=== PATIENT | female | born 1975 ===

== ENCOUNTER 2020-03-13 12:33 | Outpatient (REF) | payer OTHER, SELFPAY | END 2020-03-13 12:34 | disposition home or self-care (01) | LOC: HO.HMGCLDS 12:33 | PROVIDERS: PCP Internal Medicine; Visit Provider Internal Medicine | DX: Z20.828 Contact with and (suspected) exposure to other viral communicable diseases (principal) | CPT/HCPCS: 87635 ==

== ENCOUNTER 2020-03-25 14:33 | Outpatient (REF) | payer OTHER, SELFPAY ==
--- NOTE | 2020-03-25 | MM_ITS ---
EXAMINATION: MM DIAGNOSTIC DIGITAL BREAST TOMOSYNTHESIS, BILATERAL CLINICAL INFORMATION: Probable benign tightly grouped calcifications anterior central 3:00 left breast initially noted at baseline exam. Due for yearly. The lifetime risk of breast cancer based on the Tyrer-Cuzick Model is 8%. COMPARISON: Mammography: 03/19/2019, 09/08/2018, 03/03/2018, 02/21/2018 (baseline, BI-RADS 0). TECHNIQUE: Digital breast tomosynthesis is performed in both the craniocaudal and mediolateral oblique views along with computer-aided detection (CAD). Synthesized 2D images are generated from the tomosynthesis. Additional magnification left CC and magnification left ML views are obtained. FINDINGS: There are scattered areas of fibroglandular density (ACR BI-RADS breast composition Category b). Breast tissue composition borders on heterogeneously dense. There is no interval mass or architectural abnormality. No abnormal calcifications. The grouped benign calcifications anterior central 3:00 left breast are stable and now considered benign. There are scattered punctate calcifications in each breast which are benign as well. The axilla and skin contours are unremarkable. Results are provided to the patient at time of visit by the technologist. MM/MM tomosynthesis diagnostic BI IMPRESSION: No mammographic evidence of malignancy. Left breast calcifications for follow-up are now considered benign. ASSESSMENT: BI-RADS 2: Benign RECOMMENDATION: Routine annual mammography screening. This patient's information was entered into a reminder system with a target due date for their next mammogram.
== END 2020-03-25 14:34 | disposition home or self-care (01) ==
LOC: HO.MAMMO 14:33
PROVIDERS: Visit Provider Internal Medicine
DX: R92.1 Mammographic calcification found on diagnostic imaging of breast (principal)
CPT/HCPCS: 77062; 77066

== ENCOUNTER 2020-09-18 08:38 | Outpatient (REF) | payer OTHER, SELFPAY ==
[2020-09-18 15:19] LABS: CT PCR NOT DETECTED (Not Detect.); NG PCR NOT DETECTED (Not Detect.)
[2020-09-19 08:52] LABS: BV Int Neg Control Negative (Negative); BV Int Pos Control Positive (Positive)
[2020-09-22 19:22] LABS: HPV mRNA E6/E7 rflx Not Detected (Not Detected)
== END 2020-09-18 08:39 | disposition home or self-care (01) ==
LOC: HO.LAB 08:38
PROVIDERS: PCP Internal Medicine; Visit Provider Obstetrics & Gynecology
DX: Z01.419 Encounter for gynecological examination (general) (routine) without abnormal findings (principal); Z11.51 Encounter for screening for human papillomavirus (HPV); Z11.3 Encounter for screening for infections with a predominantly sexual mode of transmission; N92.1 Excessive and frequent menstruation with irregular cycle; N93.0 Postcoital and contact bleeding; R32 Unspecified urinary incontinence; B37.3 Candidiasis of vulva and vagina
CPT/HCPCS: 87480; 87491; 87510; 87591; 87624; 87660; 88142

== ENCOUNTER 2020-09-19 09:33 | Outpatient (REF) | payer OTHER, SELFPAY ==
[2020-09-19 10:40] LABS: Hematocrit 36.2 % (37-47); Hemoglobin 11.6 g/dl (12.0-16.0); Mean Corpuscular Hemoglobin 27.2 pg (27.0-33.0); Mean Platelet Volume 10.5 fL (9.4-12.3); Platelet Count 295 X10*3/uL (160-400); Red Blood Count 4.26 X10*6/uL (4.20-5.50); Red Cell Distribution Width 13.6 % (11.0-16.0); White Blood Count 6.3 X10*3/uL (4.8-10.8)
[2020-09-19 11:13] LABS: HCG Quantitative < 2 mIU/mL; Thyroid Stimulating Hormone 1.12 uIU/mL (0.32-4.0)
== END 2020-09-19 09:34 | disposition home or self-care (01) ==
LOC: HO.LAB 09:33
PROVIDERS: PCP Internal Medicine; Visit Provider Obstetrics & Gynecology
DX: N92.1 Excessive and frequent menstruation with irregular cycle (principal)
CPT/HCPCS: 36415; 84443; 84702; 85027

== ENCOUNTER 2020-09-29 13:13 | Outpatient (REF) | payer OTHER, SELFPAY ==
--- NOTE | ~2020-09-29 | US_ITS ---
EXAMINATION: PELVIC ULTRASOUND CLINICAL INFORMATION: Specimen frequent menstruation with irregular cycle COMPARISON: Previous exam most recent June 2016 TECHNIQUE: Transabdominal and transvaginal pelvic ultrasound was performed. Transvaginal exam was performed for better visualization of the uterus and ovaries. FINDINGS: The uterus is anteverted and measures 9.1 x 4.9 x 5.5 cm in dimension. There is a small hypoechoic lesion in the right lower uterine body near the endometrium measuring 0.6 x 0.4 x 0.8 cm suggestive of a small fibroid. No other focal uterine lesion is seen. Endometrial thickness is normal measuring 0.3 cm. There are nabothian cysts in the cervix. The right ovary is normal-appearing and measures 2.6 x 1.3 x 1.9 cm. The left ovary is not seen. There is no fluid in the pelvis. US/US transvaginal IMPRESSION: Small right uterine body fibroid. Normal thickness endometrium. Left ovary not seen.
--- NOTE | ~2020-09-29 | US_ITS ---
EXAMINATION: PELVIC ULTRASOUND CLINICAL INFORMATION: Specimen frequent menstruation with irregular cycle COMPARISON: Previous exam most recent June 2016 TECHNIQUE: Transabdominal and transvaginal pelvic ultrasound was performed. Transvaginal exam was performed for better visualization of the uterus and ovaries. FINDINGS: The uterus is anteverted and measures 9.1 x 4.9 x 5.5 cm in dimension. There is a small hypoechoic lesion in the right lower uterine body near the endometrium measuring 0.6 x 0.4 x 0.8 cm suggestive of a small fibroid. No other focal uterine lesion is seen. Endometrial thickness is normal measuring 0.3 cm. There are nabothian cysts in the cervix. The right ovary is normal-appearing and measures 2.6 x 1.3 x 1.9 cm. The left ovary is not seen. There is no fluid in the pelvis. US/US pelvic complete IMPRESSION: Small right uterine body fibroid. Normal thickness endometrium. Left ovary not seen.
== END 2020-09-29 13:14 | disposition home or self-care (01) ==
LOC: HO.US 13:13
PROVIDERS: PCP Internal Medicine; Visit Provider Obstetrics & Gynecology
DX: N92.1 Excessive and frequent menstruation with irregular cycle (principal)
CPT/HCPCS: 76830; 76856

== ENCOUNTER 2020-10-02 13:40 | Outpatient (REF) | payer OTHER, SELFPAY | END 2020-10-02 13:41 | disposition home or self-care (01) | LOC: HO.LAB 13:40 | PROVIDERS: PCP Internal Medicine; Visit Provider Obstetrics & Gynecology | DX: N92.1 Excessive and frequent menstruation with irregular cycle (principal) | CPT/HCPCS: 58100; 81025; 88305 ==

== ENCOUNTER → 2020-10-07 11:33 | Outpatient (BNVA) | payer OTHER, SELFPAY | PROVIDERS: PCP Internal Medicine; Visit Provider Obstetrics & Gynecology ==

== ENCOUNTER → 2020-11-20 15:34 | Outpatient (BNVA) | payer OTHER, SELFPAY | PROVIDERS: PCP Internal Medicine; Visit Provider Obstetrics & Gynecology | DX: Z30.430 Encounter for insertion of intrauterine contraceptive device (principal); N92.1 Excessive and frequent menstruation with irregular cycle | CPT/HCPCS: 58300 ==

== ENCOUNTER 2020-12-18 13:46 | Outpatient (REF) | payer OTHER, SELFPAY ==
[2020-12-19 10:19] LABS: BV Int Neg Control Negative (Negative); BV Int Pos Control Positive (Positive)
[2020-12-19 11:47] LABS: CT PCR NOT DETECTED (Not Detect.); NG PCR NOT DETECTED (Not Detect.)
== END 2020-12-18 13:47 | disposition home or self-care (01) ==
LOC: HO.LAB 13:46
PROVIDERS: PCP Internal Medicine; Visit Provider Obstetrics & Gynecology
DX: Z30.431 Encounter for routine checking of intrauterine contraceptive device (principal); B96.89 Other specified bacterial agents as the cause of diseases classified elsewhere; N76.0 Acute vaginitis
CPT/HCPCS: 87480; 87491; 87510; 87591; 87660; 99212

== ENCOUNTER 2020-12-31 14:33 | Outpatient (REF) | payer OTHER, SELFPAY | END 2020-12-31 14:34 | disposition home or self-care (01) | LOC: HO.LNP 14:33 | PROVIDERS: PCP Internal Medicine | DX: R32 Unspecified urinary incontinence (principal); R31.9 Hematuria, unspecified | CPT/HCPCS: 51798; 87086; 99202; 99212 ==

== ENCOUNTER → 2021-01-13 15:28 | Outpatient (BNVA) | payer OTHER, SELFPAY | PROVIDERS: PCP Internal Medicine ==

== ENCOUNTER 2021-05-01 09:27 | Emergency (ER) | payer OTHER, SELFPAY ==
--- NOTE | ~2021-05-01 | CT_ITS ---
EXAMINATION: CT HEAD WITHOUT CONTRAST CLINICAL INFORMATION: Severe migraine with photophobia COMPARISON: None TECHNIQUE: Contiguous axial imaging was performed from the skull base to vertex without intravenous administration of contrast. This CT examination was performed using dose optimization techniques as appropriate, variously including the following: *Automated exposure control *Adjustment of mA and/or kV according to patient size (this includes techniques or standardized protocols for targeted exams where dose is matched to indication/reason for exam; i.e. extremities or head) *Use of iterative reconstruction technique DLP: 748 mGy-cm FINDINGS: There is no evidence of acute intracranial hemorrhage or territorial infarction. No abnormal mass effect or midline shift is seen. Crabtree to white matter differentiation is well preserved. No extra-axial fluid collections are identified. The ventricles are normal in size. There is no abnormal attenuation within the brain parenchyma. The osseous structures and soft tissues are normal. There is mild mucoperiosteal thickening bilateral maxillary sinuses. Rest the paranasal sinuses and mastoid air cells are well-aerated. CT/CT head/brain wo con IMPRESSION: No acute intracranial process seen
[2021-05-01 10:43] VITALS: BP 146/73; PULSE 73; RESP 16; TEMP 36.8; O2SAT 98; BMI 36.3
--- NOTE | 2021-05-01 11:16 | ED_ITS ---
HPI - Headache General Chief Complaint: Headache Stated Complaint: migraine Time Seen by Provider: 05/01/21 11:14 Source: patient Mode of arrival: ambulatory Limitations: no limitations History of Present Illness HPI Narrative: 46-year-old female past medical history significant for obesity, tension-type headache, anxiety, depression presents to the emergency department with complaints of a migraine, light sensitivity, and decreased appetite X 3 days. Patient tells me that this headache has been progressively worsening over the past 3 days, states that started in the occipital portion of her head but has moved to the front. she tells me she is prescribed sumatriptan which she has been taking around the clock, and it has not been helping. She tells me that this feels like her typical migraine however she is very worried because she recently found out that her mom has a brain tumor, and they mention that might be hereditary. She also mentions that she is under lot of stress, she is taking care of a sick family member at home. She reports associated nausea. But she has not vomited. She denies chest pain, shortness of breath, fevers, chills, vomiting, diarrhea, abdominal pain, dizziness, vision changes, weakness. MD elicited complaint: headache and migraine Pertinent past history: migraines Onset (ago): day(s) (Three) Onset description: gradually Location: frontal Severity: moderate Pain scale (0-10): 10 Quality & Timing: throbbing Exacerbating factors: light and other (Food) Relieving factors: nothing Associated symptoms: nausea, photophobia and sensitivity to sound Treatments prior to arrival: other (Sumatriptan) Related Data Home Medications Medication Instructions Recorded Confirmed cetirizine 10 mg tablet (Zyrtec) 10 mg PO DAILY PRN 10/07/20 02/17/21 levonorgestrel 20 mcg/24 hours (7 INTRAUTERINE 12/18/20 02/17/21 yrs) 52 mg intrauterine device (Mirena) Previous Rx's Medication Instructions Recorded bupropion HCl 150 mg 24 hr tablet, 150 mg PO QAM 90 Days #90 tab 02/17/21 extended release sumatriptan succinate 25 mg tablet 25 mg PO Q2-4H PRN 30 Days #9 tab 02/17/21 metronidazole 500 mg tablet 500 mg PO Q12H 7 Days #14 tab 03/13/21 cyclobenzaprine 10 mg tablet 10 mg PO BEDTIME PRN #7 tab 05/01/21 diphenhydramine HCl 25 mg capsule 25 mg PO BEDTIME PRN #14 cap 05/01/21 (Benadryl) metoclopramide HCl 10 mg tablet 10 mg PO Q6H PRN #14 tab 05/01/21 (Reglan) Allergies Allergy/AdvReac Type Severity Reaction Status Date / Time No Known Allergies Allergy Unknown UNKNOWN Verified 03/13/21 09:41 Review of Systems Review of Systems: Constitutional : No Weight loss, No Fever, No Chills, No Fatigue, No Malaise ENT/Mouth : No sore throat, No Rhinorrhea Eyes: No Eye Pain, No Swelling, No Redness Cardiovascular : No Chest Pain, No SOB, No Dyspnea on Exertion, No Orthopnea, No Edema, No Palpitations Respiratory : No Cough, No Sputum, No Wheezing Gastrointestinal : + Nausea, No Vomiting, No Diarrhea, No Constipation, No abdominal Pain, No Hematochezia, No Melena Genitourinary : No Dysuria, No Urinary Frequency, No Hematuria, Musculoskeletal : No joint pain, No Myalgias, No Joint Swelling Skin : No Skin Lesions, No rash Neuro : No Weakness, No Numbness, No Dizziness, + Headache All other systems reviewed and are negative Yes all other systems are reviewed and are negative [facility] Past Medical History Attestation statement: The following information was validated with the patient. Source: old records reviewed and nursing notes reviewed Medical History Allergic rhinitis Class 2 obesity with body mass index (BMI) of 36.0 to 36.9 in adult Depression with anxiety GEORGES (generalized anxiety disorder) Mild recurrent major depression Tension headache Urge and stress incontinence Surgical History History of gastric surgery History of laparoscopic cholecystectomy History of surgery History of tubal ligation Family History Family History Father Hypertension Overweight Stroke Prediabetes Enlarged heart Mother Osteoporosis Maternal Grandmother Stroke Diabetes Paternal Grandfather Prostate cancer Family/Other Substance use disorder Mental health disorder Social History Social History Housing: Apartment Alcohol intake: never Patient Tobacco Use Status: Never used Tobacco e-Cigarette/Vaping Use: Never Used Second Hand Smoke Exposure: No Use of substances other than those prescribed or required for medical reasons: No Advance Directives: No Advance Directives Information Provided: Yes service: No Current occupational status: employed Current occupational exposures/hazards: No Physical Exam Vital Signs: Vital Signs: Last Vital Signs Temp 98.2 F 05/01/21 10:43 Pulse 78 05/01/21 12:02 Resp 18 05/01/21 12:02 BP 142/90 H 05/01/21 12:02 Pulse Ox 98 05/01/21 12:02 BMI result Body Mass Index 36.3 Vital signs are stable, patient noted to be slightly hypertensive. Appearance: Alert.? Oriented X3.? No acute distress.? Head: Normocephalic, atraumatic, no step-offs or deformities Eyes: Pupils equal, round and reactive to light. Extraocular movements intact, no nystagmus or pain. ENT: Pharynx normal.? Neck: Normal inspection.? Neck supple.? CVS: Normal heart rate and rhythm.? Pulses normal.? Respiratory: No respiratory distress.? Breath sounds normal.? Abdomen: Soft and nontender.? Skin: Skin warm and dry.? Normal skin color.? Normal skin turgor.? Extremities: No lower extremity edema.? No calf ttp. 5/5 strength to bilateral upper and lower extremities Back: No midline tenderness, no C-spine tenderness, full range of motion, no CVA tenderness bilaterally Neuro: Oriented X 3.? No motor deficit.? No sensory deficit. Normal [id number], sepg-fl-qwog, hand circuit recorder. Course Reevaluation(s) Reevaluation #1: Labs show no acute infection, no anemia no electrolyte abnormalities. Urine is not concerning for urinary tract infection. CT of the head/brain negative. At this time patient's most likely diagnosis is tension type headache. She has noted significant improvement with fluids, Reglan, Benadryl and Toradol. At this time plan is to discharge patient home as she is feeling much better. I will discharge her on Reglan, Benadryl, and have advised her to take Excedrin [id number] as needed for migraines. She should follow-up with her PCP. And I have told her to return to the emergency department with new or worsening symptoms. Time: 12:34 MDM - Headache MDM Narrative Medical decision making narrative: [id number] YO F pmhx obesity, tension-type headache, anxiety, depression presents to the emergency department with complaints of a migraine, photophobia, and anorexia X3 days despite taking her normal headache medications sumatriptan. Upon physical examination patient appears well, she is lying on the stretcher in a dark room with her eyes closed. S1-S2 appreciated they have murmurs. Lungs are clear to auscultation. Abdomen soft nontender nondistended. No focal neuro deficits. Normal exjhoe-hk-mydr, mdtq-zv-lvel hand circuit recorder. Patient is ambulating with a steady gait, no ataxia. At this time this appears to be in normal tension type headache, patient tells me she frequently gets these, patient is under lot of stress, and this is consistent with her history and physical examination. Patient's physical examination, and history are not consistent with meningitis However, I will rule out intracranial pathologies, ICH. Plan at this time is to obtain basic labs, COVID, magnesium, urine, urine pregn tasneem, CT of the cervical spine, head/brain. She will be medicated for comfort. Lab Data Result diagrams: 05/01/21 11:46 12 11:46 Labs: Lab Results 05/01/21 12 12 Range/Units 11:46 11:46 11:46 WBC 8.7 (4.8-10.8) X10*3/uL RBC 4.63 (4.20-5.50) X10*6/uL Hgb 12.3 (12.0-16.0) g/dl Hct 38.9 (37.0-47.0) % MCV 84.0 (80.0-98.0) fL MCH 26.6 L (27.0-33.0) pg MCHC 31.6 (31.0-35.0) g/dl RDW 14.7 (11.0-16.0) % Plt Count 342 (160-400) X10*3/uL MPV 9.9 (9.4-12.3) fL Immature Gran % (Auto) 0.2 (0.0-0.4) % Neut % (Auto) 59.9 (45-73) % Lymph % (Auto) 32.8 (20-40) % [place] % (Auto) 5.7 (2-11) % Eos % (Auto) 1.1 (0-4) % Baso % (Auto) 0.3 (0-2) % Lymph # (Auto) 2.9 (1.2-4.9) X10*3/uL [place] # (Auto) 0.5 (0.1-1.2) X10*3/uL Eos # (Auto) 0.1 (0.0-0.4) X10*3/uL Baso # (Auto) 0.0 (0.0-0.2) X10*3/uL Abs Immat Gran (auto) 0.02 (0.00-0.03) X10*3/uL Absolute Neuts (auto) 5.2 (2.0-8.3) x10*3/uL Absolute Nucleated RBC 0.000 (0.0-0.012) X10*3/uL Nucleated RBC % (auto) 0.0 (0.0-0.2) /100WBC Sodium 139 (135-145) mmol/L Potassium 4.1 (3.3-5.1) mmol/L Chloride 107 (96-108) mmol/L Carbon Dioxide 24 (22-29) mmol/L Anion Gap 12 (12-20) BUN 12 (9-16) mg/dL Creatinine 0.77 (0.5-1.4) mg/dL Estim Creat Clear Calc 101.0 Estimated GFR > 60 Random Glucose 91 (60-115) mg/dL Calcium 9.2 (8.4-10.2) mg/dL Magnesium 2.1 (1.6-2.6) mg/dL Total Bilirubin 0.3 (0.0-1.0) mg/dL AST 15 (5-31) U/L ALT 15 (0-31) U/L Alkaline Phosphatase 93 (39-117) U/L Total Protein 7.5 (6.5-8.0) g/dL Albumin 4.2 (3.5-5.0) g/dL Urine Test (NEGATIVE) COVID-19 (TEETEE) Negative (Negative) COVID-19 Clin Com See Note 12/03/21 Range/Units 11:51 WBC (4.8-10.8) X10*3/uL RBC (4.20-5.50) X10*6/uL Hgb (12.0-16.0) g/dl Hct (37.0-47.0) % MCV (80.0-98.0) fL MCH (27.0-33.0) pg MCHC (31.0-35.0) g/dl RDW (11.0-16.0) % Plt Count (160-400) X10*3/uL MPV (9.4-12.3) fL Immature Gran % (Auto) (0.0-0.4) % Neut % (Auto) (45-73) % Lymph % (Auto) (20-40) % Oldham % (Auto) (2-11) % Eos % (Auto) (0-4) % Baso % (Auto) (0-2) % Lymph # (Auto) (1.2-4.9) X10*3/uL Oldham # (Auto) (0.1-1.2) X10*3/uL Eos # (Auto) (0.0-0.4) X10*3/uL Baso # (Auto) (0.0-0.2) X10*3/uL Abs Immat Gran (auto) (0.00-0.03) X10*3/uL Absolute Neuts (auto) (2.0-8.3) x10*3/uL Absolute Nucleated RBC (0.0-0.012) X10*3/uL Nucleated RBC % (auto) (0.0-0.2) /100WBC Sodium (135-145) mmol/L Potassium (3.3-5.1) mmol/L Chloride (96-108) mmol/L Carbon Dioxide (22-29) mmol/L Anion Gap (12-20) BUN (9-16) mg/dL Creatinine (0.5-1.4) mg/dL Estim Creat Clear Calc Estimated GFR Random Glucose (60-115) mg/dL Calcium (8.4-10.2) mg/dL Magnesium (1.6-2.6) mg/dL Total Bilirubin (0.0-1.0) mg/dL AST (5-31) U/L ALT (0-31) U/L Alkaline Phosphatase (39-117) U/L Total Protein (6.5-8.0) g/dL Albumin (3.5-5.0) g/dL Urine Test NEGATIVE (NEGATIVE) COVID-19 (TEETEE) (Negative) COVID-19 Clin Com Critical Care Time Critical Care Time Critical Care Time: No Discharge Plan Discharge Clinical Impression: Tension headache, Migraine Patient Disposition: Home, Self-Care Instructions: Migraine Headache (ED), Tension Headache (ED) Additional Instructions: Take your medications as prescribed. Follow-up with your primary care provider this week. Return to the emergency department with new or worsening symptoms. In case of emergency call 911 Prescriptions: New metoclopramide HCl [Reglan] 10 mg tablet 10 mg PO Q6H PRN (Reason: nausea and vomiting) Qty: 14 RF: 0 diphenhydramine HCl [Benadryl] 25 mg capsule 25 mg PO BEDTIME PRN (Reason: nausea and vomiting) Qty: 14 RF: 0 cyclobenzaprine 10 mg tablet 10 mg PO BEDTIME PRN (Reason: muscle spasm) Qty: 7 RF: 0 No Action sumatriptan succinate 25 mg tablet 25 mg PO Q2-4H PRN (Reason: migraine headache) 30 Days Qty: 9 RF: 2 bupropion HCl 150 mg tablet extended release 24 hr 150 mg PO QAM 90 Days Qty: 90 RF: 0 metronidazole 500 mg tablet 500 mg PO Q12H 7 Days Qty: 14 RF: 0 Mirena 20 mcg/24 hours (6 yrs) 52 mg intrauterine device intrauterine RF: 0 cetirizine [Zyrtec] 10 mg tablet 10 mg PO DAILY PRNRF: 0 Referrals: Darby Joseph MD [Primary Care Provider] - 2 days Stand Alone Forms: Work/School Release
[2021-05-01] MEDS: diphenhydrAMINE HCL 50 MG/ML VIAL IVPUSH (11:57)
[2021-05-01] MEDS: Ketorolac Tromethamine 15 MG/ML VIAL 30 MG IVPUSH (11:58)
[2021-05-01 12:00] LABS: MANUAL DIFF FLAG NO
[2021-05-01] MEDS: Metoclopramide HCl 10 MG/2 ML VIAL IVPUSH (12:00)
[2021-05-01] MEDS: 0.9 % Sodium Chloride 1,000 ML 999 ML IV (12:01)
[2021-05-01 12:02] VITALS: BP 142/90; PULSE 78; RESP 18; O2SAT 98
[2021-05-01 12:04] LABS: Basophils Percent Auto 0.3 % (0-2); Eosinophils Absolute Auto 0.1 X10*3/uL (0.0-0.4); Eosinophils Percent Auto 1.1 % (0-4); Hematocrit 38.9 % (37.0-47.0); Hemoglobin 12.3 g/dl (12.0-16.0); Imm Gran Abs Auto 0.02 X10*3/uL (0.00-0.03); Imm Gran Pct Auto 0.2 % (0.0-0.4); Lymphocytes Absolute Auto 2.9 X10*3/uL (1.2-4.9); Lymphocytes Percent Auto 32.8 % (20-40); Mean Corpuscular HGB Conc 31.6 g/dl (31.0-35.0); Mean Corpuscular Hemoglobin 26.6 pg (27.0-33.0); Mean Platelet Volume 9.9 fL (9.4-12.3); Monocytes Absolute Auto 0.5 X10*3/uL (0.1-1.2); Monocytes Percent Auto 5.7 % (2-11); Neutrophils Absolute Auto 5.2 x10*3/uL (2.0-8.3); Neutrophils Percent Auto 59.9 % (45-73); Platelet Count 342 X10*3/uL (160-400); Red Blood Count 4.63 X10*6/uL (4.20-5.50); Red Cell Distribution Width 14.7 % (11.0-16.0); White Blood Count 8.7 X10*3/uL (4.8-10.8)
[2021-05-01 12:15] LABS: Alanine Aminotransferase 15 U/L (0-31); Albumin Level 4.2 g/dL (3.5-5.0); Alkaline Phosphatase 93 U/L (39-117); Anion Gap 12 (12-20); Aspartate Amino Transferase 15 U/L (5-31); Bilirubin Total 0.3 mg/dL (0.0-1.0); Blood Urea Nitrogen 12 mg/dL (9-16); Calcium 9.2 mg/dL (8.4-10.2); Carbon Dioxide 24 mmol/L (22-29); Chloride 107 mmol/L (96-108); Estimated Glomerular Filt Rate > 60; Glucose Random 91 mg/dL (60-115); Magnesium 2.1 mg/dL (1.6-2.6); Potassium 4.1 mmol/L (3.3-5.1); Sodium 139 mmol/L (135-145); Total Protein 7.5 g/dL (6.5-8.0)
[2021-05-01 12:21] LABS: COVID-19 Test Negative (Negative); IDNOW Serial# 9DD0AD1C
[2021-05-01 12:21] LABS: UPreg QC Valid YES; Urine Pregnancy NEGATIVE (NEGATIVE)
[2021-05-01 12:24] LABS: Appearance Urine CLEAR; Color Urine YELLOW; Glucose Urine UA NEG (NEG); Leukocyte Esterase Urine TRACE (NEG); Nitrite Urine NEG (NEG); UACC Culture Trigger YES; Urine Blood NEG (NEG); Urine Ketones NEG (NEG); Urine Protein NEG (NEG-TRACE)
[2021-05-01 12:56] VITALS: BP 121/68; PULSE 74
[2021-05-01 13:13] LABS: RBC Urine 0-2 /HPF (0); WBC Urine 0-2 /HPF (0-4)
[2021-05-01 13:14] LABS: Squamous Epithelial Cell Urine 1+ /LPF
== END 2021-05-01 13:01 | disposition home or self-care (01) ==
PROVIDERS: Physician Assistant; Emergency Provider Emergency Medicine; PCP Internal Medicine
DX: G44.209 Tension-type headache, unspecified, not intractable (principal); G43.009 Migraine without aura, not intractable, without status migrainosus; Z20.822 Contact with and (suspected) exposure to COVID-19
CPT/HCPCS: 36415; 70450; 80053; 81001; 81003; 81025; 83735; 85025; 87086; 87635; 96361; 96374; 96375; 99285; J1200; J1885; J2765

== ENCOUNTER 2021-10-29 09:36 | Inpatient (IN) | payer OTHER, SELFPAY ==
--- NOTE | ~2021-10-29 | XR_ITS ---
EXAMINATION: XR CHEST CLINICAL INFORMATION: Pain COMPARISON: 04/10/2017 TECHNIQUE: Frontal view of the chest was obtained. FINDINGS: Cardiac leads overlie the chest. The lungs are well expanded. There is no focal consolidation, edema, or effusion. No pneumothorax. The cardiomediastinal silhouette is within normal limits. No acute osseous abnormality. XR/XR chest 1V IMPRESSION: Clear lungs.
[2021-10-29 09:37] VITALS: BP 156/83; PULSE 88; RESP 18; TEMP 36.6; O2SAT 97; BMI 35.0
--- NOTE | 2021-10-29 09:40 | ECG_ITS ---
Test Reason : cp Blood Pressure : / mmHG Vent. Rate : 087 BPM Atrial Rate : 087 BPM P-R Int : 156 ms QRS Dur : 078 ms QT Int : 358 ms P-R-T Axes : 036 018 030 degrees QTc Int : 430 ms Normal sinus rhythm Normal ECG When compared to the previous EKG of No significant changes seen Referred By: Generic ED Physician Electronically Signed By:HARPREET PENA MD
[2021-10-29 09:52] LABS: Hematocrit 40.3 % (37.0-47.0); Hemoglobin 12.9 g/dl (12.0-16.0); Mean Corpuscular Hemoglobin 26.9 pg (27.0-33.0); Mean Platelet Volume 9.6 fL (9.4-12.3); Platelet Count 290 X10*3/uL (160-400); Red Cell Distribution Width 13.7 % (11.0-16.0); White Blood Count 7.4 X10*3/uL (4.8-10.8)
--- NOTE | 2021-10-29 10:14 | ED_ITS ---
HPI - Chest Pain General Chief Complaint: Chest Pain Stated Complaint: chest pain high bp Time Seen by Provider: 10/29/21 10:12 Source: patient Mode of arrival: ambulatory Limitations: no limitations History of Present Illness HPI narrative: did recent chest and arms at gym, no OCPs, started last night, also dealing with a migraine MD complaint: chest pain (migraine) Onset (ago): day(s) (last night) Timing of current episode: constant Prior episodes: No Onset: during rest Pain location: left chest Pain radiation: none Severity: mild Quality: aching Relieving factors: nothing Exacerbating factors: palpation and movement Associated symptoms: other (also dealing with a migraine currently) Treatment prior to arrival: none Related Data Previous Rx's Medication Instructions Recorded topiramate 25 mg tablet 25 mg PO BID 90 Days #180 tab 08/25/21 sumatriptan succinate 25 mg tablet 25 mg PO Q2-4H PRN 30 Days #9 tab 09/15/21 bupropion HCl 150 mg 24 hr tablet, 150 mg PO QAM 90 Days #90 tab 10/19/21 extended release Allergies Allergy/AdvReac Type Severity Reaction Status Date / Time No Known Allergies Allergy Unknown UNKNOWN Verified 08/25/21 17:15 Review of Systems Review of Systems: Constitutional : No Weight loss, No Fever, No Chills ENT/Mouth : No sore throat, No Rhinorrhea Eyes: No Eye Pain, No Swelling Cardiovascular : pos Chest Pain, no SOB, no Dyspnea on Exertion, No Orthopnea, No Edema, No Palpitations Respiratory : No Cough, No Sputum Gastrointestinal : pos Nausea, No Vomiting, No Diarrhea, No abdominal Pain, No Hematochezia, No Melena Genitourinary : No Dysuria, No Urinary Frequency Musculoskeletal : No joint pain, No Myalgias, No Joint Swelling Skin : No Skin Lesions, No rash Neuro : No Weakness, No Numbness, No Dizziness, pos Headache Psych : No Anxiety/Panic, No Depression Heme/Lymph: No Bruising, No Lymphadenopathy Endocrine : No Polyuria, No Polydipsia All other systems reviewed and are negative [facility] Past Medical History Attestation statement: The following information was validated with the patient. Medical History Allergic rhinitis Class 2 obesity with body mass index (BMI) of 36.0 to 36.9 in adult Depression with anxiety GEORGES (generalized anxiety disorder) Migraines Mild recurrent major depression Tension headache Urge and stress incontinence Surgical History History of gastric surgery History of laparoscopic cholecystectomy History of surgery History of tubal ligation Family History Family History Father Hypertension Overweight Stroke Prediabetes Enlarged heart Mother Osteoporosis Maternal Grandmother Stroke Diabetes Paternal Grandfather Prostate cancer Family/Other Substance use disorder Mental health disorder Social History Social History Housing: Apartment Alcohol intake: never Patient Tobacco Use Status: Never used Tobacco e-Cigarette/Vaping Use: Never Used Second Hand Smoke Exposure: No Advance Directives: No Advance Directives Information Provided: No service: No Current occupational status: employed Current occupational exposures/hazards: No Physical Exam Vital Signs: Vital Signs: Last Vital Signs Temp 97.8 F 10/29/21 09:37 Pulse 62 10/29/21 14:30 Resp 19 10/29/21 14:30 BP 145/95 H 10/29/21 14:30 Pulse Ox 100 10/29/21 14:30 BMI result Body Mass Index 35.0 Appearance: Alert. Oriented X3. No acute distress. Eyes: Pupils equal, round and reactive to light. ENT: Pharynx normal. Neck: Normal inspection. Neck supple. CVS: Normal heart rate and rhythm. Pulses normal. Chest: ttp along left pectoralis reproduces pain Respiratory: No respiratory distress. Breath sounds normal. Abdomen: Soft and nontender. Skin: Skin warm and dry. Normal skin color. Normal skin turgor. Extremities: No lower extremity edema. No calf ttp Neuro: Oriented X 3. No motor deficit. No sensory deficit. Course Course Course Narrative: CPK elevated 3L of IVF ordered, will repeat CPK increasing CPK - put on rate of NS and admit MDM - Chest Pain MDM Narrative Medical decision making narrative: 46 yo female with hx of migraines, anxiety, depression here with c/o migraine typical for her as well as c/o L sided chest wall pain after doing arms and chest at gym yesterday - her BP is high but she has a headache. Doubt [employer] infection as this is typical for her. She is not toxic, no fevers, normal neuro exam. no AC therapy. She has no signs of DVT, no OCPs use - PERC negative. EKG, troponin x 1, migraine cocktail. CPK ordered given muscles aches post lifting workout. Dispo per results and findings. Lab Data Result diagrams: 10/29/21 09:47 10/29/21 09:47 Labs: Lab Results 10/29/21 10/29/21 10/29/21 Range/Units 09:47 09:47 09:47 WBC 7.4 (4.8-10.8) X10*3/uL RBC 4.80 (4.20-5.50) X10*6/uL Hgb 12.9 (12.0-16.0) g/dl Hct 40.3 (37.0-47.0) % MCV 84.0 (80.0-98.0) fL MCH 26.9 L (27.0-33.0) pg MCHC 32.0 (31.0-35.0) g/dl RDW 13.7 (11.0-16.0) % Plt Count 290 (160-400) X10*3/uL MPV 9.6 (9.4-12.3) fL Absolute Nucleated RBC 0.000 (0.0-0.012) X10*3/uL Nucleated RBC % (auto) 0.0 (0.0-0.2) /100WBC Sodium 139 (135-145) mmol/L Potassium 4.4 (3.3-5.1) mmol/L Chloride 107 (96-108) mmol/L Carbon Dioxide 25 (22-29) mmol/L Anion Gap 11 L (12-20) BUN 10 (9-16) mg/dL Creatinine 0.83 (0.5-1.4) mg/dL Estim Creat Clear Calc 92.0 Estimated GFR > 60 Random Glucose 86 (60-115) mg/dL Calcium 9.6 (8.4-10.2) mg/dL Total Creatine Kinase 2976 H (26-140) U/L Troponin I High Sens < 3.5 (<3.5-17.0) ng/L COVID-19 (TEETEE) (Negative) COVID-19 Clin Com 10/29/21 10/29/21 Range/Units 13:19 14:30 WBC (4.8-10.8) X10*3/uL RBC (4.20-5.50) X10*6/uL Hgb (12.0-16.0) g/dl Hct (37.0-47.0) % MCV (80.0-98.0) fL MCH (27.0-33.0) pg MCHC (31.0-35.0) g/dl RDW (11.0-16.0) % Plt Count (160-400) X10*3/uL MPV (9.4-12.3) fL Absolute Nucleated RBC (0.0-0.012) X10*3/uL Nucleated RBC % (auto) (0.0-0.2) /100WBC Sodium (135-145) mmol/L Potassium (3.3-5.1) mmol/L Chloride (96-108) mmol/L Carbon Dioxide (22-29) mmol/L Anion Gap (12-20) BUN (9-16) mg/dL Creatinine (0.5-1.4) mg/dL Estim Creat Clear Calc Estimated GFR Random Glucose (60-115) mg/dL Calcium (8.4-10.2) mg/dL Total Creatine Kinase 3394 H (26-140) U/L Troponin I High Sens (<3.5-17.0) ng/L COVID-19 (TEETEE) Negative (Negative) COVID-19 Clin Com See Note ECG Data ECG #1: Attestation: I personally reviewed and interpreted this ECG as follows: ECG interpretation date: 10/29/21 ECG interpretation time: : Interpretation: Rate: 87 Rhythm: NSR Kramer: normal Normal P waves. Normal CARL. Normal QRS complex. ST T wave : normal no PHUONG qTC: normal prior studies: no acute ischemia The study has been interpreted contemporaneously by me. . Critical Care Time Critical Care Time Critical Care Time: Yes Total Critical Care Time: 35 Attestation: 3L of IVF, IVF continuous, repeat labs - admission for rhabdomyloysis I attest to this time spent taking care of the patient Discharge Plan Discharge Clinical Impression: Atypical chest pain, Migraines Rhabdomyolysis Qualifiers: Rhabdomyolysis type: non-traumatic Qualified Code(s): M62.82 - Rhabdomyolysis Patient Disposition: Admitted As Inpatient
[2021-10-29 10:22] VITALS: PULSE 68
[2021-10-29 10:23] LABS: Anion Gap 11 (12-20); Blood Urea Nitrogen 10 mg/dL (9-16); Calcium 9.6 mg/dL (8.4-10.2); Carbon Dioxide 25 mmol/L (22-29); Chloride 107 mmol/L (96-108); Estimated Glomerular Filt Rate > 60; Glucose Random 86 mg/dL (60-115); Potassium 4.4 mmol/L (3.3-5.1); Sodium 139 mmol/L (135-145); Troponin-I High Sensitivity < 3.5 ng/L (<3.5-17.0)
[2021-10-29] MEDS: 0.9 % Sodium Chloride 1,000 ML 999 ML IV ×3 (10:45→12:06)
[2021-10-29] MEDS: Ketorolac Tromethamine 30 MG/ML VIAL IVPUSH (10:45)
[2021-10-29 13:14] VITALS: BP 147/95; PULSE 63; RESP 16; O2SAT 100
--- NOTE | 2021-10-29 14:18 | PHA.MEDREC ---
Pharmacy Consult ? Medication Reconciliation Pharmacy has completed the medication reconciliation. Patient reported all medications. Elizabeth Mckeon, MiloD
[2021-10-29 14:30] VITALS: BP 145/95; PULSE 62; RESP 19; O2SAT 100
--- NOTE | 2021-10-29 14:31 | PC.NURSE ---
nad, skin wpd, states pain is improved, awaiting hospitalist,
[2021-10-29] MEDS: 0.9 % Sodium Chloride 1,000 ML 200 ML IVCONT ×2 (14:32→19:06)
[2021-10-29 14:51] LABS: COVID-19 Test Negative (Negative)
--- NOTE | 2021-10-29 15:23 | PM.IMHP ---
History of Present Illness Date of Service: 10/29/21 Chief Complaint: chest discomfort 46 year-old woman with history of gastric sleeve and migraine headaches who started a intensive weightlifting/strength-training program 3x weekly 1 month ago including extensive pectoral muscle workouts. Yesterday morning, she developed vague chest discomfort that is non-radiating, non-exertional, and moderate in intensity. No associated dyspnea or diaphoresis. Worse with pressing on her chest wall/rib cage. Not worsened by activity. She also complains of throbbing headache without nausea or vomiting. Chest pain has improved considerably. She denies cocaine, stimulant, or performance-enhancing drug use. In the ED, she was found to have CPK of 2976; 3394 on repeat. Hs-Tn-I was <3.5. Serum creatinine 0.83. She was 3L of IV NS as well as ketorolac and metoclopramide for migraine. Review of Systems Review of Systems: Yes all other systems are reviewed and are negative [facility] Medical History Allergic rhinitis Class 2 obesity with body mass index (BMI) of 36.0 to 36.9 in adult Depression with anxiety GEORGES (generalized anxiety disorder) Migraines Mild recurrent major depression Tension headache Urge and stress incontinence Family History Father Hypertension Overweight Stroke Prediabetes Enlarged heart Mother Osteoporosis Maternal Grandmother Stroke Diabetes Paternal Grandfather Prostate cancer Family/Other Substance use disorder Mental health disorder Surgical History History of gastric surgery History of laparoscopic cholecystectomy History of surgery History of tubal ligation Social History Housing: Apartment Alcohol intake: never Patient Tobacco Use Status: Never used Tobacco e-Cigarette/Vaping Use: Never Used Second Hand Smoke Exposure: No Advance Directives: No Advance Directives Information Provided: No service: No Current occupational status: employed Current occupational exposures/hazards: No Meds Allergies Allergy/AdvReac Type Severity Reaction Status Date / Time No Known Allergies Allergy Unknown UNKNOWN Verified 08/25/21 17:15 Active Medications: Current Medications Acetaminophen (Acetaminophen 325 Mg Tablet) 650 mg PO Q6H PRN PRN Reason: Pain, Mild (Pain Scale 1-3) Bupropion HCl (Bupropion Hcl Xl 150 Mg Tab.Er.24h) 150 mg PO QAM ZAC Enoxaparin Sodium (Enoxaparin Sodium 40 Mg/0.4 Ml Syringe) 40 mg SUBCUT Q24H ZAC Sodium Chloride (Ns) 1,000 mls @ 200 mls/hr IVCONT .Q5H ZAC Last Admin: 10/29/21 14:32 Dose: 200 mls/hr Documented by: Sodium Chloride (Ns) 1,000 mls @ 125 mls/hr IVCONT .Q8H ZAC Ondansetron HCl (Ondansetron Hcl 4 Mg/2 Ml Vial) 4 mg IVPUSH Q8H PRN PRN Reason: Nausea and Vomiting Pharmacy Consult (Consult Rx Perform Med Rec) 1 each MISCELLANE ONCE PRN PRN Reason: Consult order Sodium Chloride (0.9 % Sodium Chloride Flush 3 Ml Syringe) 3 ml IVFLUSH QSHIFT ZAC Sumatriptan Succinate (Sumatriptan Succinate 25 Mg Tablet) 25 mg PO Q2-4H PRN PRN Reason: migraine headache Topiramate (Topiramate 25 Mg Tablet) 25 mg PO BID [facility] Physical Exam Vital Signs and Narrative: Vital Signs: Last Vital Signs Temp 97.8 F 10/29/21 09:37 Pulse 62 10/29/21 14:30 Resp 19 10/29/21 14:30 BP 145/95 H 10/29/21 14:30 Pulse Ox 100 10/29/21 14:30 BMI result Body Mass Index 35.0 Gen: in no acute distress HEENT: sclera anicteric, moist mucus membranes Neck: supple Lungs: clear to auscultation bilaterally Heart: regular rate and rhythm, no murmurs, reproducible chest wall tenderness Abd: soft, non-tender, non-distended Ext: no edema Skin: warm/well-perfused Neuro: alert and oriented x3, no focal findings Psych: appropriate affect Results Labs CBC and Chem 7: 10/29/21 09:47 10/29/21 09:47 Labs: Laboratory Results - last 24 hr 10/29/21 10/29/21 10/29/21 09:47 09:47 09:47 MCV 84.0 MCH 26.9 L MCHC 32.0 RDW 13.7 Plt Count 290 MPV 9.6 Absolute Nucleated RBC 0.000 Nucleated RBC % (auto) 0.0 Anion Gap 11 L Estim Creat Clear Calc 92.0 Estimated GFR > 60 Random Glucose 86 Calcium 9.6 Total Creatine Kinase 2976 H Troponin I High Sens < 3.5 COVID-19 ([facility]) COVID-19 Clin Com 10/29/21 10/29/21 13:19 14:30 MCV MCH MCHC RDW Plt Count MPV Absolute Nucleated RBC Nucleated RBC % (auto) Anion Gap Estim Creat Clear Calc Estimated GFR Random Glucose Calcium Total Creatine Kinase 3394 H Troponin I High Sens COVID-19 ([facility]) Negative COVID-19 Clin Com See Note Imaging Radiologist's Impressions: Impressions Chest X-Ray 10/29/21 10:57 IMPRESSION: Clear lungs. Assessment and Plan (1) Rhabdomyolysis: Status: Acute Plan 46 year-old woman presenting with musculoskeletal chest pain after starting a strength training program 1 month ago and found to have rhabdomyolysis without renal injury. # exercise-induced rhabdomyolysis - admit to M/S, give IV normal saline, trend CPK and monitor BMP, send Utox # atypical chest pain - likely MSK, give prn APAP + lidocaine patch # migraine BRASWELL - continue topiramate + prn sumatriptan chronic issues: # mood disorder: continue bupropion # VTE ppx: LMWH # code: full I anticipate that the patient will stay at least 2 midnights in hospital due to the above reasons. It is not reasonable or safe to care for them in a less acute setting. Quality Stroke Does the patient have a stroke diagnosis?: No VTE Prior VTE?: No VTE Risk Level:: Medical - moderate - high VTE Device Contraindication: N/A - Device Ordered VTE Drug Contraindication: N/A - Med Ordered
[2021-10-29] MEDS: Enoxaparin Sodium 40 MG/0.4 ML SYRINGE SUBCUT (15:42)
[2021-10-29 16:32] VITALS: BP 130/79; PULSE 73; RESP 20; TEMP 36.9; O2SAT 99
[2021-10-29 18:10] LABS: Appearance Urine CLEAR; Color Urine YELLOW; Glucose Urine UA NEG (NEG); Leukocyte Esterase Urine NEG (NEG); Nitrite Urine NEG (NEG); PH 6.5 (5.0-8.0); Specific Gravity - Urine 1.015 (1.005-1.025); Urine Blood NEG (NEG); Urine Ketones NEG (NEG); Urine Protein NEG (NEG-TRACE)
[2021-10-29 18:46] LABS: Amphetamine Screen Urine Not Detected (Not Detect); Barbiturates, Urine Not Detected (Not Detect); Benzodiazepines Screen Urine Not Detected (Not Detect); Cannabinoid Screen Urine Not Detected (Not Detect); Cocaine Screen Urine Not Detected (Not Detect); Fentanyl, urine Not Detected (Not Detect); Opiate Screen Urine Not Detected (Not Detect); Phencyclidine Screen Urine Not Detected (Not Detect)
[2021-10-29] MEDS: Topiramate 25 MG TABLET PO (20:35)
[2021-10-30] MEDS: 0.9 % Sodium Chloride 1,000 ML 200 ML IVCONT ×5 (00:32→22:04)
[2021-10-30 05:12] VITALS: BP 123/81; PULSE 71; RESP 18; O2SAT 98
[2021-10-30 07:17] LABS: Anion Gap 9 (12-20); Blood Urea Nitrogen 9 mg/dL (9-16); Calcium 8.5 mg/dL (8.4-10.2); Carbon Dioxide 20 mmol/L (22-29); Chloride 112 mmol/L (96-108); Creatinine Clr Calc Pharmacy 107.5; Estimated Glomerular Filt Rate > 60; Glucose Random 97 mg/dL (60-115); Potassium 4.3 mmol/L (3.3-5.1); Sodium 137 mmol/L (135-145)
[2021-10-30] MEDS: Topiramate 25 MG TABLET PO ×2 (09:38→20:58)
[2021-10-30] MEDS: buPROPion HCl XL 150 MG TAB.ER.24H PO (09:38)
--- NOTE | 2021-10-30 13:47 | MHC.CM.PN ---
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
[2021-10-30 16:00] VITALS: BP 150/80; PULSE 82; RESP 16; TEMP 36.6; O2SAT 98
[2021-10-30] MEDS: Enoxaparin Sodium 40 MG/0.4 ML SYRINGE SUBCUT (17:16)
--- NOTE | 2021-10-30 19:19 | PC.NURSE ---
Took report from Ira to assume care of Pt, Pt resting comfortably with family at bedside, all Pt needs met at this time, call allen in reach, this RN continues to monitor.
[2021-10-30 20:47] VITALS: BMI 34.9
[2021-10-30 21:04] VITALS: BP 149/89; PULSE 88; RESP 18; O2SAT 97
[2021-10-30 23:13] VITALS: BP 132/81; PULSE 73; RESP 18; TEMP 36.3; O2SAT 100
[2021-10-31] MEDS: 0.9 % Sodium Chloride 1,000 ML 200 ML IVCONT ×2 (02:37→06:16)
[2021-10-31 04:00] VITALS: TEMP 36.1; O2SAT 100
[2021-10-31 07:20] VITALS: BP 129/78; PULSE 66; RESP 20; TEMP 36.2; O2SAT 99
[2021-10-31] MEDS: buPROPion HCl XL 150 MG TAB.ER.24H PO (08:41)
[2021-10-31] MEDS: Topiramate 25 MG TABLET PO (08:41)
--- NOTE | 2021-10-31 09:59 | PM.DS ---
DS: Providers Provider Date of Service: 10/31/21 Date of admission: 10/29/21 15:18 Primary care physician: Darby Bishop MD DS: Diagnosis Discharge Diagnosis (1) Rhabdomyolysis: Status: Acute (2) Rhabdomyolysis: Status: Acute DS: Summary Hospital Course Hospital Course: Chief Complaint: chest discomfort 46 year-old woman with history of gastric sleeve and migraine headaches who started a intensive weightlifting/strength-training program 3x weekly 1 month ago including extensive pectoral muscle workouts.? Yesterday morning, she developed vague chest discomfort that is non-radiating, non-exertional, and moderate in intensity.? No associated dyspnea or diaphoresis.? Worse with pressing on her chest wall/rib cage.? Not worsened by activity.? She also complains of throbbing headache without nausea or vomiting.? Chest pain has improved considerably.? She denies cocaine, stimulant, or performance-enhancing drug use. In the ED, she was found to have CPK of 2976; 3394 on repeat.? Hs-Tn-I was <3.5.? Serum creatinine 0.83.? She was 3L of IV NS as well as ketorolac and metoclopramide for migraine. Hospital course: Patient was admitted with atypical chest pain likely related to chest pain and found to have elevated CPK level raising concern of rhabdomylosis related to exercise. Troponin was normal. Initial CPK was in 1999s and peaked at around 4600 and is coming down. She is advised to drink plenty of fluid and avoid exercise for a week, and when exercising should drink pleny of water. Time Spent with Patient Time attestation: Total time spent providing and/or coordinating discharge services: Discharge coordination time: Greater than 30 minutes Quality: Safe Use of Opioids Does Pt have an Active Cancer Diagnosis on the Problem List?: No Quality: Stroke Does the patient have a stroke diagnosis?: No Physical Exam Vital Signs: Vital Signs: Last Vital Signs Temp 97.2 F 10/31/21 07:20 Pulse 66 10/31/21 07:20 Resp 20 10/31/21 07:20 BP 129/78 10/31/21 07:20 Pulse Ox 99 10/31/21 07:20 BMI result Body Mass Index 34.9 DS: Data Data Completed and Pending Labs on day of discharge: Laboratory Results - last 24 hr 10/30/21 10/31/21 14:12 08:02 Total Creatine Kinase 4609 H 4359 H Discharge Plan Discharge Anticipated Discharge Date/Time: 10/31/21 09:57 Patient Disposition: Home, Self-Care Discharge Diagnosis: chest pain, rhabdomylosis Referrals: Darby Joseph MD [Primary Care Provider] - 1 Week Discharge Medications: Continued sumatriptan succinate 25 mg tablet 25 mg PO Q2-4H PRN (Reason: migraine headache) 30 Days Qty: 9 2RF Rx Instructions: do not exceed 8 doses per 24 hrs bupropion HCl 150 mg tablet extended release 24 hr 150 mg PO QAM 90 Days Qty: 90 0RF topiramate 25 mg tablet 25 mg PO BID 90 Days Qty: 180 1RF Discharge Orders: Discharge Order (Routine); Ordered 10/31/21 Ordered By: Gutierrez Zapien Diet: advance to usual diet Activity on Discharge: As tolerated Stand Alone Forms: Patient Portal Discharge page Other Ambulatory Orders: Creatine Kinase Total (Routine) Timeframe: [id number] Facility: [facility] - Location: Laboratory Ordered By: Gutierrez Zapien Care Plan Goals: Full recovery from rhabdomylosis Health Concerns: rhabdomylosis Plan of Treatment: Drink plenty of water, avoid exercise for 1 week Assessment: as above
--- NOTE | 2021-10-31 10:24 | MHC.CM.PN ---
PT TO DC HOME TODAY WITH NO SERVICES SHE WILL TRANSPORT HERSELF, CAR IS IN LOT
[2021-10-31 10:29] LABS: Anion Gap 10 (12-20); Blood Urea Nitrogen 6 mg/dL (9-16); Calcium 8.4 mg/dL (8.4-10.2); Carbon Dioxide 21 mmol/L (22-29); Chloride 112 mmol/L (96-108); Creatinine Clr Calc Pharmacy 104.4; Estimated Glomerular Filt Rate > 60; Glucose Random 109 mg/dL (60-115); Potassium 4.1 mmol/L (3.3-5.1); Sodium 139 mmol/L (135-145)
== END 2021-10-31 11:58 | disposition home or self-care (01) | DRG 351 ==
LOC: HO.ED 14:03 → HO.EDOVER 15:23 → HO.IMC 10-30 17:56
PROVIDERS: Admitting Provider Family Medicine; Emergency Provider Emergency Medicine; PCP Internal Medicine; Visit Provider Internal Medicine
DX: M62.82 Rhabdomyolysis (principal); F32.9 Major depressive disorder, single episode, unspecified; F41.1 Generalized anxiety disorder; G43.909 Migraine, unspecified, not intractable, without status migrainosus; Z20.822 Contact with and (suspected) exposure to COVID-19; Z98.84 Bariatric surgery status; Z98.51 Tubal ligation status; Z79.899 Other long term (current) drug therapy
CPT/HCPCS: 36415; 71045; 80048; 80307; 81003; 82550; 84484; 85027; 87635; 93005; 96361; 96374; 96375; 99284; 99285; J1650; J1885

== ENCOUNTER 2021-11-25 14:25 | Outpatient (REF) | payer OTHER, SELFPAY ==
--- NOTE | ~2021-11-25 | MM_ITS ---
EXAMINATION: MM SCREENING DIGITAL BREAST TOMOSYNTHESIS, BILATERAL CLINICAL INFORMATION: Screening. Asymptomatic. The lifetime risk of breast cancer based on the Tyrer-Cuzick Model is 8%. COMPARISON: Mammography: 03/25/2020, 03/19/2019, 09/08/2018, 03/03/2018, 02/21/2018 (baseline). TECHNIQUE: Digital breast tomosynthesis is performed in both the craniocaudal and mediolateral oblique views along with computer-aided detection (CAD). Synthesized 2D images are generated from the tomosynthesis. FINDINGS: The breasts are heterogeneously dense, which may obscure small masses (ACR BI-RADS breast composition Category c). There are no significant masses, abnormal calcifications, or other abnormalities. Breast tissue composition borders on average fibroglandular. There is no developing density or interval architectural abnormality. The axilla and skin contours are unremarkable. MM/MM tomosynthesis screening BI IMPRESSION: No mammographic evidence of malignancy. ASSESSMENT: BI-RADS 1: Negative RECOMMENDATION: Routine annual mammography screening. This patient's information was entered into a reminder system with a target due date for their next mammogram.
== END 2021-11-25 14:26 | disposition home or self-care (01) ==
LOC: HO.MAMMO 14:25
PROVIDERS: Visit Provider Internal Medicine
DX: Z12.31 Encounter for screening mammogram for malignant neoplasm of breast (principal)
CPT/HCPCS: 77063; 77067

== ENCOUNTER 2022-12-10 09:58 | Outpatient (AMB) | payer OTHER, SELFPAY ==
[2022-12-10 10:03] VITALS: BP 120/82; PULSE 93; O2SAT 97; BMI 35.1
--- NOTE | 2022-12-10 10:03 | MHC.PC.OV ---
Vital Signs 12/10/22 10:03 Height 5 ft 3 in Weight 198 lb 6 oz BMI 35.1 BP 120/82 Blood Pressure Location Lt brachial Position Sitting Pulse 93 Pulse Source Pulse Oximeter Pulse Oximetry (%) 97 Oxygen Delivery Method Room Air Intake Visit Reasons: Annual [employer] Director Required: No Accompanied by: Self / Same As Patient Allergies No Known Allergies Allergy (Unknown, Verified 12/10/22 10:18) UNKNOWN Medication List - Last Reconciled 12/10/22 by MARIAN Ashford topiramate 25 mg PO BID 90 days Tobacco use date assessed: 12/10/22 Dental Screening Dental Screen Date: 12/10/22 Did you have a dental visit in the last 12 months?: No Did you have a dental problem in the last 6 months where you did not have access to dental care?: No Was dental information given to patient?: No HPI HPI Comments History of Present Illness Details This is a 47-year-old female with mild recurrent major depression, generalized anxiety disorder, urinary incontinence and migraines. Patient Dr. Velazco last seen in April for telehealth appointment. Patient presents today for physical exam. Patient denies any chest pain, palpitations, shortness of breath and syncope. Patient reports she titrated herself off her bupropion as she fell it was not working for her. Patient does continue to have positive PHQ-9 offered referral to counseling however she declines at this time. Denies SI/HI. Mammogram: 11/25/21, appointment scheduled for this month Colonoscopy: [facility] 2 years ago HX gastritis, negative 10 yr follow up Eye exam: Recommended Pap smear: Patients states due, will call to schedule. [facility] Medical History Allergic rhinitis Class 2 obesity with body mass index (BMI) of 36.0 to 36.9 in adult Depression with anxiety GEORGES (generalized anxiety disorder) Migraines Mild recurrent major depression Tension headache Urge and stress incontinence Surgical History History of gastric surgery History of laparoscopic cholecystectomy History of surgery History of tubal ligation Family History (Updated 12/10/22 @ 10:21 by MARIAN Ashford) Father Hypertension Overweight Stroke Prediabetes Enlarged heart Mother Osteoporosis Hemangiopericytic meningioma Maternal Grandmother Stroke Diabetes Paternal Grandfather Prostate cancer Family/Other Substance use disorder Mental health disorder Social History (Updated 12/10/22 @ 10:21 by MARIAN Ashford) Household Members: Children Housing: Apartment Alcohol intake: current Alcohol intake frequency: a few times a month Patient Tobacco Use Status: Never used Tobacco e-Cigarette/Vaping Use: Never Used Second Hand Smoke Exposure: No service: No Current occupational status: employed Current occupational exposures/hazards: No Cognitive needs: No Hearing needs: No Vision needs: No Female Reproductive History Menstrual Age of Menarche: 14 Questionnaire PHQ-9 Over the last 2 weeks, how often have you been bothered by any of the following problems? 1. Little interest or pleasure in doing things: several days 2. Feeling down, depressed, or hopeless: nearly every day 3. Trouble falling or staying asleep, or sleeping too much: several days 4. Feeling tired or having little energy: more than half the days 5. Poor appetite or overeating: more than half the days 6. Feeling bad about yourself - or that you are a failure or have let yourself or your family down: not at all 7. Trouble concentrating on things, such as reading the newspaper or watching television: not at all 8. Moving or speaking so slowly that other people could have noticed. Or the opposite - being so fidgety or restless that you have been moving around a lot more than usual: not at all 9. Thoughts that you would be better off or of hurting yourself in some way: not at all Total score: 9 Depression Screening Interpretation: Positive Depression Screening Follow-up: Existing condition and In treatment 66862 - PHQ-9 Billing: Yes Source: Developed by Drs. Cm Jarquin, Pamela Hood, Fuad Arriola and colleagues, with an educational patricia from [employer]. Thrive Questionnaire Date Thrive assessed: 12/10/22 I am a: Patient What is your living situation today?: I have a steady place to live Within the past 12 months, did the food you bought not last and you didn't have the money to get more?: Never true Within the past 12 months, did you worry whether your food would run out before you got money to buy more?: Never true Do you have trouble paying for medicines?: No Do you have trouble getting transportation to medical appointments?: No Do you have trouble paying your heating and electricity bill?: No Do you have trouble taking care of your child, family member or friend?: No Do you have trouble with day-to-day activities such as bathing, preparing meals, shopping, managing finances, etc.?: No Are you currently unemployed and looking for a job?: No Are you interested in more education?: No Please select the resources that you would like help with: None Currently or been in a relationship where the following occur: no concerns reported AUDIT C Alcohol Use Questionnaire (AUDIT-C) 1. How often do you have a drink containing alcohol?: Never Total Score: 0 Score Reviewed/Action Taken: Yes GEORGES-7 AMB Questionnaire GEORGES-7 Date GEORGES - 7 assessed: 12/10/22 Feeling nervous, anxious, or on edge: 0 = Not at all Not being able to stop or control worryin = Not at all Worrying too much about different things: 0 = Not at all Trouble relaxin = Not at all Being so restless that it is hard to sit still: 0 = Not at all Becoming easily annoyed or irritable: 0 = Not at all Feeling afraid as if something awful might happen: 0 = Not at all Total GEORGES-7 score (0-4 normal; 5-9 mild; 10-14 moderate; 15-21 severe): 0 Source: Developed by Drs. Cm Jarquin, Pamela Hood, Fuad Arriola and colleagues, with an educational patricia from [employer]. GEORGES-7 Assessment Billing GEORGES-7 Assessment Tool: GEORGES-7 Assessment 09510 Review of Systems Const Denies chills, Denies fatigue, Denies fever(s) and Denies poor appetite Eyes Denies no additional complaints ENT Reports Normal hearing present Card Denies chest pain, Denies syncope, Denies rapid heart rate and Denies dyspnea Resp Denies cough and Denies dyspnea GI Denies change in stool character, Denies constipation, Denies diarrhea, Denies nausea and Denies vomiting Denies urinary frequency, Denies dysuria and Denies urinary urgency Neuro Reports Normal hearing present, Denies confusion and Denies syncope Psych Denies confusion Endo Denies fatigue Physical exam (Primary Care) Vital Signs: Last Vital Signs Pulse 93 12/10/22 10:03 BP 120/82 12/10/22 10:03 Pulse Ox 97 12/10/22 10:03 Oxygen Delivery Method Room Air 12/10/22 10:03 BMI result Body Mass Index 35.1 Tobacco/Smoking Status: Tobacco use Status Tobacco use date assessed 12/10/22 12/10/22 10:09 Patient Tobacco Use Status Never used Tobacco 12/10/22 10:21 e-Cigarette/Vaping Use Never Used 12/10/22 10:21 PHQ-9: PHQ-9 Score PHQ-9: Total score 9 12/10/22 10:27 Depression Screening Interpretation: Positive Depression Screening Follow-up: Existing condition and In treatment Thrive Assessment: Date of Thrive Assessment Date Thrive assessed 12/10/22 12/10/22 10:09 Currently or been in a relationship where the following occur: no concerns reported Const General: No confusion Orientation/consciousness: No confusion HENMT Head: Yes normocephalic and Yes atraumatic Ears: external ears normal and TM's normal bilaterally General nose exam: Normal external nose present and Normal nasal mucous membranes and turbinates present Face and sinus: Yes normal facial exam and Yes sinuses nontender Mouth: moist mucous membranes Throat: Yes tonsils normal Eyes Conjunctivae: conjunctivae normal Sclerae: sclerae normal Pupils: Equal, round and reactive pupils present and Pupils normal by confrontation EOM: EOMs intact bilaterally Direct Ophthalmoscopy: normal light reflex Neck Neck: Yes no lymphadenopathy and Yes supple Thyroid: Thyroid normal Chest Chest palpation & inspection: normal inspection of the chest Resp Effort & Inspection: normal respiratory effort Auscultation: clear to auscultation bilaterally, no crackles, no rhonchi and no wheezes Cardio Rate: regular rate Rhythm: regular rhythm Peripheral pulses: radial pulses present and dorsalis pedis present GI Inspection: Yes normal to inspection Palpation (GI): Soft to palpation, nontender and No hepatosplenomegaly present Auscultation: normoactive bowel sounds Skin General skin exam: no rashes or lesions noted Neuro General: No confusion Cranial nerves: Yes Equal, round and reactive pupils present and Yes Normal hearing present Cognition (Neuro): normal cognition Gait exam (Neuro): Normal gait present Motor exam (neuro): 5/5 motor strength present throughout Deep tendon reflexes (DTR's): Right brachioradialis reflex intensity grade: 2+, Left brachioradialis reflex intensity grade: 2+, Right patellar reflex intensity grade: 2+ and Left patellar reflex intensity grade: 2+ Extrem General: No edema Assessment and Plan Assessment & Plan (1) Physical exam: Code(s): Z00.00 - Encounter for general adult medical examination without abnormal findings Plan: Fasting blood work ordered. Follow-up in 1 year (2) Migraines: Code(s): G43.909 - Migraine, unspecified, not intractable, without status migrainosus Plan: Continue on topiramate 25 mg b.i.d.. Patient denies any recent migraines. (3) Depression with anxiety: Code(s): F41.8 - Other specified anxiety disorders Plan: Decline referral to counseling or the need for medication this time. (4) Class 2 obesity with body mass index (BMI) of 36.0 to 36.9 in adult: Code(s): E66.9 - Obesity, unspecified; Z68.36 - Body mass index [BMI] 36.0-36.9, adult Qualifiers: Obesity type: due to excess calories Serious obesity comorbidity presence: without serious comorbidity Qualified Code(s): E66.09 - Other obesity due to excess calories; Z68.36 - Body mass index [BMI] 36.0-36.9, adult Plan: Patient states currently going to the gym and following a healthy to reduce BMI. Positive reinforcement given patient to continue diet and exercising to reduce BMI. Plan Follow-up in 1 year. Orders: Orders Comprehensive [place]. Panel Fast Today Z13.1 - Encounter for screening for diabetes mellitus Lipid Panel Today Z13.220 - Encounter for screening for lipoid disorders TSH reflex Free T4 Today Z13.29 - Encounter for screening for other suspected endocrine disorder Vitamin D 25-OH Total Today Z13.21 - Encounter for screening for nutritional disorder Complete Blood Count Auto Diff Today Z13.0 - Encounter for screening for diseases of the blood and blood-forming organs and certain disorders involving the immune mechanism Coding Level of Care Code Est Pt Prev Care 40-64y([id number]) Diagnoses Physical exam Z00.00 Migraines G43.909 Depression with anxiety F41.8 Class 2 obesity with body mass index (BMI) of 36.0 to 36.9 in adult E66.09; Z68.36 Obesity type: due to excess calories Serious obesity comorbidity presence: without serious comorbidity Additional Codes GEORGES-7 Assessment Billing - GEORGES-7 Assessment Tool: GEORGES-7 Assessment [id number] ([id number])
== END 2022-12-10 10:34 | disposition home or self-care (01) ==
PROVIDERS: PCP Internal Medicine; Visit Provider Nurse Practitioner Family
DX: Z00.00 Encounter for general adult medical examination without abnormal findings (principal); Z68.36 Body mass index [BMI] 36.0-36.9, adult; E66.09 Other obesity due to excess calories; G43.909 Migraine, unspecified, not intractable, without status migrainosus; F41.8 Other specified anxiety disorders; Z13.30 Encounter for screening examination for mental health and behavioral disorders, unspecified
CPT/HCPCS: 99396

== ENCOUNTER 2023-01-07 10:00 | Outpatient (REF) | payer OTHER, SELFPAY ==
--- NOTE | ~2023-01-07 | MM_ITS ---
EXAMINATION: MM SCREENING DIGITAL BREAST TOMOSYNTHESIS, BILATERAL CLINICAL INFORMATION: Screening. Asymptomatic. COMPARISON: Mammography: This study is compared with prior exams dating back to TECHNIQUE: Digital breast tomosynthesis is performed in both the craniocaudal and mediolateral oblique views along with computer-aided detection (CAD). Synthesized 2D images are generated from the tomosynthesis. FINDINGS: The breasts are heterogeneously dense, which may obscure small masses (ACR BI-RADS breast composition Category c). There are no significant masses, abnormal calcifications, or other abnormalities. MM/MM tomosynthesis screening BI IMPRESSION: No mammographic evidence of malignancy. ASSESSMENT: BI-RADS BI-RADS 1 - Negative RECOMMENDATION: Routine annual mammography screening. 1 year F/U This examination should not preclude the clinical evaluation of a suspicious palpable abnormality. This patient's information was entered into a reminder system with a target due date for their next mammogram.
== END 2023-01-07 10:01 | disposition home or self-care (01) ==
LOC: HO.MAMMO 10:00
PROVIDERS: Visit Provider Internal Medicine
DX: Z12.31 Encounter for screening mammogram for malignant neoplasm of breast (principal)
CPT/HCPCS: 77063; 77067

== ENCOUNTER → 2023-01-07 10:15 | Outpatient (BNV) | payer OTHER, SELFPAY | PROVIDERS: Visit Provider Radiology Diagnostic Radiology | DX: Z12.31 Encounter for screening mammogram for malignant neoplasm of breast (principal) | CPT/HCPCS: 77063; 77067 ==

== ENCOUNTER 2023-02-16 16:11 | Outpatient (REF) | payer OTHER, SELFPAY ==
[2023-02-16 17:39] LABS: Appearance Urine Clear; Color Urine Yellow; Glucose Urine UA Negative (Negative); Leukocyte Esterase Urine Small (1+) (Negative); Nitrite Urine Negative (Negative); PH 6.5 (5.0-9.0); Specific Gravity - Urine <= 1.005 (1.005-1.025); UMIC TRIGGER UACC YES; Urine Blood Negative (Negative); Urine Ketones Negative (Negative); Urine Protein Negative (Neg-Trace)
[2023-02-16 17:53] LABS: Bacteria Urine None Seen (None Seen); Hyaline Casts Urine 0-2 /LPF (0-2); RBC Urine 0-2 /HPF (0-2); Squamous Epithelial Cell Urine 0-2 /HPF (0-2); UACC Culture Trigger YES; WBC Urine 0-5 /HPF (0-5)
== END 2023-02-16 16:12 | disposition home or self-care (01) ==
LOC: HO.LAB 16:11
PROVIDERS: PCP Internal Medicine; Visit Provider Internal Medicine
DX: R39.9 Unspecified symptoms and signs involving the genitourinary system (principal)
CPT/HCPCS: 81001; 87086

== ENCOUNTER 2023-02-18 10:48 | Outpatient (REF) | payer OTHER, SELFPAY ==
[2023-02-18 11:23] LABS: MANUAL DIFF FLAG NO
[2023-02-18 11:45] LABS: Basophils Percent Auto 0.3 % (0-2); Eosinophils Absolute Auto 0.1 X10*3/uL (0.0-0.4); Hematocrit 42.6 % (37.0-47.0); Hemoglobin 14.2 g/dl (12.0-16.0); Imm Gran Abs Auto 0.02 X10*3/uL (0.00-0.03); Imm Gran Pct Auto 0.3 % (0.0-0.4); Lymphocytes Absolute Auto 2.6 X10*3/uL (1.2-4.9); Lymphocytes Percent Auto 37.3 % (20-40); Mean Corpuscular HGB Conc 33.3 g/dl (31.0-35.0); Mean Corpuscular Hemoglobin 28.6 pg (27.0-33.0); Mean Corpuscular Volume 85.9 fL (80.0-98.0); Mean Platelet Volume 10.1 fL (9.4-12.3); Monocytes Absolute Auto 0.4 X10*3/uL (0.1-1.2); Monocytes Percent Auto 6.4 % (2-11); Neutrophils Absolute Auto 3.8 x10*3/uL (2.0-8.3); Neutrophils Percent Auto 54.7 % (45-73); Platelet Count 324 X10*3/uL (160-400); Red Blood Count 4.96 X10*6/uL (4.20-5.50); Red Cell Distribution Width 12.5 % (11.0-16.0); White Blood Count 6.9 X10*3/uL (4.8-10.8)
[2023-02-18 12:40] LABS: Alanine Aminotransferase 11 U/L (0-31); Albumin Level 4.3 g/dL (3.5-5.0); Alkaline Phosphatase 87 U/L (39-117); Anion Gap 10 (12-20); Aspartate Amino Transferase 16 U/L (5-31); Bilirubin Total 0.5 mg/dL (0.0-1.0); Blood Urea Nitrogen 9 mg/dL (9-16); Calcium 9.6 mg/dL (8.4-10.2); Carbon Dioxide 26 mmol/L (22-29); Chloride 108 mmol/L (96-108); Cholesterol 187 mg/dL (<200); Estimated Glomerular Filt Rate > 60; Glucose Fasting 101 mg/dL (60-99); HDL Cholesterol 47 mg/dL (>40); LDL Cholesterol Calculated 124 mg/dL (<100); Potassium 4.2 mmol/L (3.3-5.1); Sodium 140 mmol/L (135-145); TSH reflex Free T4 0.91 uIU/mL (0.32-4.0); Total Protein 7.8 g/dL (6.5-8.0); Triglycerides 81 mg/dL (<150); Vitamin D 25-OH Total 56.5 ng/mL (>30)
== END 2023-02-18 10:49 | disposition home or self-care (01) ==
LOC: HO.LAB 10:48
PROVIDERS: PCP Internal Medicine; Visit Provider Nurse Practitioner Family
DX: Z13.0 Encounter for screening for diseases of the blood and blood-forming organs and certain disorders involving the immune mechanism (principal); Z13.1 Encounter for screening for diabetes mellitus; Z13.220 Encounter for screening for lipoid disorders; Z13.29 Encounter for screening for other suspected endocrine disorder; Z13.21 Encounter for screening for nutritional disorder
CPT/HCPCS: 36415; 80053; 80061; 82306; 84443; 85025

== ENCOUNTER 2023-12-13 14:13 | Outpatient (AMB) | payer BC, SELFPAY ==
--- NOTE | 2023-12-13 14:22 | A.OFFPC_ITS ---
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 Required: No Accompanied by: Self / Same As Patient Allergies No Known Allergies Allergy (Unknown, Verified 12/13/23 14:40) UNKNOWN Medication List - Last Reconciled 12/13/23 by Darby Bishop MD tirzepatide (weight loss) (Zepbound) 7.5 mg subcut QWEEK Tobacco use date assessed: 12/13/23 Dental Screening Dental Screen Date: 12/13/23 Did you have a dental visit in the last 12 months?: Yes Did you have a dental problem in the last 6 months where you did not have access to dental care?: No Was dental information given to patient?: Patient has dentist HPI HPI Comments History of Present Illness Details This is a 48-year-old female that comes for her physical exam. Pap smear done 2020. Colonoscopy less than 10 years ago was normal as per patient. Mammogram done 2022 was normal. No acute complaints. [facility]MERLY [facility] Medical History (Updated 12/13/23 @ 16:23 by Darby Bishop MD) Migraines Mild recurrent major depression GEORGES (generalized anxiety disorder) Class 2 obesity with body mass index (BMI) of 36.0 to 36.9 in adult Tension headache Urge and stress incontinence Depression with anxiety Allergic rhinitis Surgical History History of surgery History of gastric surgery History of laparoscopic cholecystectomy History of tubal ligation Family History (Updated 12/13/23 @ 14:46 by Darby Bishop MD) Father Hypertension Overweight Stroke Enlarged heart Diabetes mellitus CKD stage 3 due to type 2 diabetes mellitus Mother Osteoporosis Hemangiopericytic meningioma Maternal Grandmother Stroke Diabetes mellitus Paternal Grandfather Prostate cancer Family/Other Substance use disorder Mental health disorder Social History Household Members: Children Housing: Apartment Alcohol intake: current Alcohol intake frequency: a few times a month Patient Tobacco Use Status: Never used Tobacco e-Cigarette/Vaping Use: Never Used Second Hand Smoke Exposure: No service: No Current occupational status: employed Current occupational exposures/hazards: No Cognitive needs: No Hearing needs: No Vision needs: No Female Reproductive History Menstrual Age of Menarche: 14 Questionnaire PHQ-9 Over the last 2 weeks, how often have you been bothered by any of the following problems? 1. Little interest or pleasure in doing things: not at all 2. Feeling down, depressed, or hopeless: not at all 3. Trouble falling or staying asleep, or sleeping too much: not at all 4. Feeling tired or having little energy: not at all 5. Poor appetite or overeating: not at all 6. Feeling bad about yourself - or that you are a failure or have let yourself or your family down: not at all 7. Trouble concentrating on things, such as reading the newspaper or watching television: not at all 8. Moving or speaking so slowly that other people could have noticed. Or the opposite - being so fidgety or restless that you have been moving around a lot more than usual: not at all 9. Thoughts that you would be better off or of hurting yourself in some way: not at all Total score: 0 Depression Screening Interpretation: Negative Depression Screening Done: Yes 54039 - PHQ-9 Billing: Yes Source: Developed by Drs. Cm Jarquin, Pamela Hood, Fuad Arriola and colleagues, with an educational patricia from [employer]. Thrive Questionnaire Date Thrive assessed: 12/13/23 I am a: Patient What is your living situation today?: I have a steady place to live Within the past 12 months, did the food you bought not last and you didn't have the money to get more?: Never true Within the past 12 months, did you worry whether your food would run out before you got money to buy more?: Never true Do you have trouble paying for medicines?: No Do you have trouble getting transportation to medical appointments?: No Do you have trouble paying your heating and electricity bill?: No Do you have trouble taking care of your child, family member or friend?: No Do you have trouble with day-to-day activities such as bathing, preparing meals, shopping, managing finances, etc.?: No Are you currently unemployed and looking for a job?: No Are you interested in more education?: No Please select the resources that you would like help with: None Currently or been in a relationship where the following occur: No concerns reported THRIVE Score: 0 AUDIT C Alcohol Use Questionnaire (AUDIT-C) 1. How often do you have a drink containing alcohol?: Monthly or less 2. How many drinks containing alcohol do you have on a typical day when you are drinking?: 1 or 2 3. How often do you have six or more drinks on one occasion?: Never Total Score: 1 Score Reviewed/Action Taken: No GEORGES-7 AMB Questionnaire GEORGES-7 Date GEORGES - 7 assessed: 12/13/23 Feeling nervous, anxious, or on edge: 1 = Several days Not being able to stop or control worryin = Not at all Worrying too much about different things: 0 = Not at all Trouble relaxin = Not at all Being so restless that it is hard to sit still: 0 = Not at all Becoming easily annoyed or irritable: 0 = Not at all Feeling afraid as if something awful might happen: 0 = Not at all Total GEORGES-7 score (0-4 normal; 5-9 mild; 10-14 moderate; 15-21 severe): 1 Source: Developed by Drs. Cm Jarquin, Pamela Hood, Fuad Arriola and colleagues, with an educational patricia from [employer]. GEORGES-7 Assessment Billing GEORGES-7 Assessment Tool: GEORGES-7 Assessment 17319 Review of Systems Const All systems reviewed & are unremarkable except as noted in HPI and below Card Denies chest pain at rest, Denies chest pain with activity, Denies edema, Denies irregular heart rhythm, Denies claudication, Denies dyspnea, Denies dyspnea on exertion, Denies orthopnea, Denies paroxysmal nocturnal dyspnea and Denies slow heart rate Resp Denies cough, Denies dyspnea and Denies dyspnea on exertion Physical exam (Primary Care) Vital Signs: Last Vital Signs BP 130/80 12/13/23 14:23 BMI result Body Mass Index 32.6 BMI Assessment/Plan discussion: High BMI High, discussed plan: lifestyle, weight reduction, dietary and physical activity Tobacco/Smoking Status: Tobacco use Status Tobacco use date assessed 12/13/23 12/13/23 14:29 Patient Tobacco Use Status Never used Tobacco 12/13/23 14:29 e-Cigarette/Vaping Use Never Used 12/13/23 14:29 PHQ-9: PHQ-9 Score PHQ-9: Total score 0 12/13/23 14:43 Depression Screening Interpretation: Negative Thrive Assessment: Date of Thrive Assessment Date Thrive assessed 12/13/23 12/13/23 14:29 Currently or been in a relationship where the following occur: No concerns reported HENOR Head: Yes normal to inspection, Yes normocephalic and Yes atraumatic Ears: external ears normal Eyes General: appearance normal, both eyes and all related structures Eyelids: Yes eyelids normal Conjunctivae: conjunctivae normal Neck Neck: Yes normal visual inspection and Yes supple Resp Effort & Inspection: normal respiratory effort Auscultation: clear to auscultation bilaterally Cardio Jugular venous distension: no JVD Rate: regular rate Rhythm: regular rhythm Heart sounds: S1 normal heart sound present and S2 normal heart sound present GI Inspection: Yes normal to inspection Palpation (GI): Soft to palpation and nontender Auscultation: normal bowel sounds Skin General skin exam: no rashes or lesions noted Neuro General: no focal motor deficits Extrem General: Yes full ROM Psych Appearance: grossly normal Assessment and Plan Assessment & Plan (1) Physical exam: Code(s): Z00.00 - Encounter for general adult medical examination without abnormal findings Plan: Repeat in a year. Orders: Orders Lipid Panel Today Z00.00 - Encounter for general adult medical examination without abnormal findings Comprehensive [place]. Panel Fast Today Z00.00 - Encounter for general adult medical examination without abnormal findings Coding Level of Care Code Est Pt Prev Care 40-64y(59902) Diagnoses Physical exam Z00.00 Additional Codes GEORGES-7 Assessment Billing - GEORGES-7 Assessment Tool: GEORGES-7 Assessment 51517 ([id number]) Time Spent (min) 30
[2023-12-13 14:23] VITALS: BP 130/80; BMI 32.6
== END 2023-12-13 14:54 | disposition home or self-care (01) ==
PROVIDERS: PCP Internal Medicine; Visit Provider Internal Medicine
DX: Z00.00 Encounter for general adult medical examination without abnormal findings (principal)
CPT/HCPCS: 99396

== ENCOUNTER 2023-12-15 14:12 | Outpatient (REF) | payer BC, SELFPAY | END 2023-12-15 14:13 | disposition home or self-care (01) | LOC: HO.LNP 14:12 | PROVIDERS: PCP Internal Medicine; Visit Provider Advanced Practice Midwife | DX: Z13.89 Encounter for screening for other disorder (principal) ==

== ENCOUNTER 2023-12-15 14:12 | Outpatient (AMB) | payer BC, SELFPAY ==
--- NOTE | 2023-12-15 14:15 | MHC.OFFVIS ---
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 Doing well with no concerns: some pelvic pain and bleeding with the Mirena. Also has issues w/sleep. She tries to eat healthy and stays active with exercise. Regular monthly menses. Currently is sexually active. She denies vaginal itching and irritation. STI screening offered; she accepts. Denies family history of breast, ovarian or colon cancer. Last pap smear 2020, negative. Mammogram: 2022. [facility] Medical History Migraines Mild recurrent major depression GEORGES (generalized anxiety disorder) Class 2 obesity with body mass index (BMI) of 36.0 to 36.9 in adult Tension headache Urge and stress incontinence Depression with anxiety Allergic rhinitis Surgical History History of surgery History of gastric surgery History of laparoscopic cholecystectomy History of tubal ligation Family History Father Hypertension Overweight Stroke Enlarged heart Diabetes mellitus CKD stage 3 due to type 2 diabetes mellitus Mother Osteoporosis Hemangiopericytic meningioma Maternal Grandmother Stroke Diabetes mellitus Paternal Grandfather Prostate cancer Family/Other Substance use disorder Mental health disorder Social History Household Members: Children Housing: Apartment Alcohol intake: current Alcohol intake frequency: a few times a month Patient Tobacco Use Status: Never used Tobacco e-Cigarette/Vaping Use: Never Used Second Hand Smoke Exposure: No service: No Current occupational status: employed Current occupational exposures/hazards: No Cognitive needs: No Hearing needs: No Vision needs: No Female Reproductive History Menstrual Age of Menarche: 14 Date of last menstrual period: 12/08/23 control method: progestin IUCD (Mirena 11/20/20) and permanent sterilization Permanent Sterilization: BTL Total pregnancies: 2 Full term: 2 Number of Living Children: 2 Date of last pap smear: 09/18/20 (neg pap and hpv) Date of Mammogram: 01/07/23 (Birad 1) Review of Systems Const All systems reviewed & are unremarkable except as noted in HPI and below Reports as per HPI Eyes Reports no additional complaints ENT Reports no additional complaints Card Reports no additional complaints Resp Reports no additional complaints GI Reports as per HPI and Reports no additional complaints Reports as per HPI Musc Reports no additional complaints Skin/Breast Reports as per HPI Neuro Reports no additional complaints Psych Reports no additional complaints Endo Reports no additional complaints Devendra/Lymph Reports no additional complaints Aller/Immun Reports no additional complaints Physical Exam Vital Signs: Last Vital Signs BP 100/60 12/15/23 14:16 BMI result Body Mass Index 32.4 Const General: cooperative, healthy appearing, no acute distress, well developed and alert Orientation/consciousness: patient oriented x3 HEENT Head: Yes normal to inspection Eyes General: appearance normal, both eyes and all related structures Neck Neck: Yes normal visual inspection Thyroid: Thyroid normal Chest Chest palpation & inspection: normal inspection of the chest and other (no puckering, dimpling, peau de orange, retraction, discharge, masses) Breast/axilla inspection: normal inspection of the breasts Breast/axilla palpation: normal palpation of the breasts Resp Effort & Inspection: normal respiratory effort GI Inspection: Yes normal to inspection Palpation (GI): Soft to palpation Rectal Exam - Female: deferred General: Yes bladder normal to palpation External Female Exam: normal external appearance and normal appearance of the urethra Speculum Exam - Vagina: normal appearance of the vagina, normal palpation and normal vaginal discharge Speculum Exam - Cervix: normal appearance of the cervix, normal palpation and Other cervical findings present (IUD strings present at the os) Bimanual exam- vagina & uterus: normal bimanual exam, normal palpation, uterine size normal, bladder normal to palpation, normal palpation and non-tender Bimanual Exam- Adnexa, other: no masses Skin General skin exam: no rashes or lesions noted Rashes: no rashes Neuro General: patient oriented x3 Cognition (Neuro): normal cognition Extrem General: Yes normal to inspection Psych Attitude: cooperative Thought process: Normal thought process present Assessment & Plan Assessment & Plan (1) Encounter for well woman exam with routine gynecological exam: Code(s): Z01.419 - Encounter for gynecological examination (general) (routine) without abnormal findings Category: Medical (2) Pelvic pain: Code(s): R10.2 - Pelvic and perineal pain Category: Medical Plan Discussed: Current recommendations for pap smears per ASCCP guidelines. Breast awareness and periodic breast exams. Maintain a healthy lifestyle including a well balanced diet and routine exercise. Use condoms for STI and prevention. Mammogram yearly. Perimenopausal changes. Follow up with primary care regarding sleep issues, counseled regarding sleep hygiene practices. Plan pelvic ultrasound and follow up in person for test results. Patient verbalizes understanding and agrees to the plan of care. She was given opportunity to ask questions and all questions were answered to the best of my ability. 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 This note is constructed using voice recognition software. While every effort has been made to ensure accuracy, director of assessing errors may have been included. Orders: Orders US pelvic and transvaginal Today R10.2 - Pelvic and perineal pain, Z30.431 - Encounter for routine checking of intrauterine contraceptive device CT NG by PCR Today N92.1 - Excessive and frequent menstruation with irregular cycle, R10.2 - Pelvic and perineal pain, Z97.5 - Presence of (intrauterine) contraceptive device Bacterial Vaginosis Panel Today N92.1 - Excessive and frequent menstruation with irregular cycle, R10.2 - Pelvic and perineal pain, Z97.5 - Presence of (intrauterine) contraceptive device Coding Level of Care Code Est Pt Prev Care 40-64y(18387) Diagnoses Encounter for well woman exam with routine gynecological exam Z01.419 Pelvic pain R10.2
[2023-12-15 14:16] VITALS: BP 100/60; BMI 32.4
== END 2023-12-15 14:53 | disposition home or self-care (01) ==
PROVIDERS: PCP Internal Medicine; Visit Provider Advanced Practice Midwife
DX: Z01.419 Encounter for gynecological examination (general) (routine) without abnormal findings (principal); R10.2 Pelvic and perineal pain
CPT/HCPCS: 99396

== ENCOUNTER 2023-12-15 14:49 | Outpatient (REF) | payer BC, SELFPAY ==
[2023-12-16 09:48] LABS: Bacterial Vaginosis PCR POSITIVE (Negative); Candida Group PCR NOT DETECTED (Not Detect); Candida glab krusei PCR NOT DETECTED (Not Detect); Trichomonas vaginalis PCR NOT DETECTED (Not Detect)
[2023-12-16 10:00] LABS: CT PCR NOT DETECTED (Not Detect.); NG PCR NOT DETECTED (Not Detect.)
== END 2023-12-15 14:50 | disposition home or self-care (01) ==
LOC: HO.LAB 14:49
PROVIDERS: Visit Provider Advanced Practice Midwife
DX: R10.2 Pelvic and perineal pain (principal); N92.1 Excessive and frequent menstruation with irregular cycle; Z97.5 Presence of (intrauterine) contraceptive device
CPT/HCPCS: 0352U; 87491; 87591

== ENCOUNTER 2023-12-22 11:24 | Outpatient (REF) | payer BC, SELFPAY ==
--- NOTE | ~2023-12-22 | US_ITS ---
EXAMINATION: US PELVIS CLINICAL INFORMATION: Pelvic and perineal pain. COMPARISON: Pelvic ultrasound from 09/29/2020. TECHNIQUE: Ultrasound of the pelvis is performed using both transabdominal and transvaginal transducers along with Doppler. Transvaginal imaging is performed due to inadequate visualization transabdominally. FINDINGS: The anteflexed, anteverted uterus measures approximately 9 x 4.5 x 5.5 cm (cervix to fundus x x AP transverse dimension). The myometrial echotexture is normal. No leiomyomas are seen on today's examination. The endometrium measures up to 0.4 cm AP. No endometrial fluid. The contraceptive device appears to be rotated with the body of the device in more horizontal orientation as shown on a 3D transverse image (image 102). The left ovary is not identified. The right ovary is 3 x 2.6 x 2.7 cm, 11 mL. No ovarian mass or torsion. The largest follicle within the right ovary is 2.3 cm. No pelvic free fluid. US/US pelvic and transvaginal IMPRESSION: * No acute sonographic abnormalities in the pelvis. No pelvic free fluid. * The IUD appears to be rotated and penetrating into the uterine myometrium.
== END 2023-12-22 11:25 | disposition home or self-care (01) ==
LOC: HO.US 11:24
PROVIDERS: PCP Internal Medicine; Visit Provider Advanced Practice Midwife
DX: Z30.433 Encounter for removal and reinsertion of intrauterine contraceptive device (principal); R10.2 Pelvic and perineal pain
CPT/HCPCS: 58300; 58301; 76830; 76856; 81025; J7298

== ENCOUNTER 2023-12-22 15:20 | Outpatient (AMB) | payer BC, SELFPAY ==
--- NOTE | 2023-12-22 15:30 | MHC.OFFVIS ---
Vital Signs 12/22/23 15:38 Height 5 ft 3 in Weight 182 lb 15.739 oz BMI 32.4 Intake Visit Reasons: iud removal and insertion per dr. garcia Allergies No Known Allergies Allergy (Unknown, Verified 12/15/23 14:16) UNKNOWN HPI Comments Details: Presenting after ultrasound showed multiple position of IUD, for Mirena IUD removal and your Mirena IUD insertion [facility]LY [facility] Medical History Migraines Mild recurrent major depression GEORGES (generalized anxiety disorder) Class 2 obesity with body mass index (BMI) of 36.0 to 36.9 in adult Tension headache Urge and stress incontinence Depression with anxiety Allergic rhinitis Surgical History History of surgery History of gastric surgery History of laparoscopic cholecystectomy History of tubal ligation Family History Father Hypertension Overweight Stroke Enlarged heart Diabetes mellitus CKD stage 3 due to type 2 diabetes mellitus Mother Osteoporosis Hemangiopericytic meningioma Maternal Grandmother Stroke Diabetes mellitus Paternal Grandfather Prostate cancer Family/Other Substance use disorder Mental health disorder Social History Household Members: Children Housing: Apartment Alcohol intake: current Alcohol intake frequency: a few times a month Patient Tobacco Use Status: Never used Tobacco e-Cigarette/Vaping Use: Never Used Second Hand Smoke Exposure: No service: No Current occupational status: employed Current occupational exposures/hazards: No Cognitive needs: No Hearing needs: No Vision needs: No Female Reproductive History Menstrual Age of Menarche: 14 Review of Systems Const All systems reviewed & are unremarkable except as noted in HPI and below Physical Exam Vital Signs: BMI result Body Mass Index 32.4 General: Yes no CVA tenderness External Female Exam: normal external appearance and normal appearance of the urethra Speculum Exam - Vagina: normal appearance of the vagina, normal palpation, no lesions and no masses Speculum Exam - Cervix: normal appearance of the cervix, normal palpation, no lesions, no masses and nontender Bimanual exam- vagina & uterus: normal bimanual exam, normal palpation, uterine size normal, normal palpation, uterine shape normal, No Cervical tenderness present and non-tender Bimanual Exam- Adnexa, other: normal adnexae Back/Spine/Pelvis Back: no CVA tenderness Office Procedures IUD Insert/Removal Details Details: The patient is presenting for IUD removal and IUD reinsertion. Her last menstrual period was within the last 5 days, Urine test was done in the office and was negative; All the contraindications were excluded. The following possible complications were discussed with the patient: Intrauterine , Ectopic , Sepsis, Pelvic Infection, Irregular Bleeding and Amenorrhea, Perforation, Expulsion, Ovarian Cysts, Breast Cancer. The following adverse effects were discussed with the patient: alteration of menstrual bleeding pattern, including: unscheduled uterine bleeding decreased uterine bleeding increased scheduled uterine bleeding female genital tract bleeding ,amenorrhea , genital discharge , vulvovaginitis , breast pain , benign ovarian cyst and associated complications , dysmenorrhea , Gastrointestinal disorders abdominal/pelvic pain, headache/migraine , back pain , acne , depression Alternative options were discussed with the patient including but not limited: control pills, patch, NuvaRing, Depo-medroxyprogesterone acetate, Nexplanon, copper IUD, sterilization, vasectomy, others The procedure was explained in detail to patient , at the end patient signed the informed consent obtained. Alternative options were discussed with the patient The patient signed the consent and agreed with the plan; all questions answered. Urine test was done in the office and was negative Preop dx: Requesting IUD removal and Reinsertion Op: IUD removal and Mirena insertion Post op dx: same EBL= 10 cc Procedure: The patient was put in the dorsal lithotomy position a speculum was inserted in the vagina the IUD thread identified. Using a Lizzie clamp the thread was grasped and the IUD pulled out with no complications. A no touch technique was used throughout the procedure. A speculum was placed into vagina and cervix was cleaned with betadine). A tenaculum was placed. A plastic sound was advanced through the external and internal os until it reached the fundus of the uterus, the depth was 8 cm. The sound was then withdrawn. The IUD was loaded in a sterile manner and advanced into position. The string was visualized and cut to 3 cm. Tenaculum site hemostatic. All instruments removed from vagina. Patient tolerated the procedure well. NO complications were noted. Patient was instructed to call for fever over 100.4, significant pain unrelieved by Motrin, IUD expulsion, heavy bleeding, or abnormal discharge. In addition, the following clinical considerations were discussed with the patient to call for removal: A stroke or heart attack ,Very severe or migraine headaches ,Unexplained fever ,Yellowing of the skin or whites of the eyes, as these may be signs of serious liver problems , or suspected , Pelvic pain or pain during sex ,HIV positive seroconversion in herself or her partner , Possible exposure to sexually transmitted infections Unusual vaginal discharge or genital sores , severe vaginal bleeding or bleeding that lasts a long time, or if she misses a menstrual period, Inability to feel Mirena's threads Counseled the patient that the IUD does not protect against STI's, recommended use of condoms for the first 7 days post insertion and explained to the patient that condoms are recommended for patients at risk for sexually transmitted infections. Follow up appointment made for 4 weeks following insertion. Date of removal in no more than five years for DUB treatment and 8 years for contraception from today?s date was d/w patient. This note was generated with a voice recognition program. Some errors may have been overlooked during the review of this note. Sometimes these errors may affect the content or meaning of a given sentence. 40509-FDK Insertion 81308-VDA Removal Procedure code (CPT) selection complete Office Meds Mirena 21 mcg/24 hr (up to 8 years) 52 mg intrauterine device Performing Provider: Alvarez Garcia MD [place] [facility] [place] [facility] Documented (not given) by: Alvarez Garcia MD on 12/22/23 15:47 Dose Route Admin Location Dispensed Lot Number Expiration Date [facility] [place] Manager Legal 1 device intrauterine ea Assessment & Plan Assessment & Plan (1) Malpositioned IUD: Code(s): T83.32XA - Displacement of intrauterine contraceptive device, initial encounter Category: Medical Plan: Discussed with the patient the malposition of the IUD by ultrasound, recommended removal and reinsertion. (2) Remove/insert IUD: Code(s): Z30.433 - Encounter for removal and reinsertion of intrauterine contraceptive device Category: Medical Plan: UPT done in the office was negative. Mirena IUD removed and new IUD reinserted. See procedure note Orders: Orders AMB IUD Insertion/Removal - Practice Supplied Today Z30.433 - Encounter for removal and reinsertion of intrauterine contraceptive device Medications: New Mirena (levonorgestrel) 1 device intrauterine ONCE 1 ea 0RF IUD insertion NS Z30.433 - Encounter for removal and reinsertion of intrauterine contraceptive device Coding Level of Care Code Procedure Only Diagnoses Malpositioned IUD T83.32XA Remove/insert IUD Z30.433 CPT Codes Details - CPT: 81651-WPL Insertion ([id number]) Details - CPT: 63277-BYB Removal ([id number])
[2023-12-22 15:38] VITALS: BMI 32.4
== END 2023-12-22 15:49 | disposition home or self-care (01) ==
LOC: HO.HWS 15:20
PROVIDERS: PCP Internal Medicine; Visit Provider Obstetrics & Gynecology
DX: Z30.433 Encounter for removal and reinsertion of intrauterine contraceptive device (principal); Z32.02 Encounter for pregnancy test, result negative; R10.2 Pelvic and perineal pain; T83.32XA Displacement of intrauterine contraceptive device, initial encounter
CPT/HCPCS: 58300; 58301

== ENCOUNTER 2023-12-22 16:14 | Outpatient (REF) | payer BC, SELFPAY ==
[2023-12-22 18:15] LABS: CT PCR NOT DETECTED (Not Detect.); NG PCR NOT DETECTED (Not Detect.)
== END 2023-12-22 16:15 | disposition home or self-care (01) ==
LOC: HO.LNP 16:14
PROVIDERS: Visit Provider Obstetrics & Gynecology
DX: R10.2 Pelvic and perineal pain (principal)
CPT/HCPCS: 87491; 87591

== ENCOUNTER 2024-01-16 08:23 | Outpatient (REF) | payer BC, SELFPAY ==
--- NOTE | ~2024-01-16 | MM_ITS ---
EXAMINATION: MM SCREENING DIGITAL BREAST TOMOSYNTHESIS, BILATERAL CLINICAL INFORMATION: Screening. Asymptomatic. COMPARISON: Mammography: This study is compared with prior exams dating back to 2019. TECHNIQUE: Digital breast tomosynthesis is performed in both the craniocaudal and mediolateral oblique views along with computer-aided detection (CAD). Synthesized 2D images are generated from the tomosynthesis. FINDINGS: The breasts are heterogeneously dense, which may obscure small masses (ACR BI-RADS breast composition Category c). There are no significant masses, abnormal calcifications, or other abnormalities. MM/MM tomosynthesis screening BI IMPRESSION: No mammographic evidence of malignancy. ASSESSMENT: BI-RADS BI-RADS 1 - Negative RECOMMENDATION: Routine annual mammography screening. 1 year F/U This examination should not preclude the clinical evaluation of a suspicious palpable abnormality. This patient's information was entered into a reminder system with a target due date for their next mammogram. Electronically signed by: Kina Pham MD 02/13/2024 09:53 AM EDT
[2024-01-16 09:12] LABS: Alanine Aminotransferase 7 U/L (0-31); Alkaline Phosphatase 82 U/L (39-117); Anion Gap 10 (12-20); Aspartate Amino Transferase 13 U/L (5-31); Bilirubin Total 0.7 mg/dL (0.0-1.0); Blood Urea Nitrogen 12 mg/dL (9-16); Calcium 9.2 mg/dL (8.4-10.2); Carbon Dioxide 27 mmol/L (22-29); Chloride 106 mmol/L (96-108); Cholesterol 172 mg/dL (<200); Estimated Glomerular Filt Rate > 60; Glucose Fasting 90 mg/dL (60-99); HDL Cholesterol 36 mg/dL (>40); LDL Cholesterol Calculated 121 mg/dL (<100); Potassium 3.7 mmol/L (3.3-5.1); Sodium 139 mmol/L (135-145); Total Protein 7.2 g/dL (6.5-8.0); Triglycerides 75 mg/dL (<150)
== END 2024-01-16 08:24 | disposition home or self-care (01) ==
LOC: HO.MAMMO 08:23
PROVIDERS: PCP Internal Medicine; Visit Provider Internal Medicine
DX: Z00.00 Encounter for general adult medical examination without abnormal findings (principal); Z12.31 Encounter for screening mammogram for malignant neoplasm of breast
CPT/HCPCS: 36415; 77063; 77067; 80053; 80061

== ENCOUNTER → 2024-01-16 10:00 | Outpatient (BNV) | payer BC, SELFPAY | PROVIDERS: PCP Internal Medicine; Visit Provider Radiology Diagnostic Radiology | DX: Z12.31 Encounter for screening mammogram for malignant neoplasm of breast (principal) | CPT/HCPCS: 77063; 77067 ==

== ENCOUNTER 2024-02-16 14:32 | Outpatient (AMB) | payer BC, SELFPAY ==
--- NOTE | 2024-02-16 14:33 | A.OFFVIS_ITS ---
Vital Signs 02/16/24 14:38 Height 5 ft 3 in Weight 182 lb 15.739 oz BMI 32.4 Intake Visit Reasons: IUD Check Machine Sorter Required: No Information Interpreted: non-clinical & clinical House Registry Rn: House Registry Rn Present (Brittany LIZAMA) Accompanied by: Self / Same As Patient Allergies No Known Allergies Allergy (Unknown, Verified 02/16/24 14:39) UNKNOWN Is last menstrual period known: No (mirena) HPI Comments Details: The patient is presenting for IUD check after 1 st period following IUD insertion. The patient has no complaints periods are normal, not painful, and flow is very light. [facility] Medical History Migraines Mild recurrent major depression GEORGES (generalized anxiety disorder) Class 2 obesity with body mass index (BMI) of 36.0 to 36.9 in adult Tension headache Urge and stress incontinence Depression with anxiety Allergic rhinitis Surgical History History of surgery History of gastric surgery History of laparoscopic cholecystectomy History of tubal ligation Family History Father Hypertension Overweight Stroke Enlarged heart Diabetes mellitus CKD stage 3 due to type 2 diabetes mellitus Mother Osteoporosis Hemangiopericytic meningioma Maternal Grandmother Stroke Diabetes mellitus Paternal Grandfather Prostate cancer Family/Other Substance use disorder Mental health disorder Social History Household Members: Children Housing: Apartment Alcohol intake: current Alcohol intake frequency: a few times a month Patient Tobacco Use Status: Never used Tobacco e-Cigarette/Vaping Use: Never Used Second Hand Smoke Exposure: No service: No Current occupational status: employed Current occupational exposures/hazards: No Cognitive needs: No Hearing needs: No Vision needs: No Female Reproductive History Menstrual Age of Menarche: 14 control method: progestin IUCD and permanent sterilization Review of Systems Const All systems reviewed & are unremarkable except as noted in HPI and below Physical Exam Vital Signs: BMI result Body Mass Index 32.4 General: Yes no CVA tenderness External Female Exam: normal external appearance and normal appearance of the urethra Speculum Exam - Vagina: normal appearance of the vagina, normal palpation, no lesions and no masses Speculum Exam - Cervix: normal appearance of the cervix, normal palpation, no lesions, no masses, nontender and Other cervical findings present (IUD thread in place) Bimanual exam- vagina & uterus: normal bimanual exam, normal palpation, uterine size normal, normal palpation, uterine shape normal, No Cervical tenderness present and non-tender Bimanual Exam- Adnexa, other: normal adnexae Back/Spine/Pelvis Back: no CVA tenderness Results AMB Test Urine AMB Test Urine Negative Last Edit by Brittany Barney CMA on 14:41 Results Reviewed Results Reviewed: Laboratory Last Values Tst Clinic Negative 02/16/24 14:41 Assessment & Plan Assessment & Plan (1) IUD check up: Code(s): Z30.431 - Encounter for routine checking of intrauterine contraceptive device Category: Medical Plan: UPT done in the office was negative. Discussed with the patient the finding on physical exam, IUD string in place, the patient was reassured. Instructions given to patient to call in case of temperature above 100.4, severe cramping/pelvic pain, abnormal discharge or abnormal uterine bleeding or if she misses her menstrual cycle. Otherwise follow-up at her annual exam appointment. All questions answered, the patient verbalized understanding. Orders: Orders AMB HCG Urine Test Today Z32.02 - Encounter for test, result negative Coding Level of Care Code Est Pt Level 3 (19717) Diagnoses IUD check up Z30.431
[2024-02-16 14:38] VITALS: BMI 32.4
== END 2024-02-16 14:47 | disposition home or self-care (01) ==
PROVIDERS: PCP Internal Medicine; Visit Provider Obstetrics & Gynecology
DX: Z30.431 Encounter for routine checking of intrauterine contraceptive device (principal); Z32.02 Encounter for pregnancy test, result negative
CPT/HCPCS: 99213

== ENCOUNTER → 2024-02-16 14:32 | Outpatient (BNVA) | payer BC, SELFPAY | PROVIDERS: PCP Internal Medicine; Visit Provider Obstetrics & Gynecology | DX: Z30.431 Encounter for routine checking of intrauterine contraceptive device (principal) | CPT/HCPCS: 81025 ==

== ENCOUNTER 2024-04-20 11:04 | Outpatient (AMB) | payer BC, SELFPAY ==
--- NOTE | 2024-04-20 11:25 | A.OFFVIS_ITS ---
Intake Visit Reasons: IUD discomfort Soap Drier Tender: Soap Drier Tender Present (Elisabeth) Accompanied by: Self / Same As Patient Allergies No Known Allergies Allergy (Unknown, Verified 04/20/24 11:26) UNKNOWN HPI Comments Details: Presenting complaining pelvic pain over the last 2 weeks associated with vaginal discharge no foul odor or itching no urinary or GI symptoms, no fever or chills PFSH Medical History Migraines Mild recurrent major depression GEORGES (generalized anxiety disorder) Class 2 obesity with body mass index (BMI) of 36.0 to 36.9 in adult Tension headache Urge and stress incontinence Depression with anxiety Allergic rhinitis Surgical History History of surgery History of gastric surgery History of laparoscopic cholecystectomy History of tubal ligation Family History Father Hypertension Overweight Stroke Enlarged heart Diabetes mellitus CKD stage 3 due to type 2 diabetes mellitus Mother Osteoporosis Hemangiopericytic meningioma Maternal Grandmother Stroke Diabetes mellitus Paternal Grandfather Prostate cancer Family/Other Substance use disorder Mental health disorder Social History Household Members: Children Housing: Apartment Alcohol intake: current Alcohol intake frequency: a few times a month Patient Tobacco Use Status: Never used Tobacco e-Cigarette/Vaping Use: Never Used Second Hand Smoke Exposure: No service: No Current occupational status: employed Current occupational exposures/hazards: No Cognitive needs: No Hearing needs: No Vision needs: No Female Reproductive History Menstrual Age of Menarche: 14 control method: progestin IUCD (Mirena) Review of Systems Const All systems reviewed & are unremarkable except as noted in HPI and below Physical Exam General: Yes no CVA tenderness External Female Exam: normal external appearance and normal appearance of the urethra Speculum Exam - Vagina: normal appearance of the vagina, normal palpation, no lesions and no masses Speculum Exam - Cervix: normal appearance of the cervix, normal palpation, no lesions, no masses, nontender and Other cervical findings present (IUD thread in place) Bimanual exam- vagina & uterus: normal bimanual exam, normal palpation, uterine size normal, normal palpation, uterine shape normal, No Cervical tenderness present and non-tender Bimanual Exam- Adnexa, other: normal adnexae Back/Spine/Pelvis Back: no CVA tenderness Assessment & Plan Assessment & Plan (1) Pelvic pain: Code(s): R10.2 - Pelvic and perineal pain Category: Medical Plan: Urine dip and test done in the office were negative. GC/CT with BV panel collected. Pelvic ultrasound ordered. Instructions given the patient to call or go to emergency room in case of worsening of her pelvic pain, fever above 0.4, nausea or vomiting and to schedule an ultrasound and a 2 week follow- up appointment. All questions answered, the patient verbalized understand Orders: Orders Bacterial Vaginosis Panel Today R10.2 - Pelvic and perineal pain CT NG by PCR Today R10.2 - Pelvic and perineal pain US pelvic and transvaginal Today R10.2 - Pelvic and perineal pain Coding Level of Care Code Est Pt Level 3 (26915) Diagnoses Pelvic pain R10.2
== END 2024-04-20 11:45 | disposition home or self-care (01) ==
LOC: HO.HWS 11:04
PROVIDERS: PCP Internal Medicine; Visit Provider Obstetrics & Gynecology
DX: R10.2 Pelvic and perineal pain (principal)
CPT/HCPCS: 99213

== ENCOUNTER 2024-04-20 11:04 | Outpatient (REF) | payer BC, SELFPAY ==
[2024-04-21 05:57] LABS: CT PCR NOT DETECTED (Not Detect.); NG PCR NOT DETECTED (Not Detect.)
[2024-04-21 12:02] LABS: Bacterial Vaginosis PCR POSITIVE (Negative); Candida Group PCR NOT DETECTED (Not Detect); Candida glab krusei PCR NOT DETECTED (Not Detect); Trichomonas vaginalis PCR NOT DETECTED (Not Detect)
== END 2024-04-20 11:05 | disposition home or self-care (01) ==
LOC: HO.LNP 11:04
PROVIDERS: PCP Internal Medicine; Visit Provider Obstetrics & Gynecology
DX: R10.2 Pelvic and perineal pain (principal); Z97.5 Presence of (intrauterine) contraceptive device
CPT/HCPCS: 0352U; 87491; 87591

== ENCOUNTER 2024-04-20 11:58 | Outpatient (REF) | payer BC, SELFPAY ==
--- NOTE | ~2024-04-20 | US_ITS ---
EXAMINATION: US PELVIC AND TRANSVAGINAL CLINICAL INFORMATION: Pelvic and perineal pain. COMPARISON: Most recent pelvic ultrasound dated 12/22/2023. TECHNIQUE: Ultrasound of the pelvis is performed using both transabdominal and transvaginal transducers along with Doppler. Transvaginal imaging is performed due to inadequate visualization transabdominally. FINDINGS: UTERUS: The uterus is anteverted and measures 7.5 x 4.5 x 4.8 cm. Nabothian cysts within the cervix. The double wall endometrial thickness is 3 mm. IUD within the endometrial cavity. The uterus is smooth in contour and has normal myometrial echogenicity. No visible fibroid. ADNEXA: Both ovaries are visualized. There is normal color flow to the adnexa. There is no ovarian torsion. There is no pelvic ascites or fluid collection. Right ovary measures 2.7 x 1.8 x 2 cm. Right ovarian volume of 5.2 mL. Left ovary measures 2.9 x 2.2 x 2.2 cm. Left ovarian volume of 7.3 mL. US/US pelvic and transvaginal IMPRESSION: 1. IUD in appropriate position within the endometrial cavity. 2. Otherwise unremarkable examination. Electronically signed by: Vinnie Turner MD 04/22/2024 06:30 PM [facility]
== END 2024-04-20 11:59 | disposition home or self-care (01) ==
LOC: HO.US 11:58
PROVIDERS: PCP Internal Medicine; Visit Provider Obstetrics & Gynecology
DX: R10.2 Pelvic and perineal pain (principal)
CPT/HCPCS: 76830; 76856

== ENCOUNTER 2024-04-25 09:54 | Outpatient (AMB) | payer BC, SELFPAY ==
--- NOTE | 2024-04-25 09:56 | A.OFFPC_ITS ---
Vital Signs 04/25/24 09:57 Height 5 ft 3 in Weight 156 lb BMI 27.6 BP 112/80 Blood Pressure Location Lt brachial Position Sitting Intake Visit Reasons: Test results - Review Matrix Worker Required: No Accompanied by: Self / Same As Patient Allergies No Known Allergies Allergy (Unknown, Verified 04/25/24 10:08) UNKNOWN Medication List - Last Reconciled 04/25/24 by Darby Bishop MD levonorgestrel (Mirena) intrauterine metronidazole 500 mg PO BID 7 days tirzepatide (weight loss) (Zepbound) 10 mg subcut QWEEK Tobacco use date assessed: 12/13/23 Dental Screening Dental Screen Date: 12/13/23 HPI HPI Comments History of Present Illness Details The patient is a 49-year-old female presenting with concerns regarding weight management and vaginal bleeding. The patient has a history of obesity with a current BMI of 27.6, indicative of being overweight but improved compared to past measurements. The patient is receiving treatment with ZepBound (semaglutide) for weight management, with current dosage adjustments being discussed to accommodate her weight loss goals. She has experienced stomach discomfort following injections but denies significant gastrointestinal side effects. Her weight reduction efforts are ongoing, and she expresses a goal weight of 140 pounds, although current weight is unspecified in the discussion. Additionally, the patient reports recurrent episodes of bacterial vaginosis, which she associates with repeated bacterial infections. Past evaluations have indicated vaginal dryness, which may contribute to post-coital bleeding and discomfort. The patient utilizes [place] Jelly but reports inadequate relief and occasional worsening symptoms. Estrogen cream was mentioned as an alternative. An ultrasound confirmed that her IUD was positioned correctly, with other assessments showing no significant abnormalities except for potential signs of vaginal atrophy. The patient also recounts a past episode of rhabdomyolysis in 2021 after weight lifting, requiring hospitalization due to elevated muscle enzyme levels and compromised kidney function. Her current lifestyle includes regular exercise aimed at muscle build and tone, paralleled with protein supplementation. [facility], [facility] Medical History (Updated 04/26/24 @ 09:09 by Darby Bishop MD) Migraines Mild recurrent major depression GEORGES (generalized anxiety disorder) Class 2 obesity with body mass index (BMI) of 36.0 to 36.9 in adult Tension headache Urge and stress incontinence Depression with anxiety Allergic rhinitis Surgical History History of surgery History of gastric surgery History of laparoscopic cholecystectomy History of tubal ligation Family History Father Hypertension Overweight Stroke Enlarged heart Diabetes mellitus CKD stage 3 due to type 2 diabetes mellitus Mother Osteoporosis Hemangiopericytic meningioma Maternal Grandmother Stroke Diabetes mellitus Paternal Grandfather Prostate cancer Family/Other Substance use disorder Mental health disorder Social History Household Members: Children Housing: Apartment Alcohol intake: current Alcohol intake frequency: a few times a month Patient Tobacco Use Status: Never used Tobacco e-Cigarette/Vaping Use: Never Used Second Hand Smoke Exposure: No service: No Current occupational status: employed Current occupational exposures/hazards: No Cognitive needs: No Hearing needs: No Vision needs: No Female Reproductive History Menstrual Age of Menarche: 14 Questionnaire Thrive Questionnaire Date Thrive assessed: 12/13/23 GEORGES-7 AMB Questionnaire GEORGES-7 Date GEORGES - 7 assessed: 12/13/23 Source: Developed by Drs. Cm Jarquin, Pamela Hood, Fuad Arriola and colleagues, with an educational patricia from [employer]. Review of Systems Const All systems reviewed & are unremarkable except as noted in HPI and below Card Denies chest pain at rest, Denies chest pain with activity, Denies edema, Denies irregular heart rhythm, Denies claudication, Denies dyspnea, Denies dyspnea on exertion, Denies orthopnea, Denies paroxysmal nocturnal dyspnea and Denies slow heart rate Resp Denies cough, Denies dyspnea and Denies dyspnea on exertion Musc Denies abnormal gait, Denies atrophy, Denies deformity and Denies limited range of motion Neuro Denies abnormal gait and Denies lack of coordination Physical exam (Primary Care) Vital Signs: Last Vital Signs BP 112/80 04/25/24 09:57 BMI result Body Mass Index 27.6 BMI Assessment/Plan discussion: High BMI High, discussed plan: lifestyle, weight reduction, dietary and physical activity Tobacco/Smoking Status: Tobacco use Status Tobacco use date assessed 12/13/23 04/25/24 10:01 Patient Tobacco Use Status Never used Tobacco 04/25/24 10:01 e-Cigarette/Vaping Use Never Used 04/25/24 10:01 Thrive Assessment: Date of Thrive Assessment Date Thrive assessed 12/13/23 04/25/24 10:01 Resp Effort & Inspection: normal respiratory effort Auscultation: clear to auscultation bilaterally Cardio Jugular venous distension: no JVD Rate: regular rate Rhythm: regular rhythm Heart sounds: S1 normal heart sound present and S2 normal heart sound present Extrem General: Yes full ROM Office Procedures Flu Questionnaire Does the patient have a severe egg allergy?: No Immunizations Fluarix Triv [id number] (PF) 45 mcg (15 mcg x 3)/0.5 mL IM syringe Performing Provider: Darby Bishop MD Performing Location[facility] [place] [facility] Documented (not given) by: DL Elaine on 04/25/24 10:18 Reason Not Given: Patient Refused Coding Level of Care Code Est Pt Level 4 (46354) Complex EM visit Add On G2211 Diagnoses Bacterial vaginosis N76.0; B96.89 Postcoital bleeding N93.0 Pelvic pain R10.2 Overweight (BMI 25.0-29.9) E66.3 Time Spent (min) 20 Assessment & Plan Assessment & Plan (1) Bacterial vaginosis: Code(s): N76.0 - Acute vaginitis; B96.89 - Other specified bacterial agents as the cause of diseases classified elsewhere Category: Medical (2) Postcoital bleeding: Code(s): N93.0 - Postcoital and contact bleeding Category: Medical (3) Pelvic pain: Code(s): R10.2 - Pelvic and perineal pain Category: Medical (4) Overweight (BMI 25.0-29.9): Code(s): E66.3 - Overweight Category: Medical Plan - Obesity: Continue ZepBound therapy, increasing dosage with monitoring for gastrointestinal side effects. Encourage regular exercise and nutritional support to manage weight effectively. - Vaginal Atrophy: Consider the trial of estrogen cream to manage symptoms. Continue current use of KY Jelly as needed. - Bacterial Vaginosis: Discuss potential influence of probiotics, and continue metronidazole treatment if needed. - History of Rhabdomyolysis: Advise maintaining adequate hydration, regular monitoring of muscle symptoms, and moderated exercise intensity. Patient was informed and verbally consented to the use of an ambient scribe for clinic note documentation during this visit. During the visit, I discussed with the patient the management of her obesity, including the possibility of adjusting her ZepBound dosage to 10 mg weekly. We also agreed to continue her exercise and dietary plans for effective weight management. I explained the benefits and potential side effects of estrogen cream for her vaginal atrophy symptoms, emphasizing the importance of monitoring any bleeding or discomfort. We also reviewed her past rhabdomyolysis incident and agreed to maintain adequate hydration and moderated weight lifting to avoid recurring issues. She is advised to contact gynecology for persistent post- coital bleeding and discuss further management of her vaginal health. Orders: Orders Influenza [id number] Immunization 04/25/24 Z23 - Encounter for immunization Patient Instructions: - Continue with current ZepBound injection routine, consider dosage increase if advised. - Maintain regular exercise regimen and healthy dietary habits. - Use [place] Jelly to manage vaginal dryness; consider discussing estrogen cream with gynecology. - Monitor for hydration during workouts and moderate intensity to prevent muscle injury. - Follow-up as needed for persistent vaginal symptoms and current weight management progress.
[2024-04-25 09:57] VITALS: BP 112/80; BMI 27.6
== END 2024-04-25 10:24 | disposition home or self-care (01) ==
PROVIDERS: PCP Internal Medicine; Visit Provider Internal Medicine
DX: Z23 Encounter for immunization (principal)

== ENCOUNTER → 2024-04-25 09:54 | Outpatient (BNVA) | payer BC, SELFPAY | PROVIDERS: PCP Internal Medicine; Visit Provider Internal Medicine | DX: N76.0 Acute vaginitis (principal); B96.89 Other specified bacterial agents as the cause of diseases classified elsewhere; N93.0 Postcoital and contact bleeding; R10.2 Pelvic and perineal pain; E66.3 Overweight; Z68.27 Body mass index [BMI] 27.0-27.9, adult; Z28.21 Immunization not carried out because of patient refusal | CPT/HCPCS: 90471 ==

== ENCOUNTER 2024-05-03 13:40 | Outpatient (REF) | payer BC, SELFPAY | END 2024-05-03 13:41 | disposition home or self-care (01) | LOC: HO.LNP 13:40 | PROVIDERS: PCP Internal Medicine; Visit Provider Obstetrics & Gynecology | DX: N93.0 Postcoital and contact bleeding (principal); R10.2 Pelvic and perineal pain | CPT/HCPCS: 58100; 81025; 88305 ==

== ENCOUNTER 2024-05-03 13:40 | Outpatient (AMB) | payer BC, SELFPAY ==
[2024-05-03 13:44] VITALS: BP 120/78
--- NOTE | 2024-05-03 13:44 | MHC.OFFVIS ---
Vital Signs 05/03/24 13:44 BP 120/78 Intake Visit Reasons: ultrasound results Audio Recording Engineer: Audio Recording Engineer Present (Elisabeth) Accompanied by: Self / Same As Patient Allergies No Known Allergies Allergy (Unknown, Verified 05/03/24 13:45) UNKNOWN HPI Comments Details: Presenting for follow-up regarding her pelvic pain. The patient is doing well that complaining of postcoital bleeding, she completed the course of Flagyl for positive Gardnerella The following workup was done so far: GC/CT negative. Last visit urine test was negative. Last visit urine dip was negative. Pelvic ultrasound showed the following: IMPRESSION: 1. IUD in appropriate position within the endometrial cavity. 2. Otherwise unremarkable examination Last co testing in 2020 was negative [facility] Medical History Migraines Mild recurrent major depression GEORGES (generalized anxiety disorder) Class 2 obesity with body mass index (BMI) of 36.0 to 36.9 in adult Tension headache Urge and stress incontinence Depression with anxiety Allergic rhinitis Surgical History History of surgery History of gastric surgery History of laparoscopic cholecystectomy History of tubal ligation Family History Father Hypertension Overweight Stroke Enlarged heart Diabetes mellitus CKD stage 3 due to type 2 diabetes mellitus Mother Osteoporosis Hemangiopericytic meningioma Maternal Grandmother Stroke Diabetes mellitus Paternal Grandfather Prostate cancer Family/Other Substance use disorder Mental health disorder Social History Household Members: Children Housing: Apartment Alcohol intake: current Alcohol intake frequency: a few times a month Patient Tobacco Use Status: Never used Tobacco e-Cigarette/Vaping Use: Never Used Second Hand Smoke Exposure: No service: No Current occupational status: employed Current occupational exposures/hazards: No Cognitive needs: No Hearing needs: No Vision needs: No Female Reproductive History Menstrual Age of Menarche: 14 Review of Systems Const All systems reviewed & are unremarkable except as noted in HPI and below Reports as per HPI and Reports no additional complaints GI Reports no additional complaints Reports no additional complaints Physical Exam Vital Signs: Last Vital Signs BP 120/78 05/03/24 13:44 Office Procedures Endometrial Biopsy Details: The patient was counseled regarding the indication and benefits of endometrial sampling to rule out endometrial pathology including not limited to endometrial hyperplasia or endometrial cancer and others; The alternatives (Either do nothing vs. hysteroscopy D&C) & the risks were discussed with the patient including but not limited: pain, uterine perforation, bleeding, infection, possible injury to bladder, bowel, ureter, possible need for blood transfusion with all its possible risks. The patient verbalized understanding all questions answered and signed consent. Urine test done in the office was negative The patient was placed into the dorsal lithotomy position; a speculum was inserted in the vagina. Using aseptic technique for the procedure, the cervix was cleansed with Betadine. The anterior lip of the cervix was grasped with a single tooth tenaculum. The uterus was sounded to 7 cm with a 4 mm Pipelle was used this was followed by endocervical curetting. Tissues samples were obtained and placed in formalin, in a patient labeled container and sent to the pathology department. At the end of the procedure, there was minimal bleeding noted The patient tolerated the procedure well and was discharged in good condition with the following instructions: Nothing in the vagina until the bleeding stops. No sex until the bleeding stops, to call if any of the following occurs: fever (>100.4), flu-like symptoms, abdominal pain, heavy bleeding, four smelling vaginal discharge. The patient was instructed to schedule a Follow up appointment in 2 weeks to discuss pathology results of the biopsy and treatment options. This note was generated with a voice recognition program. Some errors may have been overlooked during the review of this note. Sometimes these errors may affect the content or meaning of a given sentence. [id number] Biopsy Assessment & Plan Assessment & Plan (1) Pelvic pain: Code(s): R10.2 - Pelvic and perineal pain Category: Medical Plan: Discussed with the patient the results of the workup done including negative GC/chlamydia, urine dip, urine test and pelvic ultrasound. Differential diagnosis of tray casting machine operator causes that have not be ruled out yet include but not limited to endometriosis, pelvic adhesions or others. Recommended for the patient to see her PCP for further workup for non tray casting machine operator causes; if the all the results are negative and the patient's pelvic pain is persistent, instructions given to patient to call back for further testing. Meanwhile, instructions were given the patient to go to emergency room or call in case of fever above 100.4, heavy vaginal bleeding, persistence or worsening of her pelvic pain. All questions answered, the patient verbalized understanding. (2) Postcoital bleeding: Code(s): N93.0 - Postcoital and contact bleeding Category: Medical Plan: Discussed with the patient possible cause of postcoital bleeding including but not limited to endocervical/endo myometrial pathology including hyperplasia or malignancy, infection ruled out with negative reason GC/chlamydia, cervical dysplasia, the patient is up-to-date with her co testing since 2020, uterine/ovarian a abnormalities, pelvic ultrasound within normal with IUD in place. Recommended EMB/ECC, the patient verbalized understanding and agreed with the plan. see procedure note Orders: Orders AMB Endometrial Biopsy Today N93.0 - Postcoital and contact bleeding Coding Level of Care Code Est Pt Level 3 (14232) Procedure Only Diagnoses Pelvic pain R10.2 Postcoital bleeding N93.0 CPT Codes Endometrial Biopsy - CPT: 30031-Xdapwuqekch Biopsy ([id number])
== END 2024-05-03 14:07 | disposition home or self-care (01) ==
LOC: HO.HWS 13:40
PROVIDERS: PCP Internal Medicine; Visit Provider Obstetrics & Gynecology
DX: R10.2 Pelvic and perineal pain (principal); N93.0 Postcoital and contact bleeding; Z32.02 Encounter for pregnancy test, result negative
CPT/HCPCS: 58100; 99213

== ENCOUNTER 2024-05-10 15:19 | Outpatient (AMB) | payer BC, SELFPAY ==
--- NOTE | 2024-05-10 15:19 | MHC.OFFVIS ---
Intake Visit Reasons: EMB,ECC results Allergies No Known Allergies Allergy (Unknown, Verified 05/03/24 13:45) UNKNOWN HPI Comments Details: The patient schedule the telehealth visit after endometrial biopsy/ECC regarding postcoital bleeding. The patient has no complaints, no vaginal bleeding, no feverishness chills or abdominal pain. The following workup was done so far: GC/CT negative 09/17 co testing was negative The endometrial /ECC biopsy pathology report showed the following: A. Endometrium, biopsy: Benign endometrium with inactive glands, focal fibrin thrombi, and decidual stromal change consistent with progestin effect, and fragments of benign endocervical glandular epithelium; no atypia or carcinoma. B. Endocervix, curettage: Benign endocervical glandular mucosa and scant benign squamous epithelium [facility] Medical History Migraines Mild recurrent major depression GEORGES (generalized anxiety disorder) Class 2 obesity with body mass index (BMI) of 36.0 to 36.9 in adult Tension headache Urge and stress incontinence Depression with anxiety Allergic rhinitis Surgical History History of surgery History of gastric surgery History of laparoscopic cholecystectomy History of tubal ligation Family History Father Hypertension Overweight Stroke Enlarged heart Diabetes mellitus CKD stage 3 due to type 2 diabetes mellitus Mother Osteoporosis Hemangiopericytic meningioma Maternal Grandmother Stroke Diabetes mellitus Paternal Grandfather Prostate cancer Family/Other Substance use disorder Mental health disorder Social History Household Members: Children Housing: Apartment Alcohol intake: current Alcohol intake frequency: a few times a month Patient Tobacco Use Status: Never used Tobacco e-Cigarette/Vaping Use: Never Used Second Hand Smoke Exposure: No service: No Current occupational status: employed Current occupational exposures/hazards: No Cognitive needs: No Hearing needs: No Vision needs: No Female Reproductive History Menstrual Age of Menarche: 14 Review of Systems Const All systems reviewed & are unremarkable except as noted in HPI and below Reports as per HPI and Reports no additional complaints GI Reports no additional complaints Reports no additional complaints Telehealth Telehealth Telehealth Platform: Telephone Location of provider rendering services: practice address Location of patient: address on file Patient Identification confirmed using: Name, : Yes Telehealth method: video Patient verbally consented to treatment: Yes Patient verbally consented to billing insurance company: Yes Patient informed of any privacy concerns related to visit: Yes Assessment & Plan Assessment & Plan (1) Postcoital bleeding: Code(s): N93.0 - Postcoital and contact bleeding Category: Medical Plan: Discussed with the patient the results the pathology for EMB and ECC. The sensitivity specificity, false-positive false-negative rate in diagnose endometrial/endocervical pathology were discussed with the patient. Instructions given the patient to call in case her post coital bleeding persists. All questions answered, the patient verbalized understanding. I spent a total of 20 minutes reviewing the chart, talking to the patient via video and documenting in the medical record. Coding Level of Care Code Tele Est Pt Level 3 (28867) Diagnoses Postcoital bleeding N93.0
== END 2024-05-10 16:15 | disposition home or self-care (01) ==
LOC: HO.HWS 15:19
PROVIDERS: PCP Internal Medicine; Visit Provider Obstetrics & Gynecology
DX: N93.0 Postcoital and contact bleeding (principal)
CPT/HCPCS: 99213

== ENCOUNTER → 2024-05-10 15:19 | Outpatient (BNVA) | payer BC, SELFPAY | PROVIDERS: PCP Internal Medicine; Visit Provider Obstetrics & Gynecology ==

== ENCOUNTER 2024-10-25 11:07 | Outpatient (AMB) | payer BC, SELFPAY ==
[2024-10-25 11:13] VITALS: BP 114/80; PULSE 75; RESP 16; TEMP 36.5; O2SAT 100; BMI 26.4
--- NOTE | 2024-10-25 11:13 | AM.OFFWIN_ITS ---
Intake Vital Signs 10/25/24 11:13 Height 5 ft 3 in Weight 149 lb BMI 26.4 BP 114/80 Blood Pressure Location Lt brachial Position Sitting Respiration 16 Pulse 75 Pulse Source Pulse Oximeter Temp 97.7 F Temp Source Oral Pulse Oximetry (%) 100 Intake Visit Reasons: EP High BP 152/102, headache, dizzy,nausea Intake Note: Pt is here today c/o H/A, nausea and vertigo(off balance) x3days Patient Tobacco Use Status: Never used Tobacco Allergies No Known Allergies Allergy (Unknown, Verified 10/25/24 11:15) UNKNOWN HPI HPI Comments History of Present Illness Details History of Present Illness - The patient is a 49-year-old female wi th a past med hx of an episode of rhabdo 3 years ago from weightlifting, on Zepbound presenting with a migraine. - She has experienced a migraine for thr ee days, accompanied by nausea, light sensitivity, and sound sensitivity. - No vomiting is reported, but fatigue, blurry vision, and dehydration symptoms are present. - The migraine onset coincided with an i ncrease in the dose of the GLP-1 receptor agonist Zepbound. - The patient admits to not maintaining adequate hydration and electrolyte balance. - A background of rhabdomyolysis due to intense physical activity and insufficient fluid intake is noted. - The patient is engaged in regular stre ngth training exercises and reports significant stress levels, as well as pain in both legs, arms and now her chest. - Previous migraine episodes were manage d with medication, though she has not required treatment for an extended period until now. She did try 2 tylenol with no relief. Eating helps the migraine a little. Physical Exam General: Cooperative, healthy appearing, comfortable, no acute distress and well developed Orientation: Patient oriented x3 Limitations: No limitations Head: Normal to inspection Ears: Hearing grossly normal bilaterally Nose: Normal External nose present Face and sinus: Normal facial exam Eyes: Appearance normal, both eyes and all related structures Neck: Normal visual inspection and Yes full ROM Respiratory: Normal respiratory effort and able to speak in complete sentences. Skin: No rashes or lesions noted Neuro: Patient oriented x3, normal gait Extremities: Normal to inspection Patient was informed and verbally consented to the use of an ambient scribe for clinic note documentation during this visit. [facility] Medical History (Updated 10/25/24 @ 11:35 by Viji Irene PA-C) Mild recurrent major depression GEORGES (generalized anxiety disorder) Class 2 obesity with body mass index (BMI) of 36.0 to 36.9 in adult Tension headache Urge and stress incontinence Depression with anxiety Allergic rhinitis Surgical History History of surgery History of gastric surgery History of laparoscopic cholecystectomy History of tubal ligation Family History Father Hypertension Overweight Stroke Enlarged heart Diabetes mellitus CKD stage 3 due to type 2 diabetes mellitus Mother Osteoporosis Hemangiopericytic meningioma Maternal Grandmother Stroke Diabetes mellitus Paternal Grandfather Prostate cancer Family/Other Substance use disorder Mental health disorder Social History Household Members: Children Housing: Apartment Alcohol intake: current Alcohol intake frequency: a few times a month Patient Tobacco Use Status: Never used Tobacco e-Cigarette/Vaping Use: Never Used Second Hand Smoke Exposure: No service: No Current occupational status: employed Current occupational exposures/hazards: No Cognitive needs: No Hearing needs: No Vision needs: No Female Reproductive History Menstrual Age of Menarche: 14 Physical Exam Vital Signs: Last Vital Signs Temp 97.7 F 10/25/24 11:13 Pulse 75 10/25/24 11:13 Resp 16 10/25/24 11:13 BP 114/80 10/25/24 11:13 Pulse Ox 100 10/25/24 11:13 BMI result Body Mass Index 26.4 Assessment & Plan Assessment & Plan (1) Medication side effect: Code(s): T88.7XXA - Unspecified adverse effect of drug or medicament, initial encounter Plan: Plan The patient is experiencing a migraine likely related to an increased dosage of Zepbound, dehydration, and possible low blood sugar due to insufficient nutrition. I recommend she contacts her provider at [facility] to discuss reducing her Zepbound dosage. She should increase her fluid and electrolyte intake, using diluted Gatorade to prevent further dehydration, and eat small, frequent meals to stabilize blood sugar levels. For symptomatic relief, she may take 1000 mg of acetaminophen every eight hours, with the option of alternating with 600 mg of ibuprofen every six hours. Given her history of rhabdomyolysis, and after much discussion, she revealed she is also having arm and leg pains and chest pain. I advised she should visit the emergency department for further evaluation. I have notified [facility] with expect, provider was unavailable by phone so I sent a tigertext with the information to Elida Arrington PA-C. Coding Level of Care Code Est Pt Level 5 (59179) Diagnoses Medication side effect T88.7XXA
--- OUTSIDE RECORDS SUMMARY | 2024-10-25 11:35 | XMS_ITS | Clinical Summary ---
Author Organization [address] Address [address] [place] [id number] Phone Care Team Providers Care Pattern Cutter Name Role Phone Balta Morales NP Primary Care Provider [phone] Social History Tobacco Use Types Packs/Day Years Used Date Smoking Tobacco: Never Assessed Comments Unknown Sex and Gender Information Value Date Recorded Sex Assigned at Not on file Legal Sex Female 12:59 AM EST Gender Identity Not on file Sexual Orientation Not on file Plan of Treatment Health Maintenance Due Date Last Done Comments Breast Cancer Screening 1977 DTaP,Tdap,and Td Vaccines (1 - Tdap) 02/21/1996 Hepatitis B Vaccines (1 of 3 - 19+ 3-dose series) 02/21/1996 Cervical Cancer Screening: P ap Smear 1998 COVID-19 Vaccine (2023-2 5 season) 2024 Colorectal Cancer Screening: Colonoscopy 07/16/2024 Depression Screening 07/16/2024 HIV Screening 07/16/2024 Hepatitis C Screening 07/16/2024 Social Influencers of Health Screening 07/16/2024 Influenza Vaccine (Season Ended) 2025 Cholesterol Screening (Lipid Panel) 07/16/2029 07/16/2024 HIB Vaccines Aged Out No longer eligi ble based on patient's age to complete this topic HPV Vaccines Aged Out No longer eligi ble based on patient's age to complete this topic Hepatitis A Vaccines Aged Out No long er eligible based on patient's age to complete this topic IPV Vaccines Aged Out No longer eligi ble based on patient's age to complete this topic MMR Vaccines Aged Out No longer eligi ble based on patient's age to complete this topic Meningococcal ACWY Vaccine Aged Out N o longer eligible based on patient's age to complete this topic Meningococcal B Vaccine Aged Out No l onger eligible based on patient's age to complete this topic Pneumococcal Vaccine: Pediat rics (0 to 5 Years) and At-Risk Patients (6 to 64 Years) Aged Out No longer eligi ble based on patient's age to complete this topic RSV Immunization Patients Un johnathan 20 months Aged Out No longer eligible b ased on patient's age to complete this topic Varicella Vaccines Aged Out No longer eligible based on patient's age to complete this topic Procedures Procedure Name Priority Date/Time Associated Diagnosis Comments LIPID PANEL WITH REFLEX TO DIRECT LDL Routine 07/16/2024 9:00 AM EST Routine general medical examination at a health care facility from Last 3 Months or Most Recently Relevant to Health Maintenance Results * Lipid panel with reflex to direct LDL (07/16/2024 9:00 AM EST) Cholesterol 154 0 - 200 mg/dL LAB CHEMISTRY METHOD 07/16/2024 1:23 PM [facility] Triglycerides 51 0 - 150 mg/dL LAB CHEMISTRY METHOD 07/16/2024 1:23 PM [facility] HDL 50 >=40 mg/dL LAB CHEMISTRY METHOD 07/16/2024 1:23 PM [facility] LDL Calculated 94 0 - 100 mg/dL LAB CHEMISTRY METHOD 07/16/2024 1:23 PM [facility] VLDL Cholesterol Josue 10.2 mg/dL LAB CHEMISTRY METHOD 07/16/2024 1:23 PM [facility] Non HDL Chol. (LDL+VLDL) 104 <145 mg/dL LAB CHEMISTRY METHOD 07/16/2024 1:23 PM [facility] Chol/HDL Ratio 3.1 0.0 - 4.4 LAB CHEMISTRY METHOD 07/16/2024 1:23 PM [facility] Blood Venous blood specimen / Unknown Venipuncture / Unknown 07/16/2024 9:00 AM EST 07/16/2024 12:30 PM EST us Balta Morales NP LAB BLOOD ORDERABLES Final Re sult [facility] [address] [place] [address], from Last 3 Months or Most Recently Relevant to Health Maintenance Insurance [facility] Care Teams Pattern Cutter Relationship Specialty Start Date End Date Balta Morales NP [address] [address] PCP - General Nurse Practitioner 07/16/24
== END 2024-10-25 12:29 | disposition home or self-care (01) ==
PROVIDERS: PCP Internal Medicine; Visit Provider Physician Assistant
DX: G43.909 Migraine, unspecified, not intractable, without status migrainosus (principal)

== ENCOUNTER → 2024-10-25 11:07 | Outpatient (BNVA) | payer BC, SELFPAY | PROVIDERS: PCP Internal Medicine; Visit Provider Physician Assistant ==

== ENCOUNTER 2025-03-05 13:27 | Outpatient (AMB) | payer BC, SELFPAY ==
[2025-03-05 13:34] VITALS: BP 110/82; PULSE 100; TEMP 37.1; O2SAT 98; BMI 25.5
--- NOTE | 2025-03-05 13:34 | AM.OFFWIN_ITS ---
Intake Vital Signs 03/05/25 13:34 Height 5 ft 3 in Weight 144 lb BMI 25.5 BP 110/82 Blood Pressure Location Rt brachial Position Sitting Pulse 100 Pulse Source Pulse Oximeter Temp 98.7 F Temp Source Oral Pulse Oximetry (%) 98 Oxygen Delivery Method Room Air Intake Visit Reasons: EP Swollen left eye Intake Note: pt presents with LT eye redness, burning, swelling, dryness, itch and weeping also c/o dry cough Patient Tobacco Use Status: Never used Tobacco Allergies No Known Allergies Allergy (Unknown, Verified 03/05/25 13:37) UNKNOWN Medication List - Last Reconciled 03/05/25 by Mirtha Louie MD levonorgestrel (Mirena) intrauterine tirzepatide (weight loss) (Zepbound) 10 mg subcut QWEEK Do you need a note to return to daycare/school/sports/work: Yes HPI EP Swollen left eye HPI Details History of Present Illness The patient is a 50-year-old female presenting with ocular discomfort and sore throat symptoms. Ocular Discomfort: - Onset: Symptoms began the day prior to the visit. - Description: Patient reports feeling a problem with the eye. - Associated symptoms: Yellowish dischar ge left eye; no visual impairment reported. Sore Throat: - Onset: Symptoms began concurrently wit h ocular discomfort. - Description: Patient reported throat p ain that initially hurt more, subsequently subsiding. Medications: - Patient reports taking Advil or Tyleno l as needed for body aches with beneficial effects. 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 Problem List - Viral Conjunctivitis - throat exam within normal limit Plan - Recommend a couple of days off work to facilitate recovery from the viral illness. - Prescribed eye drops for conjunctiviti s and advised keeping the eyes clean. - Recommended warm salt-water gargles fo r throat discomfort. Review of Systems - General: No fever no chills - Neurological: No headaches no dizziness - Ear nose throat: no hearing difficulty no ear pain - Cardiovascular: No syncope, no chest pain, no palpitations - Gastrointestinal: No nausea vomiting or diarrhea Physical Exam General: No acute distress HEENT: Left eye conjunctiva injected, pupils reactive to light, no photophobia no pain with palpation Neck: Supple Respiratory system: Able to talk in full sentences, no audible wheeze Extremities: No new findings RESIDENTIAL BUILDER: Alert awake oriented x3 motor intact Skin: Normal turgor [facility] Medical History Mild recurrent major depression GEORGES (generalized anxiety disorder) Class 2 obesity with body mass index (BMI) of 36.0 to 36.9 in adult Tension headache Urge and stress incontinence Depression with anxiety Allergic rhinitis Surgical History History of surgery History of gastric surgery History of laparoscopic cholecystectomy History of tubal ligation Family History Father Hypertension Overweight Stroke Enlarged heart Diabetes mellitus CKD stage 3 due to type 2 diabetes mellitus Mother Osteoporosis Hemangiopericytic meningioma Maternal Grandmother Stroke Diabetes mellitus Paternal Grandfather Prostate cancer Family/Other Substance use disorder Mental health disorder Social History Household Members: Children Housing: Apartment Alcohol intake: current Alcohol intake frequency: a few times a month Patient Tobacco Use Status: Never used Tobacco e-Cigarette/Vaping Use: Never Used Second Hand Smoke Exposure: No service: No Current occupational status: employed Current occupational exposures/hazards: No Cognitive needs: No Hearing needs: No Vision needs: No Female Reproductive History Menstrual Age of Menarche: 14 Physical Exam Vital Signs: Last Vital Signs Temp 98.7 F 03/05/25 13:34 Pulse 100 03/05/25 13:34 BP 110/82 03/05/25 13:34 Pulse Ox 98 03/05/25 13:34 Oxygen Delivery Method Room Air 03/05/25 13:34 BMI result Body Mass Index 25.5 Assessment & Plan Assessment & Plan (1) Acute conjunctivitis, left eye: Code(s): H10.32 - Unspecified acute conjunctivitis, left eye Qualifiers: Acute conjunctivitis type: unspecified Qualified Code(s): H10.32 - Unspecified acute conjunctivitis, left eye Plan History of Present Illness The patient is a 50-year-old female presenting with ocular discomfort and sore throat symptoms. Ocular Discomfort: - Onset: Symptoms began the day prior to the visit. - Description: Patient reports feeling a problem with the eye. - Associated symptoms: Yellowish discharge left eye; no visual impairment repo rted. Sore Throat: - Onset: Symptoms began concurrently with ocular discomfort. - Description: Patient reported throat pain that initially hurt more, subsequently subsiding. Medications: - Patient reports taking Advil or Tylenol as needed for body aches with beneficial effects. 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 Problem List - Viral Conjunctivitis - throat exam within normal limit Plan - Recommend a couple of days off work to facilitate recovery from the viral illness. - Prescribed eye drops for conjunctivitis and advised keeping the eyes clean. - Recommended warm salt-water gargles for throat discomfort. Medications: New polymyxin B sulf-trimethoprim 10,000 unit- 1 mg/mL while awake; do not exceed 6 doses in 24 hours 1 drp ophthalmic (eye) QID 10 mL 0RF 5 days Coding Level of Care Code Est Pt Level 3 (33668) Diagnoses Acute conjunctivitis of left eye, unspecified acute conjunctivitis type H10.32 Acute conjunctivitis type: unspecified
--- OUTSIDE RECORDS SUMMARY | 2025-03-05 16:30 | XMS_ITS | Patient Health Record ---
Author Organization [facility] [address] Address [address] [place] [address] Care Team Providers Care Tape Duplicator Name Role Phone DIEGO TINAJERO Unavailable [phone] HIRAM ZAMUDIO Unavailable [phone] Allergies No Known Allergies Results Component Value Reference Range Notes URINALYSIS WITH REFLEX MICRO SCOPIC Reviewed date:07/17/2024 08:06:35 AM Interpretation: Performing Lab: Notes/Report: Specific [place] Urine 1.025 1.003-1.030 pH, Urine 6.0 5.0-8.0 pH Leukocytes, Urine Moderate Negative Nitrite, Urine Negative Negative Protein, Urine 100 <=Trace mg/dL Glucose, Urine Negative Negative mg/dL Ketones, Urine Negative Negative mg/dL Urobilinogen, Urine 0.2 0.2-1.0 mg/dL Bilirubin, Urine Negative Negative Blood, Urine Negative Negative RBC, Urine 2.0 0-4 /HPF WBC, Urine >100 0-4 /HPF Squamous Epithelial, Urine >100 0-60 /LPF Bacteria, Urine Moderate Negative /HPF HEMOGLOBIN A1C Reviewed date:07/17/2024 08:06:35 AM Interpretation: Performing Lab: Notes/Report: Hemoglobin A1C 5.3 <6.5 % Mean Bld Glu Estim. 105 COMPREHENSIVE METABOLIC PANE L Reviewed date:07/17/2024 08:06:35 AM Interpretation: Performing Lab: Notes/Report: Sodium 141 133-145 mmol/L Potassium 4.2 3.5-5.5 mmol/L Chloride 107 96-110 mmol/L CO2 25 21-32 mmol/L Anion Gap 9 3-11 Glucose 74 70-100 mg/dL BUN 15 5-25 mg/dL Creatinine 0.85 0.50-1.10 mg/dL eGFR 85 >=60 mL/min/1.73m2 Calculati on based on the?Chronic Kidney Disease Epidemiology Collaboration (CKD-EPI) equation refit?without adjustment for race. BUN/Creatinine Ratio 17.6 Calcium 9.1 8.5-10.5 mg/dL AST (SGOT) 17 10-42 unit/L ALT (SGPT) 13 10-60 unit/L Alkaline Phosphatase 90 42-121 unit/L Total Protein 7.1 6.0-8.0 g/dL Albumin 3.7 3.2-5.0 g/dL Total Bilirubin 0.7 0.0-1.4 mg/dL THYROID STIMULATING HORMONE Reviewed date:07/17/2024 08:06:35 AM Interpretation: Performing Lab: Notes/Report: TSH 1.76 0.40-4.00 mcIU/mL VITAMIN D 25 HYDROXY Reviewed date:07/17/2024 08:06:35 AM Interpretation: Performing Lab: Notes/Report: Vit D, 25-Hydroxy 27.9 30.0-80.0 ng/mL LIPID PANEL WITH REFLEX TO D IRECT LDL Reviewed date:07/17/2024 08:06:35 AM Interpretation: Performing Lab: Notes/Report: Cholesterol 154 0-200 mg/dL Triglycerides 51 0-150 mg/dL HDL 50 >=40 mg/dL LDL Calculated 94 0-100 mg/dL VLDL Cholesterol Josue 10.2 Non HDL Chol. (LDL+VLDL) 104 <145 mg/dL Chol/HDL Ratio 3.1 0.0-4.4 CBC WITH AUTO DIFFERENTIAL Reviewed date:07/17/2024 08:06:35 AM Interpretation: Performing Lab: Notes/Report: WBC 5.2 4.8-10.8 K/mcL RBC 4.60 3.80-4.80 M/mcL Hemoglobin 13.3 11.5-16.0 g/dL Hematocrit 40.7 35.0-47.0 % MCV 88.1 79.0-98.0 FL MCH 28.8 27.0-32.0 pcg MCHC 32.7 32.0-37.0 g/dL RDW 12.5 11.0-15.0 % Platelets 290 130-400 K/mcL MPV 10.6 7.0-11.0 FL NRBC 0.0 <1.0 % NRBC Absolute 0.00 <0.10 K/mcL Neutrophils Relative 47.4 Lymphocytes Relative 44.7 Monocytes Relative 6.1 Eosinophils Relative 1.2 Basophils Relative 0.4 Immature Granulocytes Relative 0.2 Neutrophils Absolute 2.47 1.50-7.00 K/mcL Lymphocytes Absolute 2.33 1.00-5.00 K/mcL Monocytes Absolute 0.32 0.20-1.00 K/mcL Eosinophils Absolute 0.06 0.00-0.50 K/mcL Basophils Absolute 0.02 0.00-0.20 K/mcL Immature Granulocytes Absolute 0.01 0.00-0.03 K/mcL Reason For Referral No Information Medications Medication SIG (Take, Route, Frequency, Duration) Notes Start Date End Date Status Zepbound 12.5 MG/0.5ML INJECT 12.5MG SUBCUTANEOUS WEEKLY 30 DAYS; Duration: 30 Not-Taking Vit D-Vit E-Safflower Oil - as directed Externally Activ e Magnesium Glycinate 100 MG as directed Orally Active Zepbound 15 MG/0.5ML 15mg Subcutaneous w eekly; Duration: 30 days 09/18/2024 Not-Taking Hardin 3 1000 MG 1 capsule Orally Thr ee times a day Not-Taking Zepbound 10 MG/0.5ML 10mg Subcutaneous w eekly; Duration: 30 days Active Apple Cider Vinegar 500 MG as directed Orally Active Problems Problem Type SNOMED Code ICD Code Onset Dates Problem Status W/U Status Risk Notes Problem Vitamin D deficiency (47934343) Vitamin D deficiency, unspecified (E55.9) Active confirmed Problem Obesity due to excess calories (863536023) Other obesity due to excess calories (E66.09) Active confirmed Problem Overweight (626769466) Overweight (E66.3) Active confirmed Problem Fatigue (46712438) Fatigue, unspecified type (R53.83) Active confirmed Problem Body mass index 35.00 to 39.99 (80683112851742 5) Body mass index [BMI] 37.0-37.9, adult (Z68.37) Active confirmed Problem Body mass index 30.00 to 34.99 (54727893331898 7) BMI 31.0-31.9,adult (Z68.31) Active confirmed Problem Body mass index 30.00 to 34.99 (77096660215858 7) BMI 34.0-34.9,adult (Z68.34) Active confirmed Problem Overweight (079878478) Overweight (BMI 25.0-29.9) (E66.3) Active confirmed Problem History of gastric bypass (241787157) History of gastric bypass (Z98.84) Active confirmed Vital Signs Heart Rate 91 /min 02/14/2025 Oximetry 99 % 02/14/2025 Blood pressure diastolic 78 mm Hg 02/14/2025 Height 63 in 02/14/2025 Blood pressure systolic 126 mm Hg 02/14/2025 Weight 149.3 lbs 02/14/2025 BMI 26.44 kg/m2 02/14/2025 Encounters Encounter Location Date Provider Diagnosis [facility] [address] [address] 04/04/2024 HIRAM ZAMUDIO Overweight E66.3 ; B ME 28.0-28.9,adult Z68.28 ; Nutritional counseling Z71.3 and History of gastric bypass Z98.84 [facility] [address] [address] 06/11/2024 DIEGO BORHOT Overweight (BMI 25.0-29.9) E66.3 ; BMI 28.0-28.9,adult Z68.28 ; Dietary counseling and surveillance Z71.3 and Vitamin D deficiency, unspecified E55.9 [facility] [address] 07/25/2024 DIEGO BORHOT Overweight (BMI 25.0-29.9) E66.3 ; BMI 27.0-27.9,adult Z68.27 ; Dietary counseling and surveillance Z71.3 and Vitamin D deficiency, unspecified E55.9 [facility] [address] 09/18/2024 DIEGO BORHOT Overweight (BMI 25.0-29.9) E66.3 ; BMI 27.0-27.9,adult Z68.27 ; Dietary counseling and surveillance Z71.3 and Vitamin D deficiency, unspecified E55.9 [facility] [address] 11/07/2024 DIEGO BORHOT Overweight (BMI 25.0-29.9) E66.3 ; BMI 26.0-26.9,adult Z68.26 ; Dietary counseling and surveillance Z71.3 ; Vitamin D deficiency, unspecified E55.9 and Encounter for examination of blood pressure without abnormal findings Z01.30 [facility] [address] [address] 12/19/2024 DIEGO BORHOT BMI 27.0-27.9,adult Z68.27 ; Overweight (BMI 25.0-29.9) E66.3 ; Dietary counseling and surveillance Z71.3 ; Vitamin D deficiency, unspecified E55.9 and Encounter for examination of blood pressure without abnormal findings Z01.30 [facility] [address] [address] 02/14/2025 DIEGO BORHOT BMI 26.0-26.9,adult Z68.26 ; Overweight (BMI 25.0-29.9) E66.3 ; Dietary counseling and surveillance Z71.3 ; Vitamin D deficiency, unspecified E55.9 and Encounter for examination of blood pressure without abnormal findings Z01.30 [facility] [address] [address] 12/19/2024 DIEGO BORHOT Assessments Encounter Date Diagnosis (ICD Code) Assessment Notes Treatment Notes Treatment Clinical Notes Section Notes 04/04/2024 Overweight (ICD-10 - E66.3) Patient is here for weight management follow-up. We focused on significance of healthy lifestyle changes. We talked about need to track steps with goal between 6000-10,000 steps daily, focus on portion control, read food labels, get adequate sleep between 7 to 8 hours, get adequate rest to the body, meditate, frequent nutritious meals including vegetables and healthy choices of lean meats, fish, and elimination of refined carbohydrates. We also talked about mindfulness and mindful eating. Particular focus was on (). Total time spent with 30 minutes with greater than 50% spent on counseling and coordinating care. 04/04/2024: Weight 160 pounds, BMI 28.34. Edgardo scan completed and interpreted with the patient. Currently taking Zepbound 10 mg once weekly. Has been tolerating the medication well, had some stomach upset when she first began the dose however has resolved now. Reports good diet and protein consumption. Resistance training 3-4 times per week. Will continue current dose of Zepbound. Discussed proper use of the medication including rotating injection sites and expected side effect profile including but not limited to nausea, constipation, abdominal pain, and heartburn. She will follow-up in the office in approximately 4 weeks for weight management. All patient questions answered at this time. All questions have been answered to patient's satisfaction. Patient verbalized understanding of diagnosis and treatments explained. Advised to call sooner prior to next visit it any questions/concerns arise. Case discussed with collaborating physician Maura De La Vega who reviewed the assessment and plan. Chart, medications, labs, vital signs reviewed. Dictation was accomplished with the use of [employer] voice recognition software, which is prone to medical misidentifications and grammatical errors. This are unintentional and the practitioner does try to identify and correct these, but some could still be present. Please do not hesitate to contact practitioner for clarification. 04/04/2024 BMI 28.0-28.9,adult (ICD-10 - Z68.28) Patient is here for weight management follow-up. We focused on significance of healthy lifestyle changes. We talked about need to track steps with goal between 6000-10,000 steps daily, focus on portion control, read food labels, get adequate sleep between 7 to 8 hours, get adequate rest to the body, meditate, frequent nutritious meals including vegetables and healthy choices of lean meats, fish, and elimination of refined carbohydrates. We also talked about mindfulness and mindful eating. Particular focus was on (). Total time spent with 30 minutes with greater than 50% spent on counseling and coordinating care. 04/04/2024: Weight 160 pounds, BMI 28.34. Edgardo scan completed and interpreted with the patient. Currently taking Zepbound 10 mg once weekly. Has been tolerating the medication well, had some stomach upset when she first began the dose however has resolved now. Reports good diet and protein consumption. Resistance training 3-4 times per week. Will continue current dose of Zepbound. Discussed proper use of the medication including rotating injection sites and expected side effect profile including but not limited to nausea, constipation, abdominal pain, and heartburn. She will follow-up in the office in approximately 4 weeks for weight management. All patient questions answered at this time. All questions have been answered to patient's satisfaction. Patient verbalized understanding of diagnosis and treatments explained. Advised to call sooner prior to next visit it any questions/concerns arise. Case discussed with collaborating physician Maura De La Vega who reviewed the assessment and plan. Chart, medications, labs, vital signs reviewed. Dictation was accomplished with the use of [employer] voice recognition software, which is prone to medical misidentifications and grammatical errors. This are unintentional and the practitioner does try to identify and correct these, but some could still be present. Please do not hesitate to contact practitioner for clarification. 06/11/2024 BMI 28.0-28.9,adult (ICD-10 - Z68.28) #Weight Management 06/11/2024 _update labs prior to next visit Thriving otherwise Continue 10 mg dosing with option to increase to 12.5 Total time spent today was 30 minutes of which greater than 50% was spent on coordinating and counseling Patient has been found to be overweight with a BMI of (28). Patient has overweight class per BMI standards We are a board certified obesity and weight management practice Patient has trialed behavioral modification, dietary restrictions and exercise for a minimum of 6 months The most recent [place] [employer] of clinical endocrinologists and [place] [employer] endocrin[employer] guidelines recommend patients who have overweight BMI or obesity BMI, who also have metabolic syndrome, prediabetes, HLD, and other comorbidities or at risk of developing type 2 diabetes should aim for a weight loss goal of at least 10% of the baseline body weight Patient counseled regarding effects of GLP/GIP-1 agonists, and other FDA approved wgt loss meds with regards to a multifactorial approach of weight loss as mentioned above and not solely appetite suppression. We have discussed the mechanism of GLP-1's/GIP, dual incretins I think this would be fantastic option for her given her metabolic workup and body composition We have discussed the risks and benefits and side effects including/and not limited to Sarcopenia, intestinal obstruction, constipation, nausea, lethargy, headache Discussed importance of protein consumption for muscle maintenance as well as strength and resistance training ,probiotics, B12 complex biotin , iron and other nutrients, To help avoid telogen effluvium There is no history of medullary thyroid cancer or multiple endocrine neoplasia There is also no history of cardiovascular disease, hypertension, palpitations, or arrhythmias In the setting of potential stimulant/amphetamine use such as phentermine We have also discussed risks and benefits, and the use of compounded medications to help offset the national shortages as well as financial implications vs trade name drugs GLP must be discontinued upon initiation We have discussed the lifelong requirement of nutritional supplementation And adherence to an exercise regimen as well as importance We did discuss the neurohormonal changes that are occurring with these medications and Need for long-term Continued usage The patient understands and agrees Patient was reassured and welcomed to the practice. We discussed that we stress a hollistic medical approach with emphasis on lifestyle modification. Patient was informed that a healthy lifestyle with exercise and good eating habits can help reduce his risk of medical complications. He is explained that obesity increases his risk of diabetes, cardiovascular disease, or organ damage. We spent a lot of time discussing the relationship between food, exercise, sleep, mental health and obesity. Patient was counseled on the importance EATING local, organic food when possible. Patient was educated on clean 15 and dirty dozen. I provided information about reading books called The Food Rules by Dc Lowry and Eat Fat Get Lean by Dr Howard De Leon. Self education is important in the journey for weight management. Patient was offered diagnostic testing. We want to measure visceral adiposity, advanced body composition, adverse lipids, fatty acid balance, risk for heart disease and atherosclerosis, markers of inflammation and genetic susceptibility. Patient was counseled on weight management and was advised to lose weight using A. Meal Replacement Products We discussed the lifelong requirement of nutritional supplementation and adherence to an exercise regimen as well as importance of dietary f/u Patient was educated on the replacement products called optifast. This is a good way of taking fixed amount of calories. It has been shown in studies to be ineffective weight management tool. We also recommend maintaining adequate protein intake and muscle composition, 1.5mg/kg This however has to be coupled with lifestyle intervention as well as laboratory data and EKG monitoring. It is impossible to know how a person will tolerate complete meal replacement. The side effects of meal replacement and weight loss could include syncopal attacks, dizziness, gallstones, potential cholecystectomy, possible heart attack and even . The benefits of meal replacement would be potential weight loss but no guarantees can be made. Meal replacement products are not covered by insurance. Once the patient has bought these products we cannot return them B. Lifestyle management which includes several strategies as below 1. Eat a low carbohydrate good fat good protein diet. Eliminate refined carbohydrates from the diet. Continue blood sugar and sugared beverages. Eat local organic when possible. Cook your own meals. Read food labels. None about healthy snacks. Portion control and food with low glycemic index 2. Exercise regularly. Try to get at least 6000 steps a day. Use a predominant to track activity level. Consider using apps like [employer], [employer], lose it, stick as needed for self-monitoring and weight management. Consider group exercises. Consider hiring a health and safety trainer. Regular exercise is lucas to sustainable health and prevents as a buffer against weight regain 3. Sleep is most important for healing. Tried to sleep at least 8 hours a night. A good quality sleep needs a sleep ritual with ideal room temperature of around 68. It might help to take a shower and have no electronics in the room and sleep in a very dark room without artificial light. Start her sleep routine and get up early in the morning and go to bed on time 4. Make a social connection. Surround yourself with positive people with positive energy. Connect with friends and family. 5. Get into the habit of meditating and mindfulness while doing everything. 6. Go outside and connect with nature. C. Prescription medications Patient was educated on the use of prescription medications for medical weight loss. This is a growing list and includes phentermine, Topamax,Qsymia, contrave, belviq and saxenda, wegovy All prescription medications could have side effects including but not limited to kidney stones, seizure disorder cardiac arrhythmias heart attack pancreatitis etc. etc.. Patient was encouraged to read the prescription insert and have coaching with their pharmacist and make an informed decision about taking medication and know that these medications are being prescribed with good intentions and we do not know how a patient would react to her medication. Sudden medications are FDA approved for weight loss and there is also off label use depending on patient's inability to afford medications in an attempt to lose weight D. Behavioral counseling was done to establish a relationship between food and an mood. Patient was provided information about local counseling and psychiatry and Dr Solis at [facility]. We would like to cover regular topics and build on low glycemic eating exercise mindful eating, using yoga and meditation along with deep breathing and connecting with friends and family. E. MASS PAT reviewed, Patient's current medications were reviewed and opinion was given on medication that can cause weight gain and can be substituted F. Patient was assessed for risk with obesity including and not limiting to atherosclerosis heart disease stroke kidney disease, restrictive lung disease, irritable bowel syndrome and overall mortality. Risk of developing prediabetes diabetes and metabolic syndrome was discussed G. Therapeutic plan: We have decided to make therapeutic plan which would include choosing wisely on calories restricting portion getting active, tracking weight, getting good quality sleep and working on time management H. Patient will follow up in (4) weeks for weight management Of note, some information is being carried forward from prior records for informational purposes only and is being cited so that efficiency, safety and quality of the patient's care is not compromised This note was prepared using voice recognition software and direct typing Please excuse inadvertent digital solution architect or typing errors, or uncorrected word substitutions Although every attempt has been made by the provider to proofread this document, occasional misspellings and typographical errors may still be present Due to the previous pandemic, and the use of personal protective equipment (PPE) This may decrease voice recognition accuracy Inadvertent digital solution architect errors may occur 06/11/2024 Overweight (BMI 25.0-29.9) (ICD-10 - E66.3) #Weight Management 06/11/2024 _update labs prior to next visit Thriving otherwise Continue 10 mg dosing with option to increase to 12.5 Total time spent today was 30 minutes of which greater than 50% was spent on coordinating and counseling Patient has been found to be overweight with a BMI of (28). Patient has overweight class per BMI standards We are a board certified obesity and weight management practice Patient has trialed behavioral modification, dietary restrictions and exercise for a minimum of 6 months The most recent [place] [employer] of clinical endocrinologists and [place] [employer]in[employer] guidelines recommend patients who have overweight BMI or obesity BMI, who also have metabolic syndrome, prediabetes, HLD, and other comorbidities or at risk of developing type 2 diabetes should aim for a weight loss goal of at least 10% of the baseline body weight Patient counseled regarding effects of GLP/GIP-1 agonists, and other FDA approved wgt loss meds with regards to a multifactorial approach of weight loss as mentioned above and not solely appetite suppression. We have discussed the mechanism of GLP-1's/GIP, dual incretins I think this would be fantastic option for her given her metabolic workup and body composition We have discussed the risks and benefits and side effects including/and not limited to Sarcopenia, intestinal obstruction, constipation, nausea, lethargy, headache Discussed importance of protein consumption for muscle maintenance as well as strength and resistance training ,probiotics, B12 complex biotin , iron and other nutrients, To help avoid telogen effluvium There is no history of medullary thyroid cancer or multiple endocrine neoplasia There is also no history of cardiovascular disease, hypertension, palpitations, or arrhythmias In the setting of potential stimulant/amphetamine use such as phentermine We have also discussed risks and benefits, and the use of compounded medications to help offset the national shortages as well as financial implications vs trade name drugs GLP must be discontinued upon initiation We have discussed the lifelong requirement of nutritional supplementation And adherence to an exercise regimen as well as importance We did discuss the neurohormonal changes that are occurring with these medications and Need for long-term Continued usage The patient understands and agrees Patient was reassured and welcomed to the practice. We discussed that we stress a hollistic medical approach with emphasis on lifestyle modification. Patient was informed that a healthy lifestyle with exercise and good eating habits can help reduce his risk of medical complications. He is explained that obesity increases his risk of diabetes, cardiovascular disease, or organ damage. We spent a lot of time discussing the relationship between food, exercise, sleep, mental health and obesity. Patient was counseled on the importance EATING local, organic food when possible. Patient was educated on clean 15 and dirty dozen. I provided information about reading books called The Food Rules by Dc Lowry and Eat Fat Get Lean by Dr Howard De Leon. Self education is important in the journey for weight management. Patient was offered diagnostic testing. We want to measure visceral adiposity, advanced body composition, adverse lipids, fatty acid balance, risk for heart disease and atherosclerosis, markers of inflammation and genetic susceptibility. Patient was counseled on weight management and was advised to lose weight using A. Meal Replacement Products We discussed the lifelong requirement of nutritional supplementation and adherence to an exercise regimen as well as importance of dietary f/u Patient was educated on the replacement products called optifast. This is a good way of taking fixed amount of calories. It has been shown in studies to be ineffective weight management tool. We also recommend maintaining adequate protein intake and muscle composition, 1.5mg/kg This however has to be coupled with lifestyle intervention as well as laboratory data and EKG monitoring. It is impossible to know how a person will tolerate complete meal replacement. The side effects of meal replacement and weight loss could include syncopal attacks, dizziness, gallstones, potential cholecystectomy, possible heart attack and even . The benefits of meal replacement would be potential weight loss but no guarantees can be made. Meal replacement products are not covered by insurance. Once the patient has bought these products we cannot return them B. Lifestyle management which includes several strategies as below 1. Eat a low carbohydrate good fat good protein diet. Eliminate refined carbohydrates from the diet. Continue blood sugar and sugared beverages. Eat local organic when possible. Cook your own meals. Read food labels. None about healthy snacks. Portion control and food with low glycemic index 2. Exercise regularly. Try to get at least 6000 steps a day. Use a predominant to track activity level. Consider using apps like [employer], [employer], lose it, stick as needed for self-monitoring and weight management. Consider group exercises. Consider hiring a health and safety trainer. Regular exercise is lucas to sustainable health and prevents as a buffer against weight regain 3. Sleep is most important for healing. Tried to sleep at least 8 hours a night. A good quality sleep needs a sleep ritual with ideal room temperature of around 68. It might help to take a shower and have no electronics in the room and sleep in a very dark room without artificial light. Start her sleep routine and get up early in the morning and go to bed on time 4. Make a social connection. Surround yourself with positive people with positive energy. Connect with friends and family. 5. Get into the habit of meditating and mindfulness while doing everything. 6. Go outside and connect with nature. C. Prescription medications Patient was educated on the use of prescription medications for medical weight loss. This is a growing list and includes phentermine, Topamax,Qsymia, contrave, belviq and saxenda, wegovy All prescription medications could have side effects including but not limited to kidney stones, seizure disorder cardiac arrhythmias heart attack pancreatitis etc. etc.. Patient was encouraged to read the prescription insert and have coaching with their pharmacist and make an informed decision about taking medication and know that these medications are being prescribed with good intentions and we do not know how a patient would react to her medication. Sudden medications are FDA approved for weight loss and there is also off label use depending on patient's inability to afford medications in an attempt to lose weight D. Behavioral counseling was done to establish a relationship between food and an mood. Patient was provided information about local counseling and psychiatry and Dr Solis at [facility]. We would like to cover regular topics and build on low glycemic eating exercise mindful eating, using yoga and meditation along with deep breathing and connecting with friends and family. E. MASS PAT reviewed, Patient's current medications were reviewed and opinion was given on medication that can cause weight gain and can be substituted F. Patient was assessed for risk with obesity including and not limiting to atherosclerosis heart disease stroke kidney disease, restrictive lung disease, irritable bowel syndrome and overall mortality. Risk of developing prediabetes diabetes and metabolic syndrome was discussed G. Therapeutic plan: We have decided to make therapeutic plan which would include choosing wisely on calories restricting portion getting active, tracking weight, getting good quality sleep and working on time management H. Patient will follow up in (4) weeks for weight management Of note, some information is being carried forward from prior records for informational purposes only and is being cited so that efficiency, safety and quality of the patient's care is not compromised This note was prepared using voice recognition software and direct typing Please excuse inadvertent digital solution architect or typing errors, or uncorrected word substitutions Although every attempt has been made by the provider to proofread this document, occasional misspellings and typographical errors may still be present Due to the previous pandemic, and the use of personal protective equipment (PPE) This may decrease voice recognition accuracy Inadvertent digital solution architect errors may occur 07/25/2024 BMI 27.0-27.9,adult (ICD-10 - Z68.27) #Weight Management 07/25/2024 labs reviewed [facility] otherwise Continue 10 mg dosing with option to increase to 12.5 Total time spent today was 30 minutes of which greater than 50% was spent on coordinating and counseling Patient has been found to be overweight with a BMI of (27). Patient has overweight class per BMI standards We are a board certified obesity and weight management practice Of note, some information is being carried forward from prior records for informational purposes only and is being cited so that efficiency, safety and quality of the patient's care is not compromised This note was prepared using voice recognition software and direct typing Please excuse inadvertent digital solution architect or typing errors, or uncorrected word substitutions Although every attempt has been made by the provider to proofread this document, occasional misspellings and typographical errors may still be present Due to the previous pandemic, and the use of personal protective equipment (PPE) This may decrease voice recognition accuracy Inadvertent digital solution architect errors may occur 07/25/2024 Overweight (BMI 25.0-29.9) (ICD-10 - E66.3) #Weight Management 07/25/2024 labs reviewed [facility] otherwise Continue 10 mg dosing with option to increase to 12.5 Total time spent today was 30 minutes of which greater than 50% was spent on coordinating and counseling Patient has been found to be overweight with a BMI of (27). Patient has overweight class per BMI standards We are a board certified obesity and weight management practice Of note, some information is being carried forward from prior records for informational purposes only and is being cited so that efficiency, safety and quality of the patient's care is not compromised This note was prepared using voice recognition software and direct typing Please excuse inadvertent digital solution architect or typing errors, or uncorrected word substitutions Although every attempt has been made by the provider to proofread this document, occasional misspellings and typographical errors may still be present Due to the previous pandemic, and the use of personal protective equipment (PPE) This may decrease voice recognition accuracy Inadvertent digital solution architect errors may occur 11/07/2024 BMI 26.0-26.9,adult (ICD-10 - Z68.26) #Weight Management 11/07/2024 labs reviewed [facility] otherwise Decrease to Zepound 10mg Total time spent today was 30 minutes of which greater than 50% was spent on coordinating and counseling Patient has been found to be overweight with a BMI of (26). Patient has overweight class per BMI standards We are a board certified obesity and weight management practice Of note, some information is being carried forward from prior records for informational purposes only and is being cited so that efficiency, safety and quality of the patient's care is not compromised This note was prepared using voice recognition software and direct typing Please excuse inadvertent digital solution architect or typing errors, or uncorrected word substitutions Although every attempt has been made by the provider to proofread this document, occasional misspellings and typographical errors may still be present Due to the previous pandemic, and the use of personal protective equipment (PPE) This may decrease voice recognition accuracy Inadvertent digital solution architect errors may occur 11/07/2024 Overweight (BMI 25.0-29.9) (ICD-10 - E66.3) #Weight Management 11/07/2024 labs reviewed [facility] otherwise Decrease to Zepound 10mg Total time spent today was 30 minutes of which greater than 50% was spent on coordinating and counseling Patient has been found to be overweight with a BMI of (26). Patient has overweight class per BMI standards We are a board certified obesity and weight management practice Of note, some information is being carried forward from prior records for informational purposes only and is being cited so that efficiency, safety and quality of the patient's care is not compromised This note was prepared using voice recognition software and direct typing Please excuse inadvertent digital solution architect or typing errors, or uncorrected word substitutions Although every attempt has been made by the provider to proofread this document, occasional misspellings and typographical errors may still be present Due to the previous pandemic, and the use of personal protective equipment (PPE) This may decrease voice recognition accuracy Inadvertent digital solution architect errors may occur 09/18/2024 Overweight (BMI 25.0-29.9) (ICD-10 - E66.3) #Weight Management 09/18/2024 labs reviewed [facility] otherwise incr to 15mg Total time spent today was 30 minutes of which greater than 50% was spent on coordinating and counseling Patient has been found to be overweight with a BMI of (27). Patient has overweight class per BMI standards We are a board certified obesity and weight management practice Of note, some information is being carried forward from prior records for informational purposes only and is being cited so that efficiency, safety and quality of the patient's care is not compromised This note was prepared using voice recognition software and direct typing Please excuse inadvertent digital solution architect or typing errors, or uncorrected word substitutions Although every attempt has been made by the provider to proofread this document, occasional misspellings and typographical errors may still be present Due to the previous pandemic, and the use of personal protective equipment (PPE) This may decrease voice recognition accuracy Inadvertent digital solution architect errors may occur 12/19/2024 BMI 27.0-27.9,adult (ICD-10 - Z68.27) #Weight Management 12/19/2024 BMI 27.8, +3.8lbs fat mass, -0.7 muscle mass Patient has been off medications for two weeks due to insurance issues more h2o weight on body comp obv incr in fat mass, will check on PA Patient started creatinine every day 2 months ago, most likely contributing to water retention Total time spent today was 30 minutes of which greater than 50% was spent on coordinating and counseling Patient has been found to be overweight with a BMI of (27). Patient has overweight class per BMI standards We are a board certified obesity and weight management practice Of note, some information is being carried forward from prior records for informational purposes only and is being cited so that efficiency, safety and quality of the patient's care is not compromised This note was prepared using voice recognition software and direct typing Please excuse inadvertent digital solution architect or typing errors, or uncorrected word substitutions Although every attempt has been made by the provider to proofread this document, occasional misspellings and typographical errors may still be present Due to the previous pandemic, and the use of personal protective equipment (PPE) This may decrease voice recognition accuracy Inadvertent digital solution architect errors may occur 02/14/2025 BMI 26.0-26.9,adult (ICD-10 - Z68.26) #Weight Management 02/14/2025 Approaching target goal weight Discussed maintenance dosing in the upcoming future Continue current dosing model Total time spent today was 30 minutes of which greater than 50% was spent on coordinating and counseling Patient has been found to be overweight with a BMI of (26). Patient has overweight class per BMI standards We are a board certified obesity and weight management practice Of note, some information is being carried forward from prior records for informational purposes only and is being cited so that efficiency, safety and quality of the patient's care is not compromised This note was prepared using voice recognition software and direct typing Please excuse inadvertent digital solution architect or typing errors, or uncorrected word substitutions Although every attempt has been made by the provider to proofread this document, occasional misspellings and typographical errors may still be present Due to the previous pandemic, and the use of personal protective equipment (PPE) This may decrease voice recognition accuracy Inadvertent digital solution architect errors may occur 02/14/2025 Overweight (BMI 25.0-29.9) (ICD-10 - E66.3) #Weight Management 02/14/2025 Approaching target goal weight Discussed maintenance dosing in the upcoming future Continue current dosing model Total time spent today was 30 minutes of which greater than 50% was spent on coordinating and counseling Patient has been found to be overweight with a BMI of (26). Patient has overweight class per BMI standards We are a board certified obesity and weight management practice Of note, some information is being carried forward from prior records for informational purposes only and is being cited so that efficiency, safety and quality of the patient's care is not compromised This note was prepared using voice recognition software and direct typing Please excuse inadvertent digital solution architect or typing errors, or uncorrected word substitutions Although every attempt has been made by the provider to proofread this document, occasional misspellings and typographical errors may still be present Due to the previous pandemic, and the use of personal protective equipment (PPE) This may decrease voice recognition accuracy Inadvertent digital solution architect errors may occur 02/14/2025 Dietary counseling and surveillance (ICD-10 - Z71.3) #Weight Management 02/14/2025 Approaching target goal weight Discussed maintenance dosing in the upcoming future Continue current dosing model Total time spent today was 30 minutes of which greater than 50% was spent on coordinating and counseling Patient has been found to be overweight with a BMI of (26). Patient has overweight class per BMI standards We are a board certified obesity and weight management practice Of note, some information is being carried forward from prior records for informational purposes only and is being cited so that efficiency, safety and quality of the patient's care is not compromised This note was prepared using voice recognition software and direct typing Please excuse inadvertent digital solution architect or typing errors, or uncorrected word substitutions Although every attempt has been made by the provider to proofread this document, occasional misspellings and typographical errors may still be present Due to the previous pandemic, and the use of personal protective equipment (PPE) This may decrease voice recognition accuracy Inadvertent digital solution architect errors may occur 12/19/2024 Overweight (BMI 25.0-29.9) (ICD-10 - E66.3) #Weight Management 12/19/2024 BMI 27.8, +3.8lbs fat mass, -0.7 muscle mass Patient has been off medications for two weeks due to insurance issues more h2o weight on body comp obv incr in fat mass, will check on PA Patient started creatinine every day 2 months ago, most likely contributing to water retention Total time spent today was 30 minutes of which greater than 50% was spent on coordinating and counseling Patient has been found to be overweight with a BMI of (27). Patient has overweight class per BMI standards We are a board certified obesity and weight management practice Of note, some information is being carried forward from prior records for informational purposes only and is being cited so that efficiency, safety and quality of the patient's care is not compromised This note was prepared using voice recognition software and direct typing Please excuse inadvertent digital solution architect or typing errors, or uncorrected word substitutions Although every attempt has been made by the provider to proofread this document, occasional misspellings and typographical errors may still be present Due to the previous pandemic, and the use of personal protective equipment (PPE) This may decrease voice recognition accuracy Inadvertent digital solution architect errors may occur 11/07/2024 Dietary counseling and surveillance (ICD-10 - Z71.3) #Weight Management 11/07/2024 labs reviewed [facility] otherwise Decrease to Zepound 10mg Total time spent today was 30 minutes of which greater than 50% was spent on coordinating and counseling Patient has been found to be overweight with a BMI of (26). Patient has overweight class per BMI standards We are a board certified obesity and weight management practice Of note, some information is being carried forward from prior records for informational purposes only and is being cited so that efficiency, safety and quality of the patient's care is not compromised This note was prepared using voice recognition software and direct typing Please excuse inadvertent digital solution architect or typing errors, or uncorrected word substitutions Although every attempt has been made by the provider to proofread this document, occasional misspellings and typographical errors may still be present Due to the previous pandemic, and the use of personal protective equipment (PPE) This may decrease voice recognition accuracy Inadvertent digital solution architect errors may occur 12/19/2024 Dietary counseling and surveillance (ICD-10 - Z71.3) #Weight Management 12/19/2024 BMI 27.8, +3.8lbs fat mass, -0.7 muscle mass Patient has been off medications for two weeks due to insurance issues more h2o weight on body comp obv incr in fat mass, will check on PA Patient started creatinine every day 2 months ago, most likely contributing to water retention Total time spent today was 30 minutes of which greater than 50% was spent on coordinating and counseling Patient has been found to be overweight with a BMI of (27). Patient has overweight class per BMI standards We are a board certified obesity and weight management practice Of note, some information is being carried forward from prior records for informational purposes only and is being cited so that efficiency, safety and quality of the patient's care is not compromised This note was prepared using voice recognition software and direct typing Please excuse inadvertent digital solution architect or typing errors, or uncorrected word substitutions Although every attempt has been made by the provider to proofread this document, occasional misspellings and typographical errors may still be present Due to the previous pandemic, and the use of personal protective equipment (PPE) This may decrease voice recognition accuracy Inadvertent digital solution architect errors may occur 09/18/2024 BMI 27.0-27.9,adult (ICD-10 - Z68.27) #Weight Management 09/18/2024 labs reviewed [facility] otherwise incr to 15mg Total time spent today was 30 minutes of which greater than 50% was spent on coordinating and counseling Patient has been found to be overweight with a BMI of (27). Patient has overweight class per BMI standards We are a board certified obesity and weight management practice Of note, some information is being carried forward from prior records for informational purposes only and is being cited so that efficiency, safety and quality of the patient's care is not compromised This note was prepared using voice recognition software and direct typing Please excuse inadvertent digital solution architect or typing errors, or uncorrected word substitutions Although every attempt has been made by the provider to proofread this document, occasional misspellings and typographical errors may still be present Due to the previous pandemic, and the use of personal protective equipment (PPE) This may decrease voice recognition accuracy Inadvertent digital solution architect errors may occur 06/11/2024 Dietary counseling and surveillance (ICD-10 - Z71.3) #Weight Management 06/11/2024 _update labs prior to next visit Thriving otherwise Continue 10 mg dosing with option to increase to 12.5 Total time spent today was 30 minutes of which greater than 50% was spent on coordinating and counseling Patient has been found to be overweight with a BMI of (28). Patient has overweight class per BMI standards We are a board certified obesity and weight management practice Patient has trialed behavioral modification, dietary restrictions and exercise for a minimum of 6 months The most recent [place] [employer]ocrinologists and [place] [employer] guidelines recommend patients who have overweight BMI or obesity BMI, who also have metabolic syndrome, prediabetes, HLD, and other comorbidities or at risk of developing type 2 diabetes should aim for a weight loss goal of at least 10% of the baseline body weight Patient counseled regarding effects of GLP/GIP-1 agonists, and other FDA approved wgt loss meds with regards to a multifactorial approach of weight loss as mentioned above and not solely appetite suppression. We have discussed the mechanism of GLP-1's/GIP, dual incretins I think this would be fantastic option for her given her metabolic workup and body composition We have discussed the risks and benefits and side effects including/and not limited to Sarcopenia, intestinal obstruction, constipation, nausea, lethargy, headache Discussed importance of protein consumption for muscle maintenance as well as strength and resistance training ,probiotics, B12 complex biotin , iron and other nutrients, To help avoid telogen effluvium There is no history of medullary thyroid cancer or multiple endocrine neoplasia There is also no history of cardiovascular disease, hypertension, palpitations, or arrhythmias In the setting of potential stimulant/amphetamine use such as phentermine We have also discussed risks and benefits, and the use of compounded medications to help offset the national shortages as well as financial implications vs trade name drugs GLP must be discontinued upon initiation We have discussed the lifelong requirement of nutritional supplementation And adherence to an exercise regimen as well as importance We did discuss the neurohormonal changes that are occurring with these medications and Need for long-term Continued usage The patient understands and agrees Patient was reassured and welcomed to the practice. We discussed that we stress a hollistic medical approach with emphasis on lifestyle modification. Patient was informed that a healthy lifestyle with exercise and good eating habits can help reduce his risk of medical complications. He is explained that obesity increases his risk of diabetes, cardiovascular disease, or organ damage. We spent a lot of time discussing the relationship between food, exercise, sleep, mental health and obesity. Patient was counseled on the importance EATING local, organic food when possible. Patient was educated on clean 15 and dirty dozen. I provided information about reading books called The Food Rules by Dc Lowry and Eat Fat Get Lean by Dr Howard De Leon. Self education is important in the journey for weight management. Patient was offered diagnostic testing. We want to measure visceral adiposity, advanced body composition, adverse lipids, fatty acid balance, risk for heart disease and atherosclerosis, markers of inflammation and genetic susceptibility. Patient was counseled on weight management and was advised to lose weight using A. Meal Replacement Products We discussed the lifelong requirement of nutritional supplementation and adherence to an exercise regimen as well as importance of dietary f/u Patient was educated on the replacement products called optifast. This is a good way of taking fixed amount of calories. It has been shown in studies to be ineffective weight management tool. We also recommend maintaining adequate protein intake and muscle composition, 1.5mg/kg This however has to be coupled with lifestyle intervention as well as laboratory data and EKG monitoring. It is impossible to know how a person will tolerate complete meal replacement. The side effects of meal replacement and weight loss could include syncopal attacks, dizziness, gallstones, potential cholecystectomy, possible heart attack and even . The benefits of meal replacement would be potential weight loss but no guarantees can be made. Meal replacement products are not covered by insurance. Once the patient has bought these products we cannot return them B. Lifestyle management which includes several strategies as below 1. Eat a low carbohydrate good fat good protein diet. Eliminate refined carbohydrates from the diet. Continue blood sugar and sugared beverages. Eat local organic when possible. Cook your own meals. Read food labels. None about healthy snacks. Portion control and food with low glycemic index 2. Exercise regularly. Try to get at least 6000 steps a day. Use a predominant to track activity level. Consider using apps like [employer], [employer], lose it, stick as needed for self-monitoring and weight management. Consider group exercises. Consider hiring a health and safety trainer. Regular exercise is lucas to sustainable health and prevents as a buffer against weight regain 3. Sleep is most important for healing. Tried to sleep at least 8 hours a night. A good quality sleep needs a sleep ritual with ideal room temperature of around 68. It might help to take a shower and have no electronics in the room and sleep in a very dark room without artificial light. Start her sleep routine and get up early in the morning and go to bed on time 4. Make a social connection. Surround yourself with positive people with positive energy. Connect with friends and family. 5. Get into the habit of meditating and mindfulness while doing everything. 6. Go outside and connect with nature. C. Prescription medications Patient was educated on the use of prescription medications for medical weight loss. This is a growing list and includes phentermine, Topamax,Qsymia, contrave, belviq and saxenda, wegovy All prescription medications could have side effects including but not limited to kidney stones, seizure disorder cardiac arrhythmias heart attack pancreatitis etc. etc.. Patient was encouraged to read the prescription insert and have coaching with their pharmacist and make an informed decision about taking medication and know that these medications are being prescribed with good intentions and we do not know how a patient would react to her medication. Sudden medications are FDA approved for weight loss and there is also off label use depending on patient's inability to afford medications in an attempt to lose weight D. Behavioral counseling was done to establish a relationship between food and an mood. Patient was provided information about local counseling and psychiatry and Dr Solis at [facility]. We would like to cover regular topics and build on low glycemic eating exercise mindful eating, using yoga and meditation along with deep breathing and connecting with friends and family. E. MASS PAT reviewed, Patient's current medications were reviewed and opinion was given on medication that can cause weight gain and can be substituted F. Patient was assessed for risk with obesity including and not limiting to atherosclerosis heart disease stroke kidney disease, restrictive lung disease, irritable bowel syndrome and overall mortality. Risk of developing prediabetes diabetes and metabolic syndrome was discussed G. Therapeutic plan: We have decided to make therapeutic plan which would include choosing wisely on calories restricting portion getting active, tracking weight, getting good quality sleep and working on time management H. Patient will follow up in (4) weeks for weight management Of note, some information is being carried forward from prior records for informational purposes only and is being cited so that efficiency, safety and quality of the patient's care is not compromised This note was prepared using voice recognition software and direct typing Please excuse inadvertent digital solution architect or typing errors, or uncorrected word substitutions Although every attempt has been made by the provider to proofread this document, occasional misspellings and typographical errors may still be present Due to the previous pandemic, and the use of personal protective equipment (PPE) This may decrease voice recognition accuracy Inadvertent digital solution architect errors may occur 07/25/2024 Dietary counseling and surveillance (ICD-10 - Z71.3) #Weight Management 07/25/2024 labs reviewed Thriving otherwise Continue 10 mg dosing with option to increase to 12.5 Total time spent today was 30 minutes of which greater than 50% was spent on coordinating and counseling Patient has been found to be overweight with a BMI of (27). Patient has overweight class per BMI standards We are a board certified obesity and weight management practice Of note, some information is being carried forward from prior records for informational purposes only and is being cited so that efficiency, safety and quality of the patient's care is not compromised This note was prepared using voice recognition software and direct typing Please excuse inadvertent digital solution architect or typing errors, or uncorrected word substitutions Although every attempt has been made by the provider to proofread this document, occasional misspellings and typographical errors may still be present Due to the previous pandemic, and the use of personal protective equipment (PPE) This may decrease voice recognition accuracy Inadvertent digital solution architect errors may occur 04/04/2024 Nutritional counseling (ICD-10 - Z71.3) Patient is here for weight management follow-up. We focused on significance of healthy lifestyle changes. We talked about need to track steps with goal between 6000-10,000 steps daily, focus on portion control, read food labels, get adequate sleep between 7 to 8 hours, get adequate rest to the body, meditate, frequent nutritious meals including vegetables and healthy choices of lean meats, fish, and elimination of refined carbohydrates. We also talked about mindfulness and mindful eating. Particular focus was on (). Total time spent with 30 minutes with greater than 50% spent on counseling and coordinating care. 04/04/2024: Weight 160 pounds, BMI 28.34. Edgardo scan completed and interpreted with the patient. Currently taking Zepbound 10 mg once weekly. Has been tolerating the medication well, had some stomach upset when she first began the dose however has resolved now. Reports good diet and protein consumption. Resistance training 3-4 times per week. Will continue current dose of Zepbound. Discussed proper use of the medication including rotating injection sites and expected side effect profile including but not limited to nausea, constipation, abdominal pain, and heartburn. She will follow-up in the office in approximately 4 weeks for weight management. All patient questions answered at this time. All questions have been answered to patient's satisfaction. Patient verbalized understanding of diagnosis and treatments explained. Advised to call sooner prior to next visit it any questions/concerns arise. Case discussed with collaborating physician Maura De La Vega who reviewed the assessment and plan. Chart, medications, labs, vital signs reviewed. Dictation was accomplished with the use of [employer] voice recognition software, which is prone to medical misidentifications and grammatical errors. This are unintentional and the practitioner does try to identify and correct these, but some could still be present. Please do not hesitate to contact practitioner for clarification. 06/11/2024 Vitamin D deficiency, unspecified (ICD-10 - E55.9) #Weight Management 06/11/2024 _update labs prior to next visit Thriving otherwise Continue 10 mg dosing with option to increase to 12.5 Total time spent today was 30 minutes of which greater than 50% was spent on coordinating and counseling Patient has been found to be overweight with a BMI of (28). Patient has overweight class per BMI standards We are a board certified obesity and weight management practice Patient has trialed behavioral modification, dietary restrictions and exercise for a minimum of 6 months The most recent [place] [employer] clinical endocrinologists and [place] [employer] guidelines recommend patients who have overweight BMI or obesity BMI, who also have metabolic syndrome, prediabetes, HLD, and other comorbidities or at risk of developing type 2 diabetes should aim for a weight loss goal of at least 10% of the baseline body weight Patient counseled regarding effects of GLP/GIP-1 agonists, and other FDA approved wgt loss meds with regards to a multifactorial approach of weight loss as mentioned above and not solely appetite suppression. We have discussed the mechanism of GLP-1's/GIP, dual incretins I think this would be fantastic option for her given her metabolic workup and body composition We have discussed the risks and benefits and side effects including/and not limited to Sarcopenia, intestinal obstruction, constipation, nausea, lethargy, headache Discussed importance of protein consumption for muscle maintenance as well as strength and resistance training ,probiotics, B12 complex biotin , iron and other nutrients, To help avoid telogen effluvium There is no history of medullary thyroid cancer or multiple endocrine neoplasia There is also no history of cardiovascular disease, hypertension, palpitations, or arrhythmias In the setting of potential stimulant/amphetamine use such as phentermine We have also discussed risks and benefits, and the use of compounded medications to help offset the national shortages as well as financial implications vs trade name drugs GLP must be discontinued upon initiation We have discussed the lifelong requirement of nutritional supplementation And adherence to an exercise regimen as well as importance We did discuss the neurohormonal changes that are occurring with these medications and Need for long-term Continued usage The patient understands and agrees Patient was reassured and welcomed to the practice. We discussed that we stress a hollistic medical approach with emphasis on lifestyle modification. Patient was informed that a healthy lifestyle with exercise and good eating habits can help reduce his risk of medical complications. He is explained that obesity increases his risk of diabetes, cardiovascular disease, or organ damage. We spent a lot of time discussing the relationship between food, exercise, sleep, mental health and obesity. Patient was counseled on the importance EATING local, organic food when possible. Patient was educated on clean 15 and dirty dozen. I provided information about reading books called The Food Rules by Dc Lowry and Eat Fat Get Lean by Dr Howard De Leon. Self education is important in the journey for weight management. Patient was offered diagnostic testing. We want to measure visceral adiposity, advanced body composition, adverse lipids, fatty acid balance, risk for heart disease and atherosclerosis, markers of inflammation and genetic susceptibility. Patient was counseled on weight management and was advised to lose weight using A. Meal Replacement Products We discussed the lifelong requirement of nutritional supplementation and adherence to an exercise regimen as well as importance of dietary f/u Patient was educated on the replacement products called optifast. This is a good way of taking fixed amount of calories. It has been shown in studies to be ineffective weight management tool. We also recommend maintaining adequate protein intake and muscle composition, 1.5mg/kg This however has to be coupled with lifestyle intervention as well as laboratory data and EKG monitoring. It is impossible to know how a person will tolerate complete meal replacement. The side effects of meal replacement and weight loss could include syncopal attacks, dizziness, gallstones, potential cholecystectomy, possible heart attack and even . The benefits of meal replacement would be potential weight loss but no guarantees can be made. Meal replacement products are not covered by insurance. Once the patient has bought these products we cannot return them B. Lifestyle management which includes several strategies as below 1. Eat a low carbohydrate good fat good protein diet. Eliminate refined carbohydrates from the diet. Continue blood sugar and sugared beverages. Eat local organic when possible. Cook your own meals. Read food labels. None about healthy snacks. Portion control and food with low glycemic index 2. Exercise regularly. Try to get at least 6000 steps a day. Use a predominant to track activity level. Consider using apps like [employer], [employer], lose it, stick as needed for self-monitoring and weight management. Consider group exercises. Consider hiring a health and safety trainer. Regular exercise is lucas to sustainable health and prevents as a buffer against weight regain 3. Sleep is most important for healing. Tried to sleep at least 8 hours a night. A good quality sleep needs a sleep ritual with ideal room temperature of around 68. It might help to take a shower and have no electronics in the room and sleep in a very dark room without artificial light. Start her sleep routine and get up early in the morning and go to bed on time 4. Make a social connection. Surround yourself with positive people with positive energy. Connect with friends and family. 5. Get into the habit of meditating and mindfulness while doing everything. 6. Go outside and connect with nature. C. Prescription medications Patient was educated on the use of prescription medications for medical weight loss. This is a growing list and includes phentermine, Topamax,Qsymia, contrave, belviq and saxenda, wegovy All prescription medications could have side effects including but not limited to kidney stones, seizure disorder cardiac arrhythmias heart attack pancreatitis etc. etc.. Patient was encouraged to read the prescription insert and have coaching with their pharmacist and make an informed decision about taking medication and know that these medications are being prescribed with good intentions and we do not know how a patient would react to her medication. Sudden medications are FDA approved for weight loss and there is also off label use depending on patient's inability to afford medications in an attempt to lose weight D. Behavioral counseling was done to establish a relationship between food and an mood. Patient was provided information about local counseling and psychiatry and Dr Solis at [facility]. We would like to cover regular topics and build on low glycemic eating exercise mindful eating, using yoga and meditation along with deep breathing and connecting with friends and family. E. MASS PAT reviewed, Patient's current medications were reviewed and opinion was given on medication that can cause weight gain and can be substituted F. Patient was assessed for risk with obesity including and not limiting to atherosclerosis heart disease stroke kidney disease, restrictive lung disease, irritable bowel syndrome and overall mortality. Risk of developing prediabetes diabetes and metabolic syndrome was discussed G. Therapeutic plan: We have decided to make therapeutic plan which would include choosing wisely on calories restricting portion getting active, tracking weight, getting good quality sleep and working on time management H. Patient will follow up in (4) weeks for weight management Of note, some information is being carried forward from prior records for informational purposes only and is being cited so that efficiency, safety and quality of the patient's care is not compromised This note was prepared using voice recognition software and direct typing Please excuse inadvertent digital solution architect or typing errors, or uncorrected word substitutions Although every attempt has been made by the provider to proofread this document, occasional misspellings and typographical errors may still be present Due to the previous pandemic, and the use of personal protective equipment (PPE) This may decrease voice recognition accuracy Inadvertent digital solution architect errors may occur 04/04/2024 History of gastric bypass (ICD-10 - Z98.84) Patient is here for weight management follow-up. We focused on significance of healthy lifestyle changes. We talked about need to track steps with goal between 6000-10,000 steps daily, focus on portion control, read food labels, get adequate sleep between 7 to 8 hours, get adequate rest to the body, meditate, frequent nutritious meals including vegetables and healthy choices of lean meats, fish, and elimination of refined carbohydrates. We also talked about mindfulness and mindful eating. Particular focus was on (). Total time spent with 30 minutes with greater than 50% spent on counseling and coordinating care. 04/04/2024: Weight 160 pounds, BMI 28.34. Edgardo scan completed and interpreted with the patient. Currently taking Zepbound 10 mg once weekly. Has been tolerating the medication well, had some stomach upset when she first began the dose however has resolved now. Reports good diet and protein consumption. Resistance training 3-4 times per week. Will continue current dose of Zepbound. Discussed proper use of the medication including rotating injection sites and expected side effect profile including but not limited to nausea, constipation, abdominal pain, and heartburn. She will follow-up in the office in approximately 4 weeks for weight management. All patient questions answered at this time. All questions have been answered to patient's satisfaction. Patient verbalized understanding of diagnosis and treatments explained. Advised to call sooner prior to next visit it any questions/concerns arise. Case discussed with collaborating physician Maura De La Vega who reviewed the assessment and plan. Chart, medications, labs, vital signs reviewed. Dictation was accomplished with the use of [employer] voice recognition software, which is prone to medical misidentifications and grammatical errors. This are unintentional and the practitioner does try to identify and correct these, but some could still be present. Please do not hesitate to contact practitioner for clarification. 07/25/2024 Vitamin D deficiency, unspecified (ICD-10 - E55.9) #Weight Management 07/25/2024 labs reviewed Thriving otherwise Continue 10 mg dosing with option to increase to 12.5 Total time spent today was 30 minutes of which greater than 50% was spent on coordinating and counseling Patient has been found to be overweight with a BMI of (27). Patient has overweight class per BMI standards We are a board certified obesity and weight management practice Of note, some information is being carried forward from prior records for informational purposes only and is being cited so that efficiency, safety and quality of the patient's care is not compromised This note was prepared using voice recognition software and direct typing Please excuse inadvertent digital solution architect or typing errors, or uncorrected word substitutions Although every attempt has been made by the provider to proofread this document, occasional misspellings and typographical errors may still be present Due to the previous pandemic, and the use of personal protective equipment (PPE) This may decrease voice recognition accuracy Inadvertent digital solution architect errors may occur 09/18/2024 Dietary counseling and surveillance (ICD-10 - Z71.3) #Weight Management 09/18/2024 labs reviewed Thriving otherwise incr to 15mg Total time spent today was 30 minutes of which greater than 50% was spent on coordinating and counseling Patient has been found to be overweight with a BMI of (27). Patient has overweight class per BMI standards We are a board certified obesity and weight management practice Of note, some information is being carried forward from prior records for informational purposes only and is being cited so that efficiency, safety and quality of the patient's care is not compromised This note was prepared using voice recognition software and direct typing Please excuse inadvertent digital solution architect or typing errors, or uncorrected word substitutions Although every attempt has been made by the provider to proofread this document, occasional misspellings and typographical errors may still be present Due to the previous pandemic, and the use of personal protective equipment (PPE) This may decrease voice recognition accuracy Inadvertent digital solution architect errors may occur 11/07/2024 Vitamin D deficiency, unspecified (ICD-10 - E55.9) #Weight Management 11/07/2024 labs reviewed Thriving otherwise Decrease to Zepound 10mg Total time spent today was 30 minutes of which greater than 50% was spent on coordinating and counseling Patient has been found to be overweight with a BMI of (26). Patient has overweight class per BMI standards We are a board certified obesity and weight management practice Of note, some information is being carried forward from prior records for informational purposes only and is being cited so that efficiency, safety and quality of the patient's care is not compromised This note was prepared using voice recognition software and direct typing Please excuse inadvertent digital solution architect or typing errors, or uncorrected word substitutions Although every attempt has been made by the provider to proofread this document, occasional misspellings and typographical errors may still be present Due to the previous pandemic, and the use of personal protective equipment (PPE) This may decrease voice recognition accuracy Inadvertent digital solution architect errors may occur 12/19/2024 Vitamin D deficiency, unspecified (ICD-10 - E55.9) #Weight Management 12/19/2024 BMI 27.8, +3.8lbs fat mass, -0.7 muscle mass Patient has been off medications for two weeks due to insurance issues more h2o weight on body comp obv incr in fat mass, will check on PA Patient started creatinine every day 2 months ago, most likely contributing to water retention Total time spent today was 30 minutes of which greater than 50% was spent on coordinating and counseling Patient has been found to be overweight with a BMI of (27). Patient has overweight class per BMI standards We are a board certified obesity and weight management practice Of note, some information is being carried forward from prior records for informational purposes only and is being cited so that efficiency, safety and quality of the patient's care is not compromised This note was prepared using voice recognition software and direct typing Please excuse inadvertent digital solution architect or typing errors, or uncorrected word substitutions Although every attempt has been made by the provider to proofread this document, occasional misspellings and typographical errors may still be present Due to the previous pandemic, and the use of personal protective equipment (PPE) This may decrease voice recognition accuracy Inadvertent digital solution architect errors may occur 02/14/2025 Vitamin D deficiency, unspecified (ICD-10 - E55.9) #Weight Management 02/14/2025 Approaching target goal weight Discussed maintenance dosing in the upcoming future Continue current dosing model Total time spent today was 30 minutes of which greater than 50% was spent on coordinating and counseling Patient has been found to be overweight with a BMI of (26). Patient has overweight class per BMI standards We are a board certified obesity and weight management practice Of note, some information is being carried forward from prior records for informational purposes only and is being cited so that efficiency, safety and quality of the patient's care is not compromised This note was prepared using voice recognition software and direct typing Please excuse inadvertent digital solution architect or typing errors, or uncorrected word substitutions Although every attempt has been made by the provider to proofread this document, occasional misspellings and typographical errors may still be present Due to the previous pandemic, and the use of personal protective equipment (PPE) This may decrease voice recognition accuracy Inadvertent digital solution architect errors may occur 02/14/2025 Encounter for examination of blood pressure without abnormal findings (ICD-10 - Z01.30) #Weight Management 02/14/2025 Approaching target goal weight Discussed maintenance dosing in the upcoming future Continue current dosing model Total time spent today was 30 minutes of which greater than 50% was spent on coordinating and counseling Patient has been found to be overweight with a BMI of (26). Patient has overweight class per BMI standards We are a board certified obesity and weight management practice Of note, some information is being carried forward from prior records for informational purposes only and is being cited so that efficiency, safety and quality of the patient's care is not compromised This note was prepared using voice recognition software and direct typing Please excuse inadvertent digital solution architect or typing errors, or uncorrected word substitutions Although every attempt has been made by the provider to proofread this document, occasional misspellings and typographical errors may still be present Due to the previous pandemic, and the use of personal protective equipment (PPE) This may decrease voice recognition accuracy Inadvertent digital solution architect errors may occur 12/19/2024 Encounter for examination of blood pressure without abnormal findings (ICD-10 - Z01.30) #Weight Management 12/19/2024 BMI 27.8, +3.8lbs fat mass, -0.7 muscle mass Patient has been off medications for two weeks due to insurance issues more h2o weight on body comp obv incr in fat mass, will check on PA Patient started creatinine every day 2 months ago, most likely contributing to water retention Total time spent today was 30 minutes of which greater than 50% was spent on coordinating and counseling Patient has been found to be overweight with a BMI of (27). Patient has overweight class per BMI standards We are a board certified obesity and weight management practice Of note, some information is being carried forward from prior records for informational purposes only and is being cited so that efficiency, safety and quality of the patient's care is not compromised This note was prepared using voice recognition software and direct typing Please excuse inadvertent digital solution architect or typing errors, or uncorrected word substitutions Although every attempt has been made by the provider to proofread this document, occasional misspellings and typographical errors may still be present Due to the previous pandemic, and the use of personal protective equipment (PPE) This may decrease voice recognition accuracy Inadvertent digital solution architect errors may occur 11/07/2024 Encounter for examination of blood pressure without abnormal findings (ICD-10 - Z01.30) #Weight Management 11/07/2024 labs reviewed Thriving otherwise Decrease to Zepound 10mg Total time spent today was 30 minutes of which greater than 50% was spent on coordinating and counseling Patient has been found to be overweight with a BMI of (26). Patient has overweight class per BMI standards We are a board certified obesity and weight management practice Of note, some information is being carried forward from prior records for informational purposes only and is being cited so that efficiency, safety and quality of the patient's care is not compromised This note was prepared using voice recognition software and direct typing Please excuse inadvertent digital solution architect or typing errors, or uncorrected word substitutions Although every attempt has been made by the provider to proofread this document, occasional misspellings and typographical errors may still be present Due to the previous pandemic, and the use of personal protective equipment (PPE) This may decrease voice recognition accuracy Inadvertent digital solution architect errors may occur 09/18/2024 Vitamin D deficiency, unspecified (ICD-10 - E55.9) #Weight Management 09/18/2024 labs reviewed Thriving otherwise incr to 15mg Total time spent today was 30 minutes of which greater than 50% was spent on coordinating and counseling Patient has been found to be overweight with a BMI of (27). Patient has overweight class per BMI standards We are a board certified obesity and weight management practice Of note, some information is being carried forward from prior records for informational purposes only and is being cited so that efficiency, safety and quality of the patient's care is not compromised This note was prepared using voice recognition software and direct typing Please excuse inadvertent digital solution architect or typing errors, or uncorrected word substitutions Although every attempt has been made by the provider to proofread this document, occasional misspellings and typographical errors may still be present Due to the previous pandemic, and the use of personal protective equipment (PPE) This may decrease voice recognition accuracy Inadvertent digital solution architect errors may occur Plan Of Treatment Pending Test Test Name Order Date LIPID PANEL, STANDARD 06/11/2024 COMPREHENSIVE METABOLIC PANEL 06/11/2024 COMPREHENSIVE METABOLIC PANEL 11/02/2023 CBC (INCLUDES DIFF/PLT) 11/02/2023 CBC (INCLUDES DIFF/PLT) 06/11/2024 URINALYSIS, COMPLETE 06/11/2024 HEMOGLOBIN A1c 06/11/2024 VITAMIN B12 11/02/2023 TSH 11/02/2023 TSH 06/11/2024 VITAMIN D,25-OH,TOTAL,IA 06/11/2024 VITAMIN D,25-OH,TOTAL,IA 11/02/2023 Next Appt Details Provider Name:DIEGO TINAJERO, 04/08/2025 03:15:00 PM, [address] [place] [address] [address], [place], [address], Insurance Providers Payer Name Payer Address Payer Phone Subscriber Number Group Number Insured Name Patient Relationship to Insured Coverage Start Date Coverage End Date [facility] [address] [place] [address] [id number] Zita Cerna Self - patient is the insured Medications Administered Medication Instructions Date of Administration Dosage Notes Tirzepatide 08/25/2023 2.5 mg Tirzepatide 08/31/2023 2.5 mg Tirzepatide 09/08/2023 2.5 mg Tirzepatide 09/15/2023 2.5 mg Tirzepatide 09/22/2023 5 mg Tirzepatide 09/29/2023 5.0 mg LLQ SQ Tirzepatide 10/06/2023 5 mg Tirzepatide 10/13/2023 5 mg Tirzepatide 10/19/2023 7.5 mg Tirzepatide 10/27/2023 7.5 mg Tirzepatide 11/02/2023 7.5 mg Tirzepatide 11/09/2023 7.5 mg Tirzepatide 11/17/2023 7.5 mg Tirzepatide 11/23/2023 7.5 mg Tirzepatide 11/30/2023 7.5 mg Medical (General) History Medical History History ICD Code anxiety depression seasonal allergies headache fractures/ broken bones weight gain/loss Surgical History Surgery Date(Month/Year) gastric sleeve Cholecystectomy Tubal ligation
--- OUTSIDE RECORDS SUMMARY | 2025-03-05 16:30 | XMS_ITS | Clinical Summary ---
Author Organization [address] Address [address] [place] [id number] Phone Care Team Providers Care Time Study Clerk Name Role Phone Balta Morales NP Primary Care Provider [phone] Social History Tobacco Use Types Packs/Day Years Used Date Smoking Tobacco: Never Assessed Comments Unknown Sex and Gender Information Value Date Recorded Sex Assigned at Not on file Legal Sex Female 12:59 AM EST Gender Identity Not on file Sexual Orientation Not on file Plan of Treatment Health Maintenance Due Date Last Done Comments Breast Cancer Screening 1977 Colorectal Cancer Screening: Colonoscopy 1977 DTaP,Tdap,and Td Vaccines (1 - Tdap) 02/21/1996 Hepatitis B Vaccines (1 of 3 - 19+ 3-dose series) 02/21/1996 Cervical Cancer Screening: P ap Smear 1998 Depression Screening 05/30/2024 HIV Screening 07/16/2024 Hepatitis C Screening 07/16/2024 Social Influencers of Health Screening 07/16/2024 COVID-19 Vaccine ( - 2023-2 5 season) 2025 Influenza Vaccine (#1) 2025 Cholesterol Screening (Lipid Panel) 07/16/2029 07/16/2024 RSV Immunization Adult Patie nts (1 - 1-dose 75+ series) 02/21/2052 HIB Vaccines Aged Out No longer eligi [...] 5 Years) and At-Risk Patients (6 to 49 Years) Aged Out No longer eligi ble [...] mg/dL LAB CHEMISTRY METHOD 07/16/2024 1:[address] [facility] Triglycerides 51 0 - 150 mg/dL LAB CHEMISTRY METHOD 07/16/2024 1:[address] [facility] HDL 50 >=40 mg/dL LAB CHEMISTRY METHOD 07/16/2024 1:[address] [facility] LDL Calculated 94 0 - 100 mg/dL LAB CHEMISTRY METHOD 07/16/2024 1:[address] [facility] VLDL Cholesterol Josue 10.2 mg/dL LAB CHEMISTRY METHOD 07/16/2024 1:[address] [facility] Non HDL Chol. (LDL+VLDL) 104 <145 mg/dL LAB CHEMISTRY METHOD 07/16/2024 1:[address] [facility] Chol/HDL Ratio 3.1 0.0 - 4.4 LAB CHEMISTRY METHOD 07/16/2024 1:[address] [facility] Blood Venous blood specimen / Unknown Venipuncture / Unknown 07/16/2024 9:00 AM EST 07/16/2024 12:30 PM EST us Balta Morales EVENT REPRESENTATIVE LAB BLOOD ORDERABLES Final Re sult [facility] [address] [place] [address], [place] [phone] from Last 3 Months or Most Recently Relevant to Health Maintenance [place] [phone] [facility] Care Teams Time Study Clerk Relationship Specialty Start Date End Date Balta Morales, LIAM [address] [address] PCP - General Nurse Practitioner 07/16/24
== END 2025-03-05 13:48 | disposition home or self-care (01) ==
PROVIDERS: PCP Internal Medicine; Visit Provider Internal Medicine
DX: H10.32 Unspecified acute conjunctivitis, left eye (principal)

== ENCOUNTER 2025-03-07 16:21 | Outpatient (AMB) | payer BC, SELFPAY ==
--- OUTSIDE RECORDS SUMMARY | 2025-03-07 16:24 | XMS_ITS | Clinical Summary ---
Author Organization [address] Address [address] [place] [phone] Phone Care Team Providers Care Detention Worker Name Role Phone Balta Morales NP Primary Care Provider [phone] Social History Tobacco Use Types Packs/Day Years [...] mg/dL LAB CHEMISTRY METHOD 07/16/2024 1:23 PM [facility] Triglycerides 51 0 - 150 mg/dL LAB CHEMISTRY METHOD 07/16/2024 1:23 PM [facility] HDL 50 >=40 mg/dL LAB CHEMISTRY METHOD 07/16/2024 1:23 PM [facility] LDL Calculated 94 0 - 100 mg/dL LAB CHEMISTRY METHOD 07/16/2024 1:23 PM [facility] VLDL Cholesterol Josue 10.2 mg/dL LAB CHEMISTRY METHOD 07/16/2024 1:23 PM [facility] Non HDL Chol. (LDL+VLDL) 104 <145 mg/dL LAB CHEMISTRY METHOD 07/16/2024 1:23 PM [facility] Chol/HDL Ratio 3.1 0.0 - 4.4 LAB CHEMISTRY METHOD 07/16/2024 1:23 PM [facility] Blood Venous blood specimen / Unknown Venipuncture / Unknown 07/16/2024 9:00 AM EST 07/16/2024 12:30 PM EST us Balta Morales AUTOMOTIVE PAINTER HELPER LAB BLOOD ORDERABLES Final Re sult [facility] [address] [place] [address], [place] [phone] from Last 3 Months or Most Recently Relevant to Health Maintenance [place] [address] [facility] Care Teams Detention Worker Relationship Specialty Start Date End Date Balta Morales, LIAM [address] [address] PCP - General Nurse Practitioner 07/16/24
--- OUTSIDE RECORDS SUMMARY | 2025-03-07 16:24 | XMS_ITS | Patient Health Record ---
Author Organization [facility] [address] Address [address] [place] [address] Care Team Providers Care Building Architect Name Role Phone DIEGO TINAJERO Unavailable [phone] HIRAM ZAMUDIO Unavailable [phone] Allergies No Known Allergies Results Component Value Reference Range Notes URINALYSIS WITH REFLEX MICRO SCOPIC Reviewed date:07/17/2024 08:06:35 AM Interpretation: Performing Lab: Notes/Report: Specific [place] Urine 1.025 1.003-1.030 pH, Urine 6.0 5.0-8.0 [...] w eekly; Duration: 30 days 09/18/2024 Not-Taking [place] 3 1000 MG 1 capsule Orally Thr ee times a day Not-Taking Zepbound 10 MG/0.5ML 10mg Subcutaneous w eekly; Duration: 30 days Active Apple Cider Vinegar 500 MG as directed Orally Active Problems Problem Type SNOMED Code ICD Code Onset Dates Problem Status W/U Status Risk Notes Problem Vitamin D deficiency (92004294) Vitamin D deficiency, unspecified (E55.9) Active confirmed Problem Obesity due to excess calories (525422233) Other obesity due to excess calories (E66.09) Active confirmed Problem Overweight (946867223) Overweight (E66.3) Active confirmed Problem Fatigue (33541405) Fatigue, unspecified type (R53.83) Active confirmed Problem Body mass index 35.00 to 39.99 (73253491756667 5) Body mass index [BMI] 37.0-37.9, adult (Z68.37) Active confirmed Problem Body mass index 30.00 to 34.99 (00561381631060 7) BMI 31.0-31.9,adult (Z68.31) Active confirmed Problem Body mass index 30.00 to 34.99 (83903383200203 7) BMI 34.0-34.9,adult (Z68.34) Active confirmed Problem Overweight (158925262) Overweight (BMI 25.0-29.9) (E66.3) Active confirmed Problem History of gastric bypass (892819844) History of gastric bypass (Z98.84) Active confirmed Vital Signs Heart Rate 91 /min 02/14/2025 Oximetry 99 % 02/14/2025 Blood pressure diastolic 78 mm Hg 02/14/2025 Height 63 in 02/14/2025 Blood pressure systolic 126 mm Hg 02/14/2025 Weight 149.3 lbs 02/14/2025 BMI 26.44 kg/m2 02/14/2025 Encounters Encounter Location Date Provider Diagnosis [facility] [address] [id number] 04/04/2024 HIRAM ZAMUDIO Overweight E66.3 ; B NM 28.0-28.9,adult Z68.28 ; Nutritional counseling Z71.3 and History of gastric bypass Z98.84 [facility] [address] [address] 06/11/2024 DIEGO BORHOT Overweight (BMI 25.0-29.9) E66.3 ; BMI 28.0-28.9,adult Z68.28 ; Dietary counseling and surveillance Z71.3 and Vitamin D deficiency, unspecified E55.9 [facility] SU[facility] [address] 07/25/2024 DIEGO BORHOT Overweight (BMI 25.0-29.9) E66.3 ; BMI 27.0-27.9,adult Z68.27 ; Dietary counseling and surveillance Z71.3 and Vitamin D deficiency, unspecified E55.9 [facility] [facility] [address] 09/18/2024 DIEGO BORHOT Overweight (BMI 25.0-29.9) E66.3 ; BMI 27.0-27.9,adult Z68.27 ; Dietary counseling and surveillance Z71.3 and Vitamin D deficiency, unspecified E55.9 [facility] SU[facility] [address] 11/07/2024 DIEGO BORHOT Overweight (BMI 25.0-29.9) E66.3 ; BMI 26.0-26.9,adult Z68.26 ; Dietary counseling and surveillance Z71.3 ; Vitamin D deficiency, unspecified E55.9 and Encounter for examination of blood pressure without abnormal findings Z01.30 [facility] [address] [address] 12/19/2024 DIEGO BORHOT BMI 27.0-27.9,adult Z68.27 ; Overweight (BMI 25.0-29.9) E66.3 ; Dietary counseling and surveillance Z71.3 ; Vitamin D deficiency, unspecified E55.9 and Encounter for examination of blood pressure without abnormal findings Z01.30 [facility] [address] [address] 02/14/2025 DIEGO BORHOT BMI 26.0-26.9,adult Z68.26 ; Overweight (BMI 25.0-29.9) E66.3 ; Dietary counseling and surveillance Z71.3 ; Vitamin D deficiency, unspecified E55.9 and Encounter for examination of blood pressure without abnormal findings Z01.30 [facility] [address] [address] 12/19/2024 DIEGO BORHOT Assessments Encounter Date Diagnosis [...] Dictation was accomplished with the use of [employer] voice recognition software, which is prone to [...] Dictation was accomplished with the use of [employer] voice recognition software, which is prone to [...] minimum of 6 months The most recent [place] [employer] of clinical endocrinologists and [employer] of endocrinology guidelines recommend patients who [...] track activity level. Consider using apps like BloomThat, DeviceAuthoritypal, lose it, stick as needed for self-monitoring and weight management. Consider group exercises. Consider hiring a personal banker. Regular exercise is lucas to sustainable health [...] counseling and psychiatry and Dr Sol[facility] [employer]. We would like to cover regular topics [...] software and direct typing Please excuse inadvertent adventure guide or typing errors, or uncorrected word substitutions Although every attempt has been made by the provider to proofread this document, occasional misspellings and typographical errors may still be present Due to the previous pandemic, and the use of personal protective equipment (PPE) This may decrease voice recognition accuracy Inadvertent adventure guide errors may occur 06/11/2024 Overweight (BMI 25.0-29.9) [...] minimum of 6 months The most recent [employer] of clinical endocrinologists and [employer] of endocrinology guidelines recommend patients who [...] track activity level. Consider using apps like BloomThat, DeviceAuthor[employer]pal, lose it, stick as needed for self-monitoring and weight management. Consider group exercises. Consider hiring a personal banker. Regular exercise is lucas to sustainable health [...] counseling and psychiatry and Dr Solis at [facility] [employer]. We would like to cover regular topics [...] software and direct typing Please excuse inadvertent adventure guide or typing errors, or uncorrected word substitutions Although every attempt has been made by the provider to proofread this document, occasional misspellings and typographical errors may still be present Due to the previous pandemic, and the use of personal protective equipment (PPE) This may decrease voice recognition accuracy Inadvertent adventure guide errors may occur 07/25/2024 BMI 27.0-27.9,adult (ICD-10 [...] software and direct typing Please excuse inadvertent adventure guide or typing errors, or uncorrected word substitutions Although every attempt has been made by the provider to proofread this document, occasional misspellings and typographical errors may still be present Due to the previous pandemic, and the use of personal protective equipment (PPE) This may decrease voice recognition accuracy Inadvertent adventure guide errors may occur 07/25/2024 Overweight (BMI 25.0-29.9) [...] software and direct typing Please excuse inadvertent adventure guide or typing errors, or uncorrected word substitutions Although every attempt has been made by the provider to proofread this document, occasional misspellings and typographical errors may still be present Due to the previous pandemic, and the use of personal protective equipment (PPE) This may decrease voice recognition accuracy Inadvertent adventure guide errors may occur 11/07/2024 BMI 26.0-26.9,adult (ICD-10 [...] software and direct typing Please excuse inadvertent adventure guide or typing errors, or uncorrected word substitutions Although every attempt has been made by the provider to proofread this document, occasional misspellings and typographical errors may still be present Due to the previous pandemic, and the use of personal protective equipment (PPE) This may decrease voice recognition accuracy Inadvertent adventure guide errors may occur 11/07/2024 Overweight (BMI 25.0-29.9) [...] software and direct typing Please excuse inadvertent adventure guide or typing errors, or uncorrected word substitutions Although every attempt has been made by the provider to proofread this document, occasional misspellings and typographical errors may still be present Due to the previous pandemic, and the use of personal protective equipment (PPE) This may decrease voice recognition accuracy Inadvertent adventure guide errors may occur 09/18/2024 Overweight (BMI 25.0-29.9) [...] software and direct typing Please excuse inadvertent adventure guide or typing errors, or uncorrected word substitutions Although every attempt has been made by the provider to proofread this document, occasional misspellings and typographical errors may still be present Due to the previous pandemic, and the use of personal protective equipment (PPE) This may decrease voice recognition accuracy Inadvertent adventure guide errors may occur 12/19/2024 BMI 27.0-27.9,adult (ICD-10 [...] software and direct typing Please excuse inadvertent adventure guide or typing errors, or uncorrected word substitutions Although every attempt has been made by the provider to proofread this document, occasional misspellings and typographical errors may still be present Due to the previous pandemic, and the use of personal protective equipment (PPE) This may decrease voice recognition accuracy Inadvertent adventure guide errors may occur 02/14/2025 BMI 26.0-26.9,adult (ICD-10 [...] software and direct typing Please excuse inadvertent adventure guide or typing errors, or uncorrected word substitutions Although every attempt has been made by the provider to proofread this document, occasional misspellings and typographical errors may still be present Due to the previous pandemic, and the use of personal protective equipment (PPE) This may decrease voice recognition accuracy Inadvertent adventure guide errors may occur 02/14/2025 Overweight (BMI 25.0-29.9) [...] software and direct typing Please excuse inadvertent adventure guide or typing errors, or uncorrected word substitutions Although every attempt has been made by the provider to proofread this document, occasional misspellings and typographical errors may still be present Due to the previous pandemic, and the use of personal protective equipment (PPE) This may decrease voice recognition accuracy Inadvertent adventure guide errors may occur 02/14/2025 Dietary counseling and [...] software and direct typing Please excuse inadvertent adventure guide or typing errors, or uncorrected word substitutions Although every attempt has been made by the provider to proofread this document, occasional misspellings and typographical errors may still be present Due to the previous pandemic, and the use of personal protective equipment (PPE) This may decrease voice recognition accuracy Inadvertent adventure guide errors may occur 12/19/2024 Overweight (BMI 25.0-29.9) [...] software and direct typing Please excuse inadvertent adventure guide or typing errors, or uncorrected word substitutions Although every attempt has been made by the provider to proofread this document, occasional misspellings and typographical errors may still be present Due to the previous pandemic, and the use of personal protective equipment (PPE) This may decrease voice recognition accuracy Inadvertent adventure guide errors may occur 11/07/2024 Dietary counseling and [...] software and direct typing Please excuse inadvertent adventure guide or typing errors, or uncorrected word substitutions Although every attempt has been made by the provider to proofread this document, occasional misspellings and typographical errors may still be present Due to the previous pandemic, and the use of personal protective equipment (PPE) This may decrease voice recognition accuracy Inadvertent adventure guide errors may occur 12/19/2024 Dietary counseling and [...] software and direct typing Please excuse inadvertent adventure guide or typing errors, or uncorrected word substitutions Although every attempt has been made by the provider to proofread this document, occasional misspellings and typographical errors may still be present Due to the previous pandemic, and the use of personal protective equipment (PPE) This may decrease voice recognition accuracy Inadvertent adventure guide errors may occur 09/18/2024 BMI 27.0-27.9,adult (ICD-10 [...] software and direct typing Please excuse inadvertent adventure guide or typing errors, or uncorrected word substitutions Although every attempt has been made by the provider to proofread this document, occasional misspellings and typographical errors may still be present Due to the previous pandemic, and the use of personal protective equipment (PPE) This may decrease voice recognition accuracy Inadvertent adventure guide errors may occur 06/11/2024 Dietary counseling and [...] minimum of 6 months The most recent [employer] of clinical endocrinologists and [employer] of endocrinology guidelines recommend patients who [...] track activity level. Consider using apps like BloomThat, [employer], lose it, stick as needed for self-monitoring and weight management. Consider group exercises. Consider hiring a personal banker. Regular exercise is lucas to sustainable health [...] counseling and psychiatry and Dr Solis [facility] [employer]. We would like to cover regular topics [...] software and direct typing Please excuse inadvertent adventure guide or typing errors, or uncorrected word substitutions Although every attempt has been made by the provider to proofread this document, occasional misspellings and typographical errors may still be present Due to the previous pandemic, and the use of personal protective equipment (PPE) This may decrease voice recognition accuracy Inadvertent adventure guide errors may occur 07/25/2024 Dietary counseling and [...] software and direct typing Please excuse inadvertent adventure guide or typing errors, or uncorrected word substitutions Although every attempt has been made by the provider to proofread this document, occasional misspellings and typographical errors may still be present Due to the previous pandemic, and the use of personal protective equipment (PPE) This may decrease voice recognition accuracy Inadvertent adventure guide errors may occur 04/04/2024 Nutritional counseling (ICD-10 [...] Dictation was accomplished with the use of [employer] voice recognition software, which is prone to [...] minimum of 6 months The most recent [place] [employer] of clinical endocrinologists and [employer] of endocrinology guidelines recommend patients who [...] track activity level. Consider using apps like moziyise, [employer]pal, lose it, stick as needed for self-monitoring and weight management. Consider group exercises. Consider hiring a personal banker. Regular exercise is lucas to sustainable health [...] counseling and psychiatry and Dr Solis at [facility] [employer]. We would like to cover regular topics [...] software and direct typing Please excuse inadvertent adventure guide or typing errors, or uncorrected word substitutions Although every attempt has been made by the provider to proofread this document, occasional misspellings and typographical errors may still be present Due to the previous pandemic, and the use of personal protective equipment (PPE) This may decrease voice recognition accuracy Inadvertent adventure guide errors may occur 04/04/2024 History of gastric [...] Dictation was accomplished with the use of [employer] voice recognition software, which is prone to [...] software and direct typing Please excuse inadvertent adventure guide or typing errors, or uncorrected word substitutions Although every attempt has been made by the provider to proofread this document, occasional misspellings and typographical errors may still be present Due to the previous pandemic, and the use of personal protective equipment (PPE) This may decrease voice recognition accuracy Inadvertent adventure guide errors may occur 09/18/2024 Dietary counseling and [...] software and direct typing Please excuse inadvertent adventure guide or typing errors, or uncorrected word substitutions Although every attempt has been made by the provider to proofread this document, occasional misspellings and typographical errors may still be present Due to the previous pandemic, and the use of personal protective equipment (PPE) This may decrease voice recognition accuracy Inadvertent adventure guide errors may occur 11/07/2024 Vitamin D deficiency, [...] software and direct typing Please excuse inadvertent adventure guide or typing errors, or uncorrected word substitutions Although every attempt has been made by the provider to proofread this document, occasional misspellings and typographical errors may still be present Due to the previous pandemic, and the use of personal protective equipment (PPE) This may decrease voice recognition accuracy Inadvertent adventure guide errors may occur 12/19/2024 Vitamin D deficiency, [...] software and direct typing Please excuse inadvertent adventure guide or typing errors, or uncorrected word substitutions Although every attempt has been made by the provider to proofread this document, occasional misspellings and typographical errors may still be present Due to the previous pandemic, and the use of personal protective equipment (PPE) This may decrease voice recognition accuracy Inadvertent adventure guide errors may occur 02/14/2025 Vitamin D deficiency, [...] software and direct typing Please excuse inadvertent adventure guide or typing errors, or uncorrected word substitutions Although every attempt has been made by the provider to proofread this document, occasional misspellings and typographical errors may still be present Due to the previous pandemic, and the use of personal protective equipment (PPE) This may decrease voice recognition accuracy Inadvertent adventure guide errors may occur 02/14/2025 Encounter for examination [...] software and direct typing Please excuse inadvertent adventure guide or typing errors, or uncorrected word substitutions Although every attempt has been made by the provider to proofread this document, occasional misspellings and typographical errors may still be present Due to the previous pandemic, and the use of personal protective equipment (PPE) This may decrease voice recognition accuracy Inadvertent adventure guide errors may occur 12/19/2024 Encounter for examination [...] software and direct typing Please excuse inadvertent adventure guide or typing errors, or uncorrected word substitutions Although every attempt has been made by the provider to proofread this document, occasional misspellings and typographical errors may still be present Due to the previous pandemic, and the use of personal protective equipment (PPE) This may decrease voice recognition accuracy Inadvertent adventure guide errors may occur 11/07/2024 Encounter for examination [...] software and direct typing Please excuse inadvertent adventure guide or typing errors, or uncorrected word substitutions Although every attempt has been made by the provider to proofread this document, occasional misspellings and typographical errors may still be present Due to the previous pandemic, and the use of personal protective equipment (PPE) This may decrease voice recognition accuracy Inadvertent adventure guide errors may occur 09/18/2024 Vitamin D deficiency, [...] software and direct typing Please excuse inadvertent adventure guide or typing errors, or uncorrected word substitutions Although every attempt has been made by the provider to proofread this document, occasional misspellings and typographical errors may still be present Due to the previous pandemic, and the use of personal protective equipment (PPE) This may decrease voice recognition accuracy Inadvertent adventure guide errors may occur Plan Of Treatment Pending Test Test Name Order Date LIPID PANEL, STANDARD 06/11/2024 COMPREHENSIVE METABOLIC PANEL 06/11/2024 COMPREHENSIVE METABOLIC PANEL 11/02/2023 CBC (INCLUDES DIFF/PLT) 11/02/2023 CBC (INCLUDES DIFF/PLT) 06/11/2024 URINALYSIS, COMPLETE 06/11/2024 HEMOGLOBIN A1c 06/11/2024 VITAMIN B12 11/02/2023 TSH 11/02/2023 TSH 06/11/2024 VITAMIN D,25-OH,TOTAL,IA 06/11/2024 VITAMIN D,25-OH,TOTAL,IA 11/02/2023 Next Appt Details Provider Name:DIEGO TINAJERO, 04/08/2025 03:15:00 PM, [address] [place] [address] [address], [place], [address], Insurance Providers Payer Name Payer Address Payer Phone Subscriber Number Group Number Insured Name Patient Relationship to Insured Coverage Start Date Coverage End Date [facility] [address] [place] [address] [id number] Zita Cerna Self - patient is [...]
--- NOTE | 2025-03-07 16:26 | A.OFFPC_ITS ---
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: No Accompanied by: Self / Same As Patient Allergies No Known Allergies Allergy (Unknown, Verified 03/07/25 16:27) UNKNOWN Medication List - Last Reconciled 03/07/25 by Darby Bishop MD levonorgestrel (Mirena) intrauterine polymyxin B sulf-trimethoprim 10,000 unit- 1 mg/mL 1 drp ophthalmic (eye) QID 5 days tirzepatide (weight loss) (Zepbound) 10 mg subcut QWEEK Tobacco use date assessed: 03/07/25 Dental Screening Dental Screen Date: 03/07/25 Did you have a dental visit in the last 12 months?: Yes Did you have a dental problem in the last 6 months where you did not have access to dental care?: No Was dental information given to patient?: Patient has dentist HPI HPI Comments History of Present Illness Details The patient is a 50-year-old female presenting for an annual physical examination. She has undergone several surgeries, including marsupialization in 2019, gastric surgery in 2018, cholecystectomy, and tubal ligation. Her Papanicolaou tests are current. The patient reports consuming alcohol a few times a month and denies any history of smoking. Her family history includes osteoporosis and meningioma in her mother, and diabetes, kidney disease, and heart disease in her father. [facility] Medical History Mild recurrent major depression GEORGES (generalized anxiety disorder) Class 2 obesity with body mass index (BMI) of 36.0 to 36.9 in adult Tension headache Urge and stress incontinence Depression with anxiety Allergic rhinitis Surgical History History of surgery History of gastric surgery History of laparoscopic cholecystectomy History of tubal ligation Family History Father Hypertension Overweight Stroke Enlarged heart Diabetes mellitus CKD stage 3 due to type 2 diabetes mellitus Mother Osteoporosis Hemangiopericytic meningioma Maternal Grandmother Stroke Diabetes mellitus Paternal Grandfather Prostate cancer Family/Other Substance use disorder Mental health disorder Social History Household Members: Children Housing: Apartment Alcohol intake: current Alcohol intake frequency: a few times a month Patient Tobacco Use Status: Never used Tobacco e-Cigarette/Vaping Use: Never Used Second Hand Smoke Exposure: No service: No Current occupational status: employed Current occupational exposures/hazards: No Cognitive needs: No Hearing needs: No Vision needs: No Female Reproductive History Menstrual Age of Menarche: 14 Questionnaire PHQ-9 Over the last 2 weeks, how often have you been bothered by any of the following problems? 1. Little interest or pleasure in doing things: not at all 2. Feeling down, depressed, or hopeless: not at all 3. Trouble falling or staying asleep, or sleeping too much: several days 4. Feeling tired or having little energy: more than half the days 5. Poor appetite or overeating: not at all 6. Feeling bad about yourself - or that you are a failure or have let yourself or your family down: not at all 7. Trouble concentrating on things, such as reading the newspaper or watching television: not at all 8. Moving or speaking so slowly that other people could have noticed. Or the opposite - being so fidgety or restless that you have been moving around a lot more than usual: not at all 9. Thoughts that you would be better off or of hurting yourself in some way: not at all Total score: 3 Depression Screening Interpretation: Negative Depression Screening Done: Yes 05254 - PHQ-9 Billing: Yes Source: Developed by Drs. Cm Jarquin, Pamela Hood, Fuad Arriola and colleagues, with an educational patricia from [employer]. Thrive Questionnaire Date Thrive assessed: 03/05/25 I am a: Patient What is your living situation today?: I have a steady place to live Within the past 12 months, did the food you bought not last and you didn't have the money to get more?: Never true Within the past 12 months, did you worry whether your food would run out before you got money to buy more?: Never true Do you have trouble paying for medicines?: No Do you have trouble getting transportation to medical appointments?: No Do you have trouble paying your heating and electricity bill?: No Do you have trouble taking care of your child, family member or friend?: No Do you have trouble with day-to-day activities such as bathing, preparing meals, shopping, managing finances, etc.?: No Are you currently unemployed and looking for a job?: No Are you interested in more education?: I choose not to answer this question Please select the resources that you would like help with: None Currently or been in a relationship where the following occur: No concerns reported THRIVE Score: 0 AUDIT C Alcohol Use Questionnaire (AUDIT-C) 1. How often do you have a drink containing alcohol?: Monthly or less 2. How many drinks containing alcohol do you have on a typical day when you are drinking?: 1 or 2 3. How often do you have six or more drinks on one occasion?: Never Total Score: 1 Score Reviewed/Action Taken: No GEORGES-7 AMB Questionnaire GEORGES-7 Date GEORGES - 7 assessed: 12/13/23 Feeling nervous, anxious, or on edge: 1 = Several days Not being able to stop or control worryin = Several days Worrying too much about different things: 3 = Nearly every day Trouble relaxin = Several days Being so restless that it is hard to sit still: 0 = Not at all Becoming easily annoyed or irritable: 1 = Several days Feeling afraid as if something awful might happen: 1 = Several days Total GEORGES-7 score (0-4 normal; 5-9 mild; 10-14 moderate; 15-21 severe): 8 Source: Developed by Drs. Cm Jarquin, Pamela Hood, Fuad Arriola and colleagues, with an educational patricia from [employer]. GEORGES-7 Assessment Billing GEORGES-7 Assessment Tool: GEORGES-7 Assessment 54972 Review of Systems Const All systems reviewed & are unremarkable except as noted in HPI and below Card Denies chest pain at rest, Denies chest pain with activity, Denies edema, Denies irregular heart rhythm, Denies claudication, Denies dyspnea, Denies dyspnea on exertion, Denies orthopnea, Denies paroxysmal nocturnal dyspnea and Denies slow heart rate Resp Denies cough, Denies dyspnea and Denies dyspnea on exertion GI Denies abdominal pain, Denies change in bowel habits, Denies excessive flatus, Denies nausea and Denies vomiting Denies urinary incontinence, Denies urinary hesitancy and Denies urinary urgency Musc Denies abnormal gait, Denies atrophy, Denies deformity and Denies limited range of motion Skin/Breast Denies bleeding lesions, Denies changing lesions and Denies rash Neuro Denies abnormal gait and Denies lack of coordination Physical exam (Primary Care) Vital Signs: Last Vital Signs Temp 97.1 F 03/07/25 16:27 Pulse 82 03/07/25 16:27 Resp 18 03/07/25 16:27 BP 118/72 03/07/25 16:27 Pulse Ox 95 03/07/25 16:27 Oxygen Delivery Method Room Air 03/07/25 16:27 BMI result Body Mass Index 25.5 Tobacco/Smoking Status: Tobacco use Status Tobacco use date assessed 03/07/25 03/07/25 16:38 Patient Tobacco Use Status Never used Tobacco 03/07/25 16:38 e-Cigarette/Vaping Use Never Used 03/07/25 16:38 PHQ-9: PHQ-9 Score PHQ-9: Total score 3 03/07/25 16:43 Depression Screening Interpretation: Negative Thrive Assessment: Date of Thrive Assessment Date Thrive assessed 03/05/25 03/07/25 16:38 Currently or been in a relationship where the following occur: No concerns reported [facility] Head: Yes normal to inspection, Yes normocephalic and Yes atraumatic Ears: external ears normal Eyes General: appearance normal, both eyes and all related structures Eyelids: Yes eyelids normal Conjunctivae: conjunctivae normal Neck Neck: Yes normal visual inspection and Yes supple Resp Effort & Inspection: normal respiratory effort Auscultation: clear to auscultation bilaterally Cardio Jugular venous distension: no JVD Rate: regular rate Rhythm: regular rhythm Heart sounds: S1 normal heart sound present and S2 normal heart sound present GI Inspection: Yes normal to inspection Palpation (GI): Soft to palpation and nontender Auscultation: normal bowel sounds Skin General skin exam: no rashes or lesions noted Neuro General: no focal motor deficits Extrem General: Yes full ROM Psych Appearance: grossly normal Coding Level of Care Code Est Pt Prev Care 40-64y(49899) Diagnoses Physical exam Z00.00 Additional Codes GEORGES-7 Assessment Billing - GEORGES-7 Assessment Tool: GEORGES-7 Assessment 66708 ([id number]) PHQ-9 - 95470 - PHQ-9 Billing: Yes ([id number]) Time Spent (min) 30 Assessment & Plan Assessment & Plan (1) Physical exam: Code(s): Z00.00 - Encounter for general adult medical examination without abnormal findings Category: Medical Plan Repeat in a year. Orders: Orders Lipid Panel Today E78.5 - Hyperlipidemia, unspecified Comprehensive [place]. Panel Fast Today Z00.00 - Encounter for general adult medical examination without abnormal findings Referrals Cologuard Test Z12.11 - Encounter for screening for malignant neoplasm of colon, Z12.12 - Encounter for screening for malignant neoplasm of rectum
[2025-03-07 16:27] VITALS: BP 118/72; PULSE 82; RESP 18; TEMP 36.2; O2SAT 95; BMI 25.5
== END 2025-03-07 16:54 | disposition home or self-care (01) ==
LOC: HO.HMCH 16:22
PROVIDERS: PCP Internal Medicine; Visit Provider Internal Medicine
DX: Z00.00 Encounter for general adult medical examination without abnormal findings (principal)

== ENCOUNTER → 2025-03-07 16:21 | Outpatient (BNVA) | payer BC, SELFPAY | PROVIDERS: PCP Internal Medicine; Visit Provider Internal Medicine | DX: Z00.00 Encounter for general adult medical examination without abnormal findings (principal) | CPT/HCPCS: 96127 ==